=== PATIENT | female | born 1945 | race Caucasian/White ===

== ENCOUNTER 2020-04-09 13:00 | Emergency (ER) | payer MEDICARE, SELFPAY ==
[2020-04-09 13:00] VITALS: BP 91/69; PULSE 94; RESP 19; TEMP 36.7; O2SAT 98; BMI 32.3
--- NOTE | 2020-04-09 13:10 | PC.NURSE ---
Pt glucose on arrival was 77
--- NOTE | 2020-04-09 13:31 | HMH.EDGENADL ---
ED Disposition Clinical Impression: Hypoglycemia Disposition: Home, Self-Care Condition on Discharge: Good Instructions: DI for Hypoglycemia Additional Instructions: Decrease your dose of Lantus to 40 units instead of 44 (10% decrease) Be sure to eat regular meals and snacks as previously instructed by your auto overhauler Return to the emergency department if persistent low blood sugars less than 70. Call your auto overhauler tomorrow to make a follow-up appointment. Referrals: PCP,No [Non-Staff] - - Critical Care Critical Care Time: No Attestation: On 04/09/20, the high probability of a clinically significant, sudden or life threatening deterioration of the following system(s) required my full and direct attention, intervention and personal management. The time I documented below is in addition to time spent performing reported procedures but includes the following listed in this critical care notation. Medical Decision Making - Gunner Inquiry Pt receiving controlled substance: No Vital Signs: 04/09/20 13:00 04/09/20 13:43 04/09/20 14:42 Temperature 98.1 F Temperature Source Oral Pulse Rate Pulse Rate [Left Radial] 94 H 95 H 91 H Respiratory Rate 19 Blood Pressure Blood Pressure [Right Arm] 91/69 L 153/89 H 132/83 Blood Pressure Mean [Right Arm] 76 110 99 Blood Pressure Source Blood Pressure Source [Right Arm] Automatic Cuff Automatic Cuff Automatic Cuff Blood Pressure Position Blood Pressure Position [Right Arm] Sitting Sitting Sitting 02 Sat by Pulse Oximetry 98 96 99 Oxygen Delivery Method Room Air Room Air Room Air 04/09/20 15:11 04/09/20 15:28 04/09/20 16:05 Temperature 98.1 F Temperature Source Pulse Rate 94 H Pulse Rate [Left Radial] 94 H 97 H Respiratory Rate 18 18 16 Blood Pressure 135/78 Blood Pressure [Right Arm] 135/78 148/70 H Blood Pressure Mean [Right Arm] 97 96 Blood Pressure Source Automatic Cuff Blood Pressure Source [Right Arm] Automatic Cuff Automatic Cuff Blood Pressure Position Sitting Blood Pressure Position [Right Arm] Sitting Sitting 02 Sat by Pulse Oximetry 98 97 Oxygen Delivery Method Room Air Room Air Room Air - Lab Data Lab results reviewed: Yes: I reviewed the patient's lab results. Lab Results 04/09/20 14:20: WBC 20.8 H*, RBC 5.10, Hgb 14.6, Hct 45.7, MCV 89.6, MCH 28.7, MCHC 32.0, RDW 14.8, Plt Count 334, MPV 8.6, Neut % (Auto) 92.9 H, Lymph % (Auto) 3.5 L, [place] % (Auto) 3.2, Eos % (Auto) 0.2, Baso % (Auto) 0.2, Neut # (Auto) 19.3 H, Lymph # (Auto) 0.8, [place] # (Auto) 0.7, Eos # (Auto) 0.0, Baso # (Auto) 0.1, Total Counted 100, Neutrophils % (Manual) 96 H, Lymphocytes % (Manual) 4 L, Platelet Estimate Normal, RBC Morphology Normal 04/09/20 14:20: Sodium 138, Potassium 3.7, Chloride 102, Carbon Dioxide 23, Anion Gap 16.7 H, BUN 14, Creatinine 0.60, Estimated Creat Clear 58, Estimated GFR 98, Est GFR ( Amer) 119, Glucose 78, Calcium 9.7 04/09/20 14:40: Urine Color Yellow, Urine Appearance Cloudy, Urine pH 6.0, Ur Specific [place] >= 1.030, Urine Protein 1+, Urine Glucose (UA) 3+, Urine Ketones Trace, Urine Blood 1+, Urine Nitrate Negative, Urine Bilirubin Negative, Urine Urobilinogen 1.0, Ur Leukocyte Esterase Negative, Urine WBC 5-10, Ur Squamous Epith Cells Occasional, Urine Bacteria 3+ 04/09/20 14:58: POC Glucose 117 H 04/09/20 16:01: POC Glucose 142 H Result diagrams: 04/09/20 14:20 04/09/20 14:20 Orders (Tests/Meds): ORDERS Category Date Time Status Urine Culture Stat Micro 04/09/20 14:40 Received - Reevaluation(s) Time: 15:00 Reevaluation #1: Repeat blood sugar 117. Patient feels fine and would like to be discharged. Medical Decision Narrative: Leukocytosis is likely due to the stress of hypoglycemia, which sounds as if it was prolonged. 3:44 PM: The patient had ambulated to the bathroom while in the emergency department during treatment, but at the time of discharge when walking out with
--- NOTE | 2020-04-09 13:41 | PC.NURSE ---
meal tray called for pt
[2020-04-09 13:43] VITALS: BP 153/89; PULSE 95; O2SAT 96
[2020-04-09 14:35] LABS: Basophils # 0.1 K/mm3 (0-0.2); Basophils % 0.2 % (0.1-2.0); Eosinophils % 0.2 % (0.1-12.0); Hematocrit 45.7 % (37.0-47.0); Hemoglobin 14.6 g/dL (12.2-16.2); Lymphocytes # 0.8 K/mm3 (0.7-4.5); Lymphocytes % 3.5 % (10-50); Mean Corpuscular Hemoglobin 28.7 pg (27.0-31.2); Mean Corpuscular Volume 89.6 fl (81-99); Mean Platelet Volume 8.6 fl (7.4-10.4); Monocytes # 0.7 K/mm3 (0.1-1.0); Monocytes % 3.2 % (1.7-9.3); Neutrophils # 19.3 K/mm3 (1.8-7.8); Neutrophils % 92.9 % (37.0-80.0); Platelet Count 334 K/mm3 (142-424); Red Cell Distribution Width 14.8 % (11.5-17.5); White Blood Count 20.8 K/mm3 (4.8-10.8)
[2020-04-09 14:36] LABS: Chloride 102 mmol/L (98-107); Sodium 138 mmol/L (136-145)
[2020-04-09 14:37] LABS: Potassium 3.7 mmoL/L (3.5-5.1)
[2020-04-09 14:38] LABS: MANUAL DIFFERENTIAL MANUAL DIFFERENTIAL (MANUAL DIFF)
[2020-04-09 14:40] LABS: Anion Gap 16.7 mEq/L (5-15); Blood Urea Nitrogen 14 mg/dl (7-17); Calcium 9.7 mg/dl (8.4-10.2); Carbon Dioxide 23 mmol/L (22.0-30.0); Creatinine Clearance Estimated 58 mL/min (50-200); Estimated Glomerular Filt Rate 98 ml/min (>60); GFR (African American) 119 ML/MIN (>60); Glucose 78 mg/dl (74-100)
[2020-04-09 14:42] VITALS: BP 132/83; PULSE 91; O2SAT 99
[2020-04-09 14:44] LABS: Microscopic, Urine URINE MICROSCOPIC (MICROSCOPIC)
[2020-04-09 14:47] LABS: Appearance,Urine CLOUDY (Clear); Bilirubin,Urine Negative (Negative); Blood, Urine 1+ (Negative); Color,Urine YELLOW (Yellow); Glucose,Urine (UA) 3+ (Negative); Ketones,Urine TRACE (Negative); Leukocyte Esterase,Urine Negative (Negative); Nitrate,Urine Negative (Negative); Protein,Urine 1+ (Negative); Specific Gravity, Urine >= 1.030 (1.005-1.030)
[2020-04-09 14:55] LABS: Bacteria,Urine 3+ /lpf; Squamous Epithelial Cell,Urine Occasional #/hpf (0-5)
[2020-04-09 14:57] LABS: Lymphocytes % 4 % (10-50); Neutrophils % 96 % (42-76); Platelet Estimate Normal; RBC Morphology Normal; Total Cells Counted 100
--- NOTE | 2020-04-09 14:59 | PC.NURSE ---
fsbs 117
[2020-04-09 15:06] LABS: POC Glucose,Bedside 117 (70-110)
[2020-04-09 15:11] VITALS: BP 135/78; PULSE 94; RESP 18; O2SAT 98
[2020-04-09 15:28] VITALS: BP 135/78; PULSE 94; RESP 18; TEMP 36.7; O2SAT 98
--- NOTE | 2020-04-09 15:48 | PC.NURSE ---
pt daughter reports while pt was getting dressed pt was off balance. pt reports I just feel weak . Pt is alert, oriented x3. discussed with Dr. Salcedo, states to monitor pt for a little while longer, recheck pt glucose. Pt requested a salty snack and another drink, called dietary for this. Pt sitting in wheelchair in room at this time. Will continue to monitor.
--- NOTE | 2020-04-09 16:04 | PC.NURSE ---
fsbs 142 when i entered pt room pt was ambulating to the door independently, pt reports she feels fine, just no strength . No difficulty with ambulation or unsteadiness noted at this time. will continue to monitor notified ER MD
[2020-04-09 16:05] VITALS: BP 148/70; PULSE 97; RESP 16; O2SAT 97
[2020-04-09 16:09] LABS: POC Glucose,Bedside 142 (70-110)
--- NOTE | 2020-04-09 16:20 | PC.NURSE ---
pt d/c at this time, pt states she is feeling fine , pt reports she wants to go home. BECK WALTERS states okay for pt to be d/c .
[2020-04-16 13:43] LABS: POC Glucose,Bedside 77 (70-110)
== END 2020-04-09 16:20 | disposition home or self-care (01) ==
PROVIDERS: Emergency Provider Emergency Medicine; PCP Family Medicine
DX: E11.649 Type 2 diabetes mellitus with hypoglycemia without coma (principal); Z79.84 Long term (current) use of oral hypoglycemic drugs; Z79.4 Long term (current) use of insulin
CPT/HCPCS: 80048; 81001; 82962; 85007; 85025; 87086; 87088; 87186; 99283

== ENCOUNTER 2020-04-28 13:28 | Emergency (ER) | payer MEDICARE, SELFPAY ==
--- NOTE | 2020-04-28 13:45 | XR_ITS ---
PROCEDURE: XR RIBS LT MIN 3V W CXR1V CLINICAL INDICATION: FALL Pain following injury COMPARISON: No exams were available for comparison FINDINGS: Mildly displaced fractures involve the left 4th 5th 6 7th and 8th ribs. There is no evidence of pneumothorax. Frontal view of the chest shows a prior median sternotomy. A vague nodular opacity is present in the right upper lobe at 8 mm. IMPRESSION: 1. Mildly displaced left 4th through 8th rib fractures without obvious pneumothorax. 2. Indeterminate right upper lobe nodule. Dictated by: Jose M Peña MD 04/28/2020 14:35 Jose M Peña MD in [place] 04/28/2020 14:35
[2020-04-28 13:46] VITALS: BP 173/90; PULSE 91; RESP 18; TEMP 36.8; O2SAT 98; BMI 31.7
[2020-04-28 13:56] VITALS: BP 173/90; PULSE 91; RESP 18; TEMP 36.8; O2SAT 98; BMI 31.6
--- NOTE | 2020-04-28 14:06 | HMH.EDUTC ---
[facility] Disposition Clinical Impression: Fractured rib Qualifiers: Encounter type: initial encounter Rib fracture type: single rib Fracture type: closed Laterality: left Qualified Code(s): S22.32XA - Fracture of one rib, left side, initial encounter for closed fracture Disposition: Home, Self-Care Condition on Discharge: Good Instructions: How to Use an Incentive Spirometer, DI for Rib Fracture Additional Instructions: Use the incentive spirometer as directed (use it hourly x10 while awake). Take tylenol or ibuprofen for pain. Follow up with your primary care doctor. GO TO THE ER FOR ANY WORSENING SYMPTOMS, ESPECIALLY SHORTNESS OF BREATH, WORSENING PAIN, ETC Referrals: Marshal Calvillo MD [Primary Care Provider] - Time of Disposition: 14:26 Medical Decision Making - Medical Records Medical records reviewed: No: I reviewed the patient's medical records. - Gunner Inquiry Pt receiving controlled substance: No Vital Signs: 04/28/20 13:46 04/28/20 13:56 04/28/20 15:02 Temperature 98.2 F 98.2 F 98.2 F Temperature Source Oral Oral Oral Pulse Rate 91 H Pulse Rate [Right Radial] 91 H 91 H Respiratory Rate 18 18 18 Blood Pressure 173/90 H Blood Pressure [Right Arm] 173/90 H 173/90 H Blood Pressure Mean [Right Arm] 117 117 Blood Pressure Source Automatic Cuff Blood Pressure Source [Right Arm] Automatic Cuff Automatic Cuff Blood Pressure Position Sitting Blood Pressure Position [Right Arm] Sitting Sitting 02 Sat by Pulse Oximetry 98 98 Oxygen Delivery Method Room Air Room Air Room Air - Radiology Data #1 Image(s): Chest Image Reviewed: Yes I reviewed the patient's radiology image, Yes I have reviewed radiologist's interpretation Preliminary Findings: Abnormal PROCEDURE: XR RIBS LT MIN 3V W CXR1V CLINICAL INDICATION: FALL Pain following injury COMPARISON: No exams were available for comparison FINDINGS: Mildly displaced fractures involve the left 4th 5th 6 7th and 8th ribs. There is no evidence of pneumothorax. Frontal view of the chest shows a prior median sternotomy. A vague nodular opacity is present in the right upper lobe at 8 mm. IMPRESSION: 1. Mildly displaced left 4th through 8th rib fractures without obvious pneumothorax. 2. Indeterminate right upper lobe nodule. Dictated by: Jose M Peña MD 04/28/2020 14:35 Jose M Peña MD in [place] 04/28/2020 14:35 Medical Decision Narrative: I discussed this case with the er physician. It was felt that if she is not in any distress and seems to be doing ok then she should go home and then f/u closely with her pcp. [facility] HPI - General Stated complaint: Ao 04/28/20 Fall, left side pain Time Seen by Provider: 04/28/20 14:06 Mode of Arrival: Wheelchair Source of Information: Patient Limitations: No Limitations Description of Symptoms (Recalled from Triage Doc. by RN): pt c/o L rib pain r/t fall this AM. Pt reports she fell while getting out of bed this morning, states she missed her step from her stepping stool. Pt denies SOA, bruise noted to L breast area. HEENT Symptoms (Recalled from RN notes): No Resp Symptoms (Recalled from RN notes): No Skin Symptoms (Recalled from RN notes): No MS Symptoms (Recalled from RN notes): Yes Functional Status (Recalled from RN notes): wnl - History of Present Illness Provider Complaint: She states that she fell while getting out of bed this morning. She came down on her left side. She complains of left sided rib pain. She denies any shortness of breath. - Related Data Allergies Allergy/AdvReac Type Severity Reaction Status Date / Time No Known Allergies Allergy Verified 04/09/20 13:41 - Worker's Comp Is this a Worker's Comp case?: No [facility] History - Hepatitis A Screen Drug use history?: No High risk sexual behaviors?: No History of sexually transmitted infection?: No Currently employed?: No Childcare worker?: No Do you have indoor plumbing?:
[2020-04-28 15:02] VITALS: BP 173/90; PULSE 91; RESP 18; TEMP 36.8; O2SAT 98
--- NOTE | 2020-04-28 15:03 | PC.NURSE ---
Patient educated on the use of Incentive Spirometer. Daughter also educated on the use.
== END 2020-04-28 15:04 | disposition home or self-care (01) ==
PROVIDERS: Emergency Provider Nurse Practitioner Family; PCP Family Medicine
DX: S22.42XA Multiple fractures of ribs, left side, initial encounter for closed fracture (principal); W06.XXXA Fall from bed, initial encounter; Y92.013 Bedroom of single-family (private) house as the place of occurrence of the external cause
CPT/HCPCS: G0463; 71101; 99201

== ENCOUNTER → 2020-05-05 16:54 | Outpatient (CLI) | payer MEDICARE, SELFPAY ==
[2020-05-05 17:00] LABS: Microscopic, Urine URINE MICROSCOPIC (MICROSCOPIC)
[2020-05-05 19:18] LABS: Appearance,Urine CLEAR (Clear); Blood, Urine 3+ (Negative); Color,Urine YELLOW (Yellow); Glucose,Urine (UA) 3+ (Negative); Ketones,Urine Negative (Negative); Leukocyte Esterase,Urine Negative (Negative); Nitrate,Urine Negative (Negative); Protein,Urine TRACE (Negative); Specific Gravity, Urine >= 1.030 (1.005-1.030)
[2020-05-05 19:54] LABS: Bacteria,Urine 3+ /lpf; Bilirubin,Urine Negative (Negative); RBC,Urine Occasional #/hpf (0-3)
== END ==
PROVIDERS: Visit Provider Family Medicine
DX: N39.0 Urinary tract infection, site not specified (principal)
CPT/HCPCS: 81001; 87086; 87088; 87186

== ENCOUNTER 2022-05-09 09:24 | Observation (INO) | payer MEDICARE, SELFPAY ==
[2022-05-09 09:25] VITALS: BP 182/119; PULSE 114; RESP 18; TEMP 36.6; O2SAT 96; BMI 32.7
--- NOTE | 2022-05-09 09:28 | XR_ITS ---
PROCEDURE INFORMATION: Exam: XR Chest Exam date and time: 05/09/2022 9:58 AM Age: 76 years old Clinical indication: Pain; Angina pectoris; Additional info: Chest pain TECHNIQUE: Imaging protocol: Radiologic exam of the chest. Views: 1 view. COMPARISON: CR XR RIBS LT MIN 3V W CXR1V 04/28/2020 1:53 PM FINDINGS: Lungs: Unremarkable. No consolidation. Pleural spaces: Unremarkable. No pleural effusion. No pneumothorax. Heart/Mediastinum: Changes of prior CABG. Bones/joints: Remote left-sided rib fractures. IMPRESSION: No acute cardiopulmonary abnormality.
--- NOTE | 2022-05-09 09:32 | ECG_ITS ---
APPROVED REPORT Exam: Resting ECG HR:111 bpm ECG Measurements Heart Rate 111 AXES NH 158 P 68 QRSd 100 QRS 51 QT 297 T 37 QTc 363 Conclusion SINUS TACHYCARDIA Isolated Q in iii Nonspecific STTW changes ABNORMAL ECG UNCONFIRMED REPORT Electronically signed by : Nahid Bullock MD 05/09/2022 11:09:58
--- NOTE | 2022-05-09 09:32 | HMH.EDGENADL ---
Discharge Plan Disposition Patient Disposition: Admitted As Inpatient Chief Complaint: Chest Pain Prescriptions Prescriptions: No Action Jardiance 25 mg tablet PO isosorbide mononitrate 30 mg tablet extended release 24 hr PO fenofibric acid (choline) 135 mg capsule,delayed release(DR/EC) PO losartan 100 mg tablet PO Brilinta 90 mg tablet PO metformin 500 mg tablet extended release 24 hr PO glimepiride 4 mg tablet PO atorvastatin 40 mg tablet PO metoprolol tartrate 50 mg tablet PO Clinical Impressions Clinical Impression: Chest pain Discharge ED Provider: Rodrick Szymanski General Adult HPI General Chief complaint: Chest Pain Stated complaint: CP Time Seen by Provider: 05/09/22 09:32 History of Present Illness HPI narrative: Patient is a 76-year-old female past medical history of triple-vessel bypass on daily aspirin, hypertension who presents to the emergency department for evaluation of chest pain. Patient has had waxing and waning substernal chest pain for the last 2 months, worse nocturnally. Patient had onset of chest pain yesterday evening which has yet to resolve causing her to present here for continued evaluation. Chest pain over the last 2 months has been responsive to nitroglycerin. Patient denies cough, other acute complaints at this time. Symptoms are moderate to severe in intensity. Related Data Home Medications Medication Instructions Recorded Confirmed atorvastatin 40 mg tablet mg PO 08/19/21 09/02/21 empagliflozin 25 mg tablet mg PO 08/19/21 09/02/21 (Jardiance) fenofibric acid (choline) 135 mg mg PO 08/19/21 09/02/21 capsule,delayed release glimepiride 4 mg tablet mg PO 08/19/21 09/02/21 isosorbide mononitrate 30 mg mg PO 08/19/21 09/02/21 tablet,extended release 24 hr losartan 100 mg tablet mg PO 08/19/21 09/02/21 metformin 500 mg tablet,extended mg PO 08/19/21 09/02/21 release 24 hr metoprolol tartrate 50 mg tablet mg PO 08/19/21 09/02/21 ticagrelor 90 mg tablet (Brilinta) mg PO 08/19/21 09/02/21 Allergies Allergy/AdvReac Type Severity Reaction Status Date / Time No Known Allergies Allergy Verified 09/02/21 13:11 [facility] Disclaimer: The information contained in this section may have been updated after the patient was seen, as this information can be updated by other users. Medical History (Updated 05/09/22 @ 10:50 by Rodrick Szymanski MD) Diabetes Hypertension Surgical History (Updated 05/09/22 @ 09:41 by Vidhi Crum RN) Hx of CABG Family History (Updated 05/09/22 @ 09:41 by Vidhi Crum RN) Other No significant family history Social History (Updated 05/09/22 @ 09:41 by Vidhi Crum RN) Smoking Status: Never smoker alcohol intake: never current occupational status: other Travel in the last 8 weeks: None housing: house ROS Obtained: Yes Systems reviewed as appropriate & no additional complaints except as documented Physical Exam General General appearance: alert and in no apparent distress Head Head exam: atraumatic and normocephalic Eye Eye exam: Present PERRL and EOMI ENT ENT exam: Present mucous membranes moist Neck Neck exam: Present normal inspection Chest Chest inspection: Present normal inspection and symmetric chest wall rise Respiratory Respiratory exam: Present normal lung sounds bilaterally; Absent respiratory distress Cardiovascular Cardiovascular exam: Present normal rhythm and tachycardia Abdominal Exam Abdominal exam: Present soft; Absent tenderness Extremities Exam Extremities exam: Present normal inspection Neurological Exam Neurological exam: Present alert and oriented X3 Psychiatric Psychiatric exam: Present normal affect Skin Skin exam: Present warm and dry Medical Decision Making Gunner Inquiry Pt receiving controlled substance: No Vital Signs: 05/09/22 09:25 05/09/22 09:56
--- NOTE | 2022-05-09 09:35 | PC.NURSE ---
Dr. Soriano paged
[2022-05-09 09:37] VITALS: BMI 32.7
--- NOTE | 2022-05-09 09:37 | PC.NURSE ---
Dr. Szymanski speaking with Dr. Soriano at this time
--- NOTE | 2022-05-09 09:38 | PC.NURSE ---
notified pharmacy of need BECK harrison MD requesting parameter of sbp of 180
--- NOTE | 2022-05-09 09:38 | PC.NURSE ---
DR. CARBAJAL SPEAKING WITH CARDIOLOGY
[2022-05-09 09:42] LABS: Basophils # 0.1 K/mm3 (0-0.2); Basophils % 0.8 % (0.1-2.0); Eosinophils # 0.2 K/mm3 (0.0-0.4); Eosinophils % 2.1 % (0.1-12.0); Hematocrit 44.3 % (37.0-47.0); Hemoglobin 14.2 g/dL (12.2-16.2); Lymphocytes # 1.4 K/mm3 (0.7-4.5); Lymphocytes % 18.9 % (10-50); Mean Corpuscular HGB Conc 32.2 g/dL (31.8-35.4); Mean Corpuscular Hemoglobin 27.9 pg (27.0-31.2); Mean Corpuscular Volume 86.9 fl (81-99); Monocytes # 0.3 K/mm3 (0.1-1.0); Monocytes % 3.5 % (1.7-9.3); Neutrophils # 5.6 K/mm3 (1.8-7.8); Neutrophils % 74.7 % (37.0-80.0); Platelet Count 341 K/mm3 (142-424); Red Cell Distribution Width 14.6 % (11.5-17.5); White Blood Count 7.5 K/mm3 (4.8-10.8)
[2022-05-09 09:44] LABS: Chloride 103 mmol/L (98-107); Sodium 142 mmol/L (136-145)
[2022-05-09 09:45] LABS: Potassium 4.4 mmoL/L (3.5-5.1)
[2022-05-09 09:46] LABS: Coronavirus 19, PCR Not Detected (NotDetected); Influenza A, PCR Not Detected (NotDetected); Influenza B, PCR Not Detected (NotDetected)
[2022-05-09 09:47] LABS: Alanine Aminotransferase 26 U/L (12-78); Alkaline Phosphatase 89 U/L (38-126); Aspartate Amino Transferase 26 U/L (14-36); Bilirubin,Total 0.4 mg/dl (0.2-1.3); Blood Urea Nitrogen 24 mg/dl (7-17); Creatinine Clearance Estimated 57 mL/min (50-200); Estimated Glomerular Filt Rate 70 ml/min (>60); GFR (African American) 85 ML/MIN (>60)
[2022-05-09 09:48] LABS: Albumin Level 4.6 g/dl (3.5-5.0); Albumin/Globulin Ratio 1.3 (1.1-1.8); Anion Gap 15.4 mEq/L (5-15); Calcium 10.3 mg/dl (8.4-10.2); Carbon Dioxide 28 mmol/L (22.0-30.0); Globulin 3.6 g/dL (1.3-3.2); Glucose 328 mg/dl (74-100); Total Protein,Serum 8.2 g/dl (6.3-8.2)
[2022-05-09 09:56] VITALS: BP 159/77; PULSE 107; O2SAT 95
[2022-05-09 09:58] LABS: D-Dimer 0.57 ug/mL (0.0-0.5)
--- NOTE | 2022-05-09 10:02 | PC.NURSE ---
1000 B/P 149/73 1001 SARAHY BARRIGA, DR. CARBAJAL NOTIFIED
[2022-05-09 10:03] LABS: Troponin I < 0.01 ng/ml (0.00-0.034)
--- NOTE | 2022-05-09 10:44 | PC.NURSE ---
Dr. Soriano paged
--- NOTE | 2022-05-09 10:45 | PC.NURSE ---
Dr. Szymanski speaking with Dr. Soriano
--- NOTE | 2022-05-09 10:47 | PC.NURSE ---
PT ASSISTED TO BR, NO NEEDS AT THIS TIME
--- NOTE | 2022-05-09 11:02 | PC.NURSE ---
Dr. Szymanski speaking with Hospitalist at this time
--- NOTE | 2022-05-09 11:04 | PC.NURSE ---
Spoke with Laila in care management regarding admission
--- NOTE | 2022-05-09 11:30 | HMH.PHAINT1 ---
Pharmacy Intervention Comments: MEDICATION RECONCILIATION COMPLETED ON PATIENT USING EXTERNAL FILL HISTORY FROM PHARMACY. -GIBSON RODRIGUEZ, TERAD
--- NOTE | 2022-05-09 12:17 | PC.NURSE ---
BECK WALTERS at for update on POC
--- NOTE | 2022-05-09 12:54 | PC.NURSE ---
attempted to call report to second floor, waiting allied health professional back
--- NOTE | 2022-05-09 13:08 | PC.NURSE ---
report called to tami anna on second floor at this time, states will send staff down to get pt
[2022-05-09 13:15] VITALS: BP 161/74; PULSE 76; RESP 18; TEMP 36.7; O2SAT 99
--- NOTE | 2022-05-09 13:19 | PC.NURSE ---
patient arrived to floor by wheelchair from ED
[2022-05-09 13:20] VITALS: BP 151/83; PULSE 89; RESP 16; TEMP 36.7; O2SAT 95; BMI 30.3
[2022-05-09 13:22] LABS: Troponin I < 0.01 ng/ml (0.00-0.034)
[2022-05-09 16:00] VITALS: BP 156/81; PULSE 69; PULSE 77; RESP 16; TEMP 36.7; O2SAT 97
[2022-05-09 16:10] LABS: Troponin I < 0.01 ng/ml (0.00-0.034)
--- NOTE | 2022-05-09 17:31 | PC.NURSE ---
PT IS RESTING IN BED. ALERT AND ORIENTED X4. AMBULATES TO THE BATHROOM INDEPENDENTLY. LUNG SOUNDS CLEAR. ABDOMEN SOFT/NON TENDER WITH ACTIVE BOWEL SOUNDS. EDEMA NOTED TO BLE. WILL CONTINUE TO MONITOR.
[2022-05-09 17:34] LABS: POC Glucose,Bedside 174 (70-110)
--- NOTE | 2022-05-09 17:40 | EXP.HP ---
History of Present Illness *Admission Date: 05/09/22 *Reason for visit:: Chest pain *History of present illness: Patient is a 76-year-old woman with past medical history of CAD status post CABG x3 10 years ago, hypertension, diabetes mellitus type 2 who comes to the ER for intermittent chest pain for the past 2 months. Chest pain is dull, she tends to notice it as she is laying down to go to bed at night. Chest pain is not associated with exertion, and she tends to eat dinner later than she prefers, i.e. not leaving much time between dinner and bedtime. Patient reports her chest pain has resolved at this time, her blood pressure was very high in the ER, however this is improved since arriving to the floor. She denies having big spikes in her blood pressure intermittently, although she admits she does not check her blood pressure very often. [facility] Disclaimer: The information contained in this section may have been updated after the patient was seen, as this information can be updated by other users. Medical History (Updated 05/09/22 @ 17:50 by Goldy Avilez MD) Diabetes Hypertension Menopause Skin cancer Surgical History (Updated 05/09/22 @ 17:50 by Goldy Avilez MD) History of hysterectomy Hx of CABG Family History (Updated 05/09/22 @ 13:43 by Patricia Bal RN) Other Family history of diabetes mellitus type II No significant family history Social History Smoking Status: Never smoker alcohol intake: never current occupational status: other Travel in the last 8 weeks: None housing: house Review of Systems Constitutional Constitutional: Denies body ache(s), Denies chills, Denies difficulty sleeping, Denies fatigue, Denies fever(s), Denies headache(s), Denies increased appetite, Denies poor appetite, Denies lethargy and Denies weakness Eyes Eyes: Denies blurry vision and Denies change in vision ENT Ears, Nose, Mouth, and Throat: Denies abnormal hearing, Denies disequilibrium, Denies dizziness, Denies dysphagia and Denies headache(s) *Cardiovascular Cardiovascular: Reports chest pain (Associated with laying down, resolved at this time), Denies chest pain with activity, Denies dyspnea, Denies dyspnea on exertion, Denies edema and Reports leg edema (Mild) *Respiratory Respiratory: Denies chest congestion, Denies cough, Denies dyspnea, Denies dyspnea on exertion, Denies hemoptysis, Denies pain on inspiration and Denies pain with cough *Gastrointestinal Gastrointestinal: Denies abdominal pain, Denies constipation, Denies diarrhea, Reports dyspepsia, Denies dysphagia, Reports heartburn and Denies vomiting *Musculoskeletal Musculoskeletal: Denies abnormal gait, Denies back pain, Denies limited range of motion and Denies muscle weakness *Neurologic Neurologic: Denies abnormal gait, Denies abnormal hearing, Denies abnormal speech, Denies confusion, Denies convulsions, Denies disequilibrium, Denies dizziness, Denies localized weakness, Denies headache(s) and Denies weakness Psychiatric Psychiatric: Denies confusion Endocrine Endocrine: Denies fatigue Meds Home Medications and Allergies Home Medications Medication Instructions Recorded Confirmed Type atorvastatin 40 mg tablet 40 mg PO DAILY Cholesterol 08/19/21 05/09/22 History empagliflozin 25 mg tablet 25 mg PO DAILY Diabetes 08/19/21 05/09/22 History (Jardiance) fenofibric acid (choline) 135 mg 135 mg PO DAILY Cholesterol 08/19/21 05/09/22 History capsule,delayed release glimepiride 4 mg tablet 8 mg PO DAILY Diabetes 08/19/21 05/09/22 History isosorbide mononitrate 30 mg 30 mg PO DAILY Hypertension 08/19/21 05/09/22 History tablet,extended release 24 hr losartan 100 mg tablet 100 mg PO DAILY Hypertension 08/19/21 05/09/22 History metformin 500 mg tablet,extended 1,000 mg PO BID Diabetes 08/19/21 05/09/22 History release 24 hr New Prescriptions to Start Prescriptions: Allergies All
--- NOTE | 2022-05-09 18:08 | ECG_ITS ---
APPROVED REPORT Exam: Resting ECG HR:78 bpm ECG Measurements Heart Rate 78 AXES [place] 168 P 56 QRSd 98 QRS 16 QT 365 T 79 QTc 399 Conclusion SINUS RHYTHM Old late r wave progression Old isolated Q in iii ABNORMAL ECG UNCONFIRMED REPORT Electronically signed by : Nahid Bullock MD 05/10/2022 20:12:06
[2022-05-09 20:00] VITALS: BP 150/71; PULSE 70; PULSE 85; RESP 18; TEMP 36.6; O2SAT 95; O2SAT 97
[2022-05-09 22:09] LABS: POC Glucose,Bedside 212 (70-110)
[2022-05-10] VITALS: BP 134/63; PULSE 70; PULSE 79; RESP 20; TEMP 36.6; O2SAT 95
[2022-05-10 04:00] VITALS: BP 150/70; PULSE 70; PULSE 85; RESP 20; TEMP 36.6; O2SAT 97; BMI 30.2
[2022-05-10 05:57] LABS: POC Glucose,Bedside 154 (70-110)
[2022-05-10 06:05] LABS: Basophils # 0.1 K/mm3 (0-0.2); Basophils % 0.7 % (0.1-2.0); Eosinophils # 0.2 K/mm3 (0.0-0.4); Hematocrit 38.5 % (37.0-47.0); Lymphocytes # 1.8 K/mm3 (0.7-4.5); Mean Corpuscular HGB Conc 32.3 g/dL (31.8-35.4); Mean Corpuscular Hemoglobin 27.7 pg (27.0-31.2); Mean Corpuscular Volume 85.7 fl (81-99); Mean Platelet Volume 8.8 fl (7.4-10.4); Monocytes # 0.5 K/mm3 (0.1-1.0); Monocytes % 5.9 % (1.7-9.3); Neutrophils # 5.3 K/mm3 (1.8-7.8); Neutrophils % 67.3 % (37.0-80.0); Platelet Count 292 K/mm3 (142-424); Red Cell Distribution Width 14.5 % (11.5-17.5); White Blood Count 7.8 K/mm3 (4.8-10.8)
[2022-05-10 06:06] LABS: Chloride 107 mmol/L (98-107); Potassium 3.8 mmoL/L (3.5-5.1); Sodium 139 mmol/L (136-145)
[2022-05-10 06:08] LABS: Alanine Aminotransferase 15 U/L (12-78); Alkaline Phosphatase 65 U/L (38-126); Anion Gap 11.8 mEq/L (5-15); Aspartate Amino Transferase 23 U/L (14-36); Bilirubin,Total 0.4 mg/dl (0.2-1.3); Blood Urea Nitrogen 22 mg/dl (7-17); Carbon Dioxide 24 mmol/L (22.0-30.0); Creatinine Clearance Estimated 53 mL/min (50-200); Estimated Glomerular Filt Rate 121 ml/min (>60); GFR (African American) 146 ML/MIN (>60); Lactic Acid 0.6 mmol/L (0.7-2.1)
[2022-05-10 06:09] LABS: Albumin Level 3.7 g/dl (3.5-5.0); Albumin/Globulin Ratio 1.2 (1.1-1.8); Calcium 9.2 mg/dl (8.4-10.2); Globulin 3.1 g/dL (1.3-3.2); Glucose 116 mg/dl (74-100); Total Protein,Serum 6.8 g/dl (6.3-8.2)
[2022-05-10 06:10] LABS: Magnesium 1.9 mg/dl (1.6-2.3)
[2022-05-10 06:18] LABS: NT Pro Brain Natriuretic Pep. 386 pg/mL (0-125)
[2022-05-10 06:32] LABS: Hemoglobin 12.5 g/dL (12.2-16.2); Troponin I < 0.01 ng/ml (0.00-0.034)
--- NOTE | 2022-05-10 07:00 | XR_ITS ---
FINAL REPORT CLINICAL HISTORY: chest pain COMPARISON: April 28, 2020 and May 09, 2022 FINDINGS: Two views of the chest were obtained. There are postoperative changes from median sternotomy. The heart size and pulmonary vascularity are within normal limits. The mediastinum is normal. No acute pulmonary abnormality is identified. There is no pneumothorax. There are postoperative changes in the left thorax. There are left 6 through 8th lateral rib fractures. IMPRESSION: No active cardiopulmonary disease. Left 6 - 8th lateral rib fractures. No pneumothorax. Reviewed, Interpreted and Dictated by Frandy Mercer III, MD Transcribed by Vianca Michaels Authenticated and [facility]
--- NOTE | 2022-05-10 07:03 | PC.NURSE ---
Pt AOx4. No c/o voiced to staff. Ambulating to BR standby assist. Call light within reach.
--- NOTE | 2022-05-10 07:53 | CA_ITS ---
APPROVED REPORT EXAM: Comprehensive 2D, Doppler, and color-flow Echocardiogram Paper Supervisor: Aniya Aponte CRT Ht: 4 ft 11 in Wt: 150lbs BSA: 1.63 BP: 151/83 mmHg Indications: Chest Pain, Shortness of Breath, Peripheral Edema, Hyperlipidemia, Hypertension/HDD 2D Dimensions LVOT 1.86 cm (M/F) 1.5-2.5 LA Volume 32.90 mL LA Volume Index 19.70 mL/m2 (M/F) 16-34 M-Mode Dimensions RVDd 3.78 cm (0.9-2.6) LA Diam 3.03 cm (1.9-4.0) LVDd 3.93 cm (3.5-5.7) Ao Diam 3.34 cm (2.0-3.7) LVDs 2.96 cm (3.5-5.7) IVSd 1.25 cm (0.6-1.1) PWd 0.93 cm (0.6-1.1) EF (Teich) 49.50% FS 24.70% EDV (Teich) 67.10 mL TAPSE 1.74 (<1.7) ESV (Teich) 33.90 mL LV Diastology E Decel Time 203.00 (160-240 msec) E/A Ratio 0.96 MED E' 3.30 (< 7 cm/sec) MED A' 6.50 cm/s E'/MED E' Ratio 40.61 (>14) LAT E' 5.30 (<10 cm/sec) LAT A' 10.20 cm/s E/LAT E' Ratio 25.28 (>14) Aortic Valve AO Peak GR. 7.70 mmHg Mitral Valve MV E Max Kirby. 134.00 (40-130 cm/s) MV A Velocity 140.00 (40-130 cm/s) E/A Ratio 0.96 MV Decel. Time 203.00 (160-240 ms) MV PHT 60.00 ms Pulmonary Valve PV Peak Velocity 138.00 (50-150 cm/s) Tricuspid Valve TR P. Velocity 224.00 cm/s RAP Estimate 10.00 mmHg RVSP 30.10 mmHg Left Ventricle Left atrium is mildly enlarged, left ventricle is normal size, mild concentric left ventricular hypertrophy, estimated ejection fraction 55% with no regional wall motion abnormality, grade 1 diastolic dysfunction seen with tissue Doppler evidence of raise left atrial pressure. Right Ventricle Right atrium and right ventricle are mildly enlarged with normal contractility. Aortic Valve Aortic valve is minimally thickened and calcified without aortic stenosis or aortic insufficiency. Mitral valve is grossly normal, there is trace mitral regurgitation. Tricuspid Valve Tricuspid grossly normal, there is trace tricuspid regurgitation. Pulmonic Valve Pulmonic valve is poorly visualized. Great Vessels Aortic root is normal size. Inferior vena cava is poorly visualized. Pericardium No significant pericardial effusion noted. Conclusion 1. Mild biatrial enlargement, normal left ventricular size, mild concentric left ventricular hypertrophy, estimated ejection fraction 55% with no regional wall motion abnormality, grade 1 diastolic dysfunction seen without tissue Doppler evidence of raise left atrial pressure. 2. The right ventricle is mildly enlarged with normal contractility. 3. Trace mitral and tricuspid regurgitation. 4. No significant pericardial effusion noted. 5. Inferior vena cava is poorly visualized. Electronically signed by : Eloy Dowling MD 05/10/2022 16:37:51
[2022-05-10 08:00] VITALS: BP 149/73; PULSE 87; RESP 18; TEMP 36.6; O2SAT 96
--- NOTE | 2022-05-10 11:03 | EXP.DC.SUM ---
General Admission date:: 05/09/22 Discharge date: 05/10/22 HPI HPI HPI: Patient is a 76-year-old woman with past medical history of CAD status post CABG x3 10 years ago, hypertension, diabetes mellitus type 2 who comes to the ER for intermittent chest pain for the past 2 months. Chest pain is dull, she tends to notice it as she is laying down to go to bed at night. Chest pain is not associated with exertion, and she tends to eat dinner later than she prefers, i.e. not leaving much time between dinner and bedtime. Patient reports her chest pain has resolved at this time, her blood pressure was very high in the ER, however this is improved since arriving to the floor. She denies having big spikes in her blood pressure intermittently, although she admits she does not check her blood pressure very often. Hospital Course Hospital Course Hospital Course: Patient is a 76-year-old woman with past medical history of CAD status post CABG x3 10 years ago, hypertension, diabetes mellitus type 2 who is admitted for chest pain rule out. Serial troponin negative overnight. EKG in the morning at baseline, old changes present, no acute ischemic changes //Chest pain //Hypertension - Symptoms most compatible with GERD vs ACS as they tend to happen at night while laying down, not with exertion. Blood pressure noted to be severely elevated on presentation as well however. Pain resolved with improvement in blood pressure. Briefly on nicardipine drip that was stopped as her blood pressure improved and home regimen resumed. Serial troponins monitored, undetectable x3. EKG with old Q waves but no acute ischemic changes noted. Would benefit from outpatient eval and further work-up from cardiology. We will plan to have her see cardiology in the coming week. Addressed patient's hypertension with addition of carvedilol to her regimen. Additionally echo obtained, prelim read showing EF approximately 50%. No significant elevation in RVSP. Formal read still pending. //DM 2 - Pt reports A1c was approximately 7 in late March. Glucose high during admission. Has come down well with intervention however. Continue home regimen of jardiance, metformin, and glimepiride. Recommend reevaluating as an outpatient with her PCP. Stable for discharge home, plan to follow-up with cardiology for further outpatient eval. Exam Data for Last 24 hours Vital signs and Labs for Last 24 Hours: Temp Pulse Resp BP Pulse Ox 97.8 F 87 18 149/73 H 96 05/10/22 08:00 05/10/22 08:00 05/10/22 08:00 05/10/22 08:00 05/10/22 08:00 Laboratory Results - last 24 hr 05/09/22 12:33: Troponin I < 0.01 05/09/22 15:35: Troponin I < 0.01 05/09/22 17:23: POC Glucose 174 H 05/09/22 20:53: POC Glucose 212 H 05/10/22 05:39: NT-Pro-B Natriuret Pep 386 H 05/10/22 05:39: Troponin I < 0.01 05/10/22 05:39: WBC 7.8, RBC 4.50, Hgb 12.5 D, Hct 38.5, MCV 85.7, MCH 27.7, MCHC 32.3, RDW 14.5, Plt Count 292, MPV 8.8, Neut % (Auto) 67.3, Lymph % (Auto) 23.0, [place] % (Auto) 5.9, Eos % (Auto) 3.0, Baso % (Auto) 0.7, Neut # (Auto) 5.3, Lymph # (Auto) 1.8, [place] # (Auto) 0.5, Eos # (Auto) 0.2, Baso # (Auto) 0.1 05/10/22 05:39: Sodium 139, Potassium 3.8, Chloride 107, Carbon Dioxide 24, Anion Gap 11.8, BUN 22 H, Creatinine 0.50 L D, Estimated Creat Clear 53, Estimated GFR 121, Est GFR ( Amer) 146 D, Glucose 116 H D, Calcium 9.2, Total Bilirubin 0.4, AST 23, ALT 15 D, Alkaline Phosphatase 65, Total Protein 6.8, Albumin 3.7 D, Globulin 3.1, Albumin/Globulin Ratio 1.2 05/10/22 05:39: Lactate 0.6 L 05/10/22 05:39: Magnesium 1.9 05/10/22 05:50: POC Glucose 154 H I & O for Last 24 hours: Intake & Output 05/07/22 05/08/22 05/09/22 05/10/22 23:59 23:59 23:59 23:59 Intake Total 360 / 360 896 / 896 Output Total 0 / 0 450 / 450 Balance 360 / 360 446 / 446 Weight 68.067 kg 68.084 kg Constitutional Constitutional: no acute distress and obese *Routine HEENT Exam Head: Present no
[2022-05-10 11:13] LABS: POC Glucose,Bedside 201 (70-110)
--- NOTE | 2022-05-12 14:46 | CARE MANAGER ---
Unable to reach Ms. Noble per phone number listed in chart to discuss post discharge status. Attempted x 2.
== END 2022-05-10 12:54 | disposition home or self-care (01) ==
LOC: ER 10:50 → 2ND 13:25
PROVIDERS: Admitting Provider Emergency Medicine; Emergency Provider Emergency Medicine; PCP Family Medicine; Visit Provider Emergency Medicine
DX: R07.9 Chest pain, unspecified (principal); Z95.1 Presence of aortocoronary bypass graft; E11.9 Type 2 diabetes mellitus without complications; I10 Essential (primary) hypertension; I25.10 Atherosclerotic heart disease of native coronary artery without angina pectoris; Z79.84 Long term (current) use of oral hypoglycemic drugs; Z79.899 Other long term (current) drug therapy; R06.9 Unspecified abnormalities of breathing
CPT/HCPCS: G0378; 36415; 71045; 71046; 80053; 82962; 83605; 83735; 83880; 84484; 85025; 85378; 93005; 93306; 99285; C9803; U0003; U0005

== ENCOUNTER → 2022-06-08 06:07 | Outpatient (CLI) | payer MEDICARE, SELFPAY ==
--- NOTE | 2022-06-08 06:25 | NM_ITS ---
APPROVED REPORT Exam: Nuclear Stress Test Indication: CAD, CABG, HTN, DM, HYPERLIPIDEMIA, C.P., FATIGUE Patient Location: Outpatient Stress Tech: Beverly Roth NM Tech:Sultana Bales KAVONHeather RT (R)(N)(M) Ht: 4 ft 11 in Wt: 162 lbs Bra Size: C HR: 77 bpm BP: 170/69 mmHg BSA: 1.69 m2 TID: 1.55 BMI: 32.7 History: CAD, CABG, HTN, DM, HYPERLIPIDEMIA, C.P., FATIGUE Procedure: Patient received a 0.4 mg of intravenous Lexiscan, resting heart rate 77 bpm, resting blood pressure 170/69 mmHg, with Lexiscan maximum heart rate achived was 89 bpm which is Less than 85 % of the maximum predicted heart rate and blood pressure was 159/77 mmHg. PATIENT DID C/O C.P. WITH LEXISCAN Electrocardiogram Resting electrocardiogram shows sinus rhythm, with Lexiscan there is [address] segment depression noted from the baseline EKG. The EKG portion of the Lexiscan is positive for ischemia. Cardiac Stress and Resting SPECT Images: Cardiac Stress and Resting SPECT images were obtained using technetium 99m Myoview 30.2 mCi stress and 10.19 mCi at rest. Gated SPECT analysis of segmental wall motion and calculation of the ejection fraction also done. Prone images were also obtained. Cardiac stress and rest SPECT may show uniform myocardial activity without segmental perfusion abnormality, there is transient ischemic dilatation of the left ventricle seen, right ventricle is mildly enlarged with normal contractility. Transient ischemic dilatation of the ventricle is likely secondary to balanced ischemia. Conclusion: 1. The EKG portion of the Lexiscan is positive for ischemia. 2. No scintigraphic evidence of reversible ischemia seen, there is transient ischemic dilatation of the left ventricle seen, computer derived ejection fraction of 50% with no regional wall motion abnormality, right ventricle is mildly enlarged with normal contractility. 3. Abnormal Lexiscan Myoview study. Electronically signed by : Eloy Dowling MD 06/09/2022 06:41:58
--- NOTE | 2022-06-08 08:05 | HMH.ITSHM ---
Current Home Medications as stated by this patient Rachana Noble or sales representative cash registers. []TICAGRELOR PANTOPRAZOLE NITRO METFORMIN LOSARTAN ISOSORBIDE GLIMEPIRIDE FENOFIBRIC ACID EMPAGLIFLOZIN CETIRIZINE CARVEDILOL ATORVASTATIN ASA
--- NOTE | 2022-06-08 09:56 | CA_ITS ---
APPROVED REPORT Exam: Pharmacologic Technologist: Beverly Roth Ht: 4 ft 11 in Wt: 149 lbs BSA: 1.63 m2 HR: 77 bpm BP: 170/69 mmHg Indications: Chest pain Medical History Medications: Isosorbide,,,,, Aspirin,,,,, Metformin,,,,, Losartan,,,,, Pantoprazole,,,,, Atorvastatin,,,,, Carvedilol,,,,, BRILINTA,,,,, Nitroglycerin,,,,, JaRDiance,,,,, CetIRIZINE,,,,, Glimpiride,,,,, Stress Test Details Test: LEXISCAN HR Resting HR: 84 bpm Max Heart Rate (APMHR): 146.667776 bpm Max HR Achieved: 107 bpm Target HR (85% APMHR): 124.671013 bpm % of APMHR: 73.29 Recovery HR: 89 bpm BP Resting BP: 170.0/69.0 mmHg Max BP: 170.0/69.0 mmHg Recovery BP: 165.0/74.0 mmHg ECG Resting ECG: Normal sinus rhythm, PVCs, NS ST abnormalities. Clinical Exercise duration: 04:00 min Highest Stage Achieved: Exercise capacity: 1.0 METs Stress ECG Conclusion Symptoms: Mild chest pressure, shortness of air, mild stomach and head discomfort. Arrhythmias/Ectopy: Moderately frequent PVCs. ST-T Changes: Inferior and lateral T wave inversion with 1.5 - [address] depression. Approximately 1 mm J point elevation in lead aVR. Conclusion: EKG changes positive for ischemia with Lexiscan stress. Myoview images reported separately. Test Summary REST . . . . . . . Resting REST 11:55 . . 84 . 170/ 69 . . Stage 1 . . . . . . . Myoview Injected Stage 1 01:00 . . 104 . . . . Stage 2 01:00 . . 103 . 159/ 77 . . Stage 3 01:00 . . 98 . 162/ 73 . . Stage 4 01:00 . . 96 . 167/ 76 . Stop exercise at 04:00 RECOVERY 01:00 . . 96 . . . . RECOVERY 02:00 . . 101 . . . . RECOVERY 03:00 . . 96 . 168/ 78 . . RECOVERY 04:00 . . 93 . 168/ 78 . . RECOVERY . . . . . . . Chest pain RECOVERY 05:00 . . 94 . 168/ 78 . . RECOVERY 06:00 . . 71 . 167/ 72 . . RECOVERY 07:00 . . 91 . 165/ 74 . . RECOVERY 08:00 . . 88 . 165/ 74 . . RECOVERY 09:00 . . 93 . 165/ 74 . . RECOVERY 09:25 . . 92 . 165/ 74 . . Electronically signed by : lEoy Dowling MD 06/09/2022 06:35:06
== END ==
LOC: RAD 06:10
PROVIDERS: PCP Family Medicine; Visit Provider Physician Assistant
DX: E11.9 Type 2 diabetes mellitus without complications (principal); I10 Essential (primary) hypertension; R94.31 Abnormal electrocardiogram [ECG] [EKG]; Z95.1 Presence of aortocoronary bypass graft; I20.8 Other forms of angina pectoris; Z79.84 Long term (current) use of oral hypoglycemic drugs
CPT/HCPCS: 78452; 93017; A9502; J2785

== ENCOUNTER 2022-06-21 08:21 | Day surgery (SDC) | payer MEDICARE, SELFPAY ==
[2022-06-21] VITALS (19 sets, daily range): BP systolic 142–201; BP diastolic 66–105; PULSE 80–107; RESP 17–18; O2SAT 95–99; BMI 30.4
--- NOTE | 2022-06-21 07:02 | IR_ITS ---
APPROVED REPORT Patient Location: Outpatient Fabrication Welder: OSBALDO Banerjee RT (R) PROCEDURES Selective coronary angiogram Selective engage the left internal mammary artery Selective engage the saphenous vein graft right coronary Selective engagement of saphenous vein graft to the diagonal artery Section occasional saphenous vein graft to first obtuse marginal artery Selective occasional saphenous vein graft to the second obtuse marginal artery INDICATION Coronary artery disease, Accelerated angina pectoris, History of coronary bypass surgery, Informed consent was obtained prior to the procedure. COMPLICATIONS None Estimated Blood Loss: Less than 10 mls TECHNIQUE One percent lidocaine used to anesthetize the right groin. The right femoral artery was accessed via the Seldinger technique and a 5 [place] sheath was placed in the right femoral artery. A JL 4, JR4 catheter were used to perform left heart catheterization, left ventriculogram selective coronary angiography as well as selective engagement of the 4 vein grafts and the left internal mammary artery. At the end of the procedure the patient was transferred to the postop holding area in stable condition for sheath removal. ANGIOGRAPHIC RESULTS The left main artery He has distal hazy 10 to 20% stenosis The left anterior descending artery Proximally occluded The circumflex artery Gives rise to a small unbypassed ramus intermedius 1 mm in diameter which has a proximal 90% and mid vessel long 90% stenosis. The circumflex artery itself has a proximal hazy 70% stenosis with an additional tandem 50% stenoses which extend into the first obtuse marginal artery. The first obtuse marginal artery and has a long tubular 50% stenosis followed by an additional 50% stenosis The right coronary artery Is dominant and proximally subtotally occluded The AGUILA ventriculogram reveals Not performed The left ventricular end-diastolic pressure Not measured HESS to LAD widely patent. Distal to the anastomosis the mid LAD has a concentric 80 to 90% stenosis where the vessel was approximately 2 to 2.25 mm in diameter followed by an additional 80% distal stenosis Saphenous graft to right coronary artery is widely patent. The graft has a mid vessel 50% stenosis which is actually adequately sized for the [place] posterior descending artery where the vein graft makes its anastomosis. Distal to the anastomosis there is a long 90% stenosis which extends throughout the midportion of the posterior descending artery. The posterior descending artery is less than 2 mm in diameter. It then backfills the posterior lateral ventricular branch which has 3 different branches and is widely patent 3 saphenous vein grafts are all ostially occluded IMPRESSION Coronary disease as described above PLAN 1. Strongly recommend medical management. Despite the 80-90% stenoses which are described above these lesions are not ideal for stenting. The vessels are small in caliber and are extensively calcified. It is unlikely stents would provide substantive long-term revascularization as in-stent restenosis is most likely to occur relatively quickly. Because of this I believe medical management can be aggressively pursued 2. Patient is currently hypertensive with a fast heart rate. Carvedilol will be increased from 6.25 twice daily up to 25 mg twice daily. Additional antianginal medications can be adjusted as an outpatient 3. Aggressive risk factor modification with LDL less than 55 to be achieved with high intensity statin 4. If blood pressure and heart rate are better controlled and patient continues to experience recalcitrant quality of life limiting angina only then when
[2022-06-21 09:08] LABS: Basophils % 0.8 % (0.1-2.0); Eosinophils # 0.2 K/mm3 (0.0-0.4); Eosinophils % 2.8 % (0.1-12.0); Hematocrit 41.5 % (37.0-47.0); Hemoglobin 13.8 g/dL (12.2-16.2); Lymphocytes # 1.3 K/mm3 (0.7-4.5); Lymphocytes % 22.8 % (10-50); Mean Corpuscular HGB Conc 33.2 g/dL (31.8-35.4); Mean Corpuscular Hemoglobin 27.9 pg (27.0-31.2); Mean Corpuscular Volume 83.9 fl (81-99); Mean Platelet Volume 9.6 fl (7.4-10.4); Monocytes # 0.4 K/mm3 (0.1-1.0); Monocytes % 7.1 % (1.7-9.3); Neutrophils # 3.7 K/mm3 (1.8-7.8); Neutrophils % 66.5 % (37.0-80.0); Platelet Count 272 K/mm3 (142-424); Red Blood Count 4.94 M/mm3 (4.20-5.40); Red Cell Distribution Width 14.7 % (11.5-17.5); White Blood Count 5.5 K/mm3 (4.8-10.8)
[2022-06-21 09:09] LABS: Chloride 106 mmol/L (98-107); Potassium 4.2 mmoL/L (3.5-5.1); Sodium 139 mmol/L (136-145)
[2022-06-21 09:12] LABS: Anion Gap 11.2 mEq/L (5-15); Blood Urea Nitrogen 20 mg/dl (7-17); Calcium 9.3 mg/dl (8.4-10.2); Carbon Dioxide 26 mmol/L (22.0-30.0); Creatinine Clearance Estimated 53 mL/min (50-200); Estimated Glomerular Filt Rate 121 ml/min (>60); GFR (African American) 146 ML/MIN (>60); Glucose 200 mg/dl (74-100)
== END 2022-06-21 14:45 | disposition home or self-care (01) ==
PROVIDERS: PCP Family Medicine; Visit Provider Internal Medicine
DX: I25.118 Atherosclerotic heart disease of native coronary artery with other forms of angina pectoris (principal); Z95.1 Presence of aortocoronary bypass graft; Z79.899 Other long term (current) drug therapy; I10 Essential (primary) hypertension; E78.5 Hyperlipidemia, unspecified; E11.9 Type 2 diabetes mellitus without complications; Z79.84 Long term (current) use of oral hypoglycemic drugs; I25.728 Atherosclerosis of autologous artery coronary artery bypass graft(s) with other forms of angina pectoris
CPT/HCPCS: 80048; 85025; 93455; 99152; C1725; C1769; C1894; J1644; Q9967

== ENCOUNTER 2024-03-06 13:09 | Outpatient (CLI) | payer MEDICARE, SELFPAY ==
[2024-03-06 18:32] LABS: Basophils % 0.5 % (0.1-2.0); Eosinophils # 0.2 K/mm3 (0.0-0.4); Eosinophils % 2.4 % (0.1-12.0); Hematocrit 41.2 % (37.0-47.0); Hemoglobin 13.2 g/dL (12.2-16.2); Lymphocytes % 15.2 % (10-50); Mean Corpuscular HGB Conc 31.9 g/dL (31.8-35.4); Mean Corpuscular Hemoglobin 28.4 pg (27.0-31.2); Mean Corpuscular Volume 89.1 fl (81-99); Mean Platelet Volume 11.4 fl (7.4-10.4); Monocytes # 0.4 K/mm3 (0.1-1.0); Monocytes % 5.6 % (1.7-9.3); Neutrophils # 5.3 K/mm3 (1.8-7.8); Neutrophils % 76.4 % (37.0-80.0); Platelet Count 262 K/mm3 (142-424); Red Blood Count 4.63 M/mm3 (4.20-5.40); Red Cell Distribution Width 14.8 % (11.5-17.5); White Blood Count 6.9 K/mm3 (4.8-10.8)
[2024-03-06 18:47] LABS: Alanine Aminotransferase 15 U/L (12-78); Albumin/Globulin Ratio 1.3 (1.1-1.8); Alkaline Phosphatase 112 U/L (38-126); Anion Gap 15.4 mEq/L (5-15); Aspartate Amino Transferase 20 U/L (14-36); Bilirubin,Total 0.8 mg/dl (0.2-1.3); Blood Urea Nitrogen 22 mg/dl (7-17); Calcium 9.4 mg/dl (8.4-10.2); Carbon Dioxide 25 mmol/L (22.0-30.0); Chloride 102 mmol/L (98-107); Chol/HDL Ratio 3.7 (1-3.5); Cholesterol 139 mg/dl (140-200); Estimated Glomerular Filt Rate 97 ml/min (>60); GFR (African American) 118 ML/MIN (>60); Globulin 3.1 g/dL (1.3-3.2); Glucose 349 mg/dl (74-100); HDL Cholesterol 38 mg/dl (40-60); Potassium 4.4 mmoL/L (3.5-5.1); Sodium 138 mmol/L (136-145); Total Protein,Serum 7.1 g/dl (6.3-8.2); Triglycerides 290 mg/dl (30-150); VLDL Cholesterol 58 mg/dL (0-40)
[2024-03-06 18:58] LABS: Direct LDL Cholesterol 68.88 mg/dL (100-129)
[2024-03-06 19:17] LABS: Thyroid Stimulating Hormone 2.46 uIU/mL (0.465-4.68)
== END 2024-03-06 23:59 | disposition home or self-care (01) ==
LOC: LAB.DROPOF 03-07 13:10
PROVIDERS: PCP Family Medicine; Visit Provider Family Medicine
DX: I10 Essential (primary) hypertension (principal); L98.9 Disorder of the skin and subcutaneous tissue, unspecified; E78.5 Hyperlipidemia, unspecified
CPT/HCPCS: 80053; 80061; 84443; 85025

== ENCOUNTER 2024-03-22 11:01 | Outpatient (CLI) | payer MEDICARE, SELFPAY ==
--- NOTE | 2024-03-22 11:04 | CA_ITS ---
APPROVED REPORT EXAM: Comprehensive 2D, Doppler, and color-flow Echocardiogram Director Rehabilitation Program: Saumya Webb RT(R) Ht: 4 ft 11 in Wt: 142lbs BSA: 1.59 BP: 115/53 mmHg Indications: angina, HTN, DM, hyperlipidemia, CAD, abn EKG, DD, hx CABG. 2D Dimensions LA Volume 32.90 mL LA Volume Index 20.56 mL/m2 (M/F) 16-34 EF AP4 64.10 % GL Strain -17.5 % M-Mode Dimensions RVDd 2.68 cm (0.9-2.6) LA Diam 3.12 cm (1.9-4.0) LVDd 4.19 cm (3.5-5.7) LVDs 2.97 cm (3.5-5.7) IVSd 1.07 cm (0.6-1.1) PWd 1.04 cm (0.6-1.1) EF (Teich) 56.20% FS 29.10% EDV (Teich) 78.10 mL ESV (Teich) 34.20 mL LV Diastology E Decel Time 187 (160-240 msec) E/A Ratio 0.8 Mitral Valve MV E Max Kirby. 86.0 (40-130 cm/s) MV A Velocity 107.0 (40-130 cm/s) E/A Ratio 0.80 MV PHT 55.0 ms Tricuspid Valve TR P. Velocity 503.00 cm/s RAP Estimate 15.00 mmHg RVSP 116.20 mmHg Left Ventricle The left ventricle is normal size. The left ventricular systolic function is normal. The left ventricular ejection fraction is within the normal range. There is increased LV wall thickness. There is normal LV segmental wall motion. Transmitral Doppler flow pattern suggests impaired LV relaxation. LVEF is 55%. Right Ventricle Right ventricle is mildly dilated. Right ventricle is mildly hypokinetic. Atria The left atrium size is normal. The right atrium size is normal. There is no Doppler evidence of interatrial shunt. Aortic Valve The aortic valve is mildly thickened. There is no aortic valvular stenosis. No aortic regurgitation is present. Mitral Valve The mitral valve is mildly thickened. No evidence of mitral valve stenosis. Trace mitral regurgitation. Tricuspid Valve Tricuspid valve is grossly normal in structure and function. Mild tricuspid regurgitation. RVSP is 30-35 mmHg. Pulmonic Valve The pulmonary valve is normal in structure. Trace pulmonic regurgitation. Great Vessels The aortic root is normal in size. The ascending aorta is not well-visualized. IVC is normal in size and collapses >50% with inspiration. Pericardium There is no pericardial effusion. Other Information Study Quality: Fair Conclusion Normal LV systolic function. Mild RV dilation with mild reduction in RV function. Mild TR. RVSP is 30-35 mmHg. Electronically signed by : Julienne Moralez MD 03/25/2024 23:14:45
== END 2024-03-22 23:59 | disposition home or self-care (01) ==
PROVIDERS: PCP Family Medicine; Visit Provider Nurse Practitioner
DX: I36.1 Nonrheumatic tricuspid (valve) insufficiency (principal); I11.9 Hypertensive heart disease without heart failure; I25.708 Atherosclerosis of coronary artery bypass graft(s), unspecified, with other forms of angina pectoris
CPT/HCPCS: 93306

== ENCOUNTER 2024-04-29 13:52 | Observation (INO) | payer MEDICARE, SELFPAY ==
[2024-04-29] VITALS (14 sets, daily range): BP systolic 177–218; BP diastolic 74–134; PULSE 86–108; RESP 18–20; TEMP 36.7–36.9; O2SAT 92–96; BMI 29.2; BMI 30.6
--- NOTE | 2024-04-29 14:23 | CT_ITS ---
FINAL REPORT CLINICAL HISTORY: R sided weakness, L sided numbness FINDINGS: CTA NECK Thin section axial CT with contrast with multiplanar reconstruction NASCET criteria and technique was utilized during interpretation. Aortic arch: Arch shows no significant narrowing. Great vessel origins are widely patent . Right carotid: Moderate calcified plaque disease of the proximal right ICA with 40% stenosis proximally. Left carotid: Moderate calcified plaque disease with 50% proximal left ICA stenosis. Vertebrals: Left vertebral artery is dominant. No significant stenosis is present . IMPRESSION: Moderate bilateral ICA stenoses. Reviewed, Interpreted and Dictated by Jalen King MD Transcribed by Zahra Ontiveros Authenticated and [facility]
--- NOTE | 2024-04-29 14:23 | CT_ITS ---
FINAL REPORT CLINICAL HISTORY: R sided weakness, L sided numbness FINDINGS: CTA HEAD TECHNIQUE: Thin section axial CT with contrast with 3D MIP reconstruction This study was performed with techniques to keep radiation doses as low as reasonably achievable, (ALARA). Individualized dose reduction techniques using automated exposure control or adjustment of mA and/or kV according to the patient''s size were employed. FINDINGS: There is moderate calcified plaque disease of the cavernous ICAs. There is high-grade stenosis of the distal right MCA. There is mild stenosis of the distal left MCA. ACAs are widely patent. Basilar artery is widely patent. IMPRESSION: High-grade right MCA stenosis, likely chronic given old right MCA infarct. Remaining central intracranial vessels widely patent. This study was performed using automated techniques to achieve radiation exposure as low as reasonably achievable Reviewed, Interpreted and Dictated by Jalen King MD Transcribed by Zahra Ontiveros Authenticated and [facility]
--- NOTE | 2024-04-29 14:23 | CT_ITS ---
FINAL REPORT TECHNIQUE: Noncontrast exam This study was performed with techniques to keep radiation doses as low as reasonably achievable, (ALARA). Individualized dose reduction techniques using automated exposure control or adjustment of mA and/or kV according to the patient''s size were employed. CLINICAL HISTORY: R sided weakness, L sided numbness FINDINGS: There is an old right MCA infarct. Moderate cortical atrophy is seen. There is also an old left basal ganglier lacunar infarct. No abnormal density is seen. Ventricles are normal. There is no hemorrhage. No mass effect is seen. Bone windows show no evidence of fracture. IMPRESSION: Extensive chronic changes without acute findings. Reviewed, Interpreted and Dictated by Jalen King MD Transcribed by Zahra Ontiveros Authenticated and [facility]
--- NOTE | 2024-04-29 14:24 | XR_ITS ---
FINAL REPORT TECHNIQUE: Single view chest CLINICAL HISTORY: ams, weakness, FINDINGS: A single view of the chest was obtained. Patient is status post CABG. The heart and mediastinum are within normal limits. The lungs are clear. There is no pneumothorax. Osseous structures demonstrate old left rib fractures. IMPRESSION: No acute cardiopulmonary process. Reviewed, Interpreted and Dictated by Jalen King MD Transcribed by Zahra Ontiveros Authenticated and [facility]
[2024-04-29 14:37] LABS: Basophils # 0.1 K/mm3 (0-0.2); Basophils % 0.9 % (0.1-2.0); Eosinophils # 0.1 K/mm3 (0.0-0.4); Eosinophils % 2.1 % (0.1-12.0); Hematocrit 42.9 % (37.0-47.0); Hemoglobin 13.6 g/dL (12.2-16.2); Lymphocytes # 0.7 K/mm3 (0.7-4.5); Lymphocytes % 12.2 % (10-50); Mean Corpuscular HGB Conc 31.7 g/dL (31.8-35.4); Mean Corpuscular Hemoglobin 28.3 pg (27.0-31.2); Mean Corpuscular Volume 89.3 fl (81-99); Mean Platelet Volume 9.4 fl (7.4-10.4); Monocytes # 0.3 K/mm3 (0.1-1.0); Monocytes % 4.9 % (1.7-9.3); Neutrophils # 4.8 K/mm3 (1.8-7.8); Neutrophils % 79.9 % (37.0-80.0); Platelet Count 230 K/mm3 (142-424); Red Blood Count 4.81 M/mm3 (4.20-5.40); Red Cell Distribution Width 14.5 % (11.5-17.5); White Blood Count 6.1 K/mm3 (4.8-10.8)
[2024-04-29 14:39] LABS: VBG Base Excess 0.2 mmol/L (-2.4-2.3); VBG HCO3 25.6 mmol/L (23-30); VBG Oxygen Saturation 89.8 % (50-70); VBG PCO2 45.9 mmol/L (35-51); VBG PH 7.36 mmol/L (7.31-7.41); VBG PO2 61.8 mmol/L (28-40)
--- NOTE | 2024-04-29 14:39 | ECG_ITS ---
APPROVED REPORT Exam: Resting ECG HR:90 bpm ECG Measurements Heart Rate 90 AXES TN 154 P 65 QRSd 95 QRS 65 QT 351 T 155 QTc 398 Conclusion Sinus rhythm Lateral ischemia with T wave inversions and ST depressions in 1 and aVL, V5 V6 Electronically signed by : TATYANA CAIN, 04/29/2024 16:12:45
[2024-04-29 14:41] LABS: Lactate Venous 2.3 mmol/L (0.4-2.0)
[2024-04-29 14:42] LABS: Activated Partial Thrombo Time 24.8 seconds (22.8-30.6); Prothrombin Time 10.2 seconds (10.1-12.5)
[2024-04-29 14:55] LABS: Chloride 100 mmol/L (98-107)
[2024-04-29 14:56] LABS: Acetone, Serum (Rapid) None Detected (None Detect); Albumin Level 4.2 g/dl (3.5-5.0); Potassium 4.2 mmoL/L (3.5-5.1); Sodium 131 mmol/L (136-145)
[2024-04-29 14:58] LABS: Anion Gap 9.2 mEq/L (5-15); Blood Urea Nitrogen 14 mg/dl (7-17); Carbon Dioxide 26 mmol/L (22.0-30.0); Creatinine Clearance Estimated 50 mL/min (50-200); Estimated Glomerular Filt Rate 97 ml/min (>60); GFR (African American) 118 ML/MIN (>60)
[2024-04-29 14:59] LABS: Alanine Aminotransferase 18 U/L (12-78); Albumin/Globulin Ratio 1.3 (1.1-1.8); Alkaline Phosphatase 133 U/L (38-126); Aspartate Amino Transferase 26 U/L (14-36); Bilirubin,Total 0.7 mg/dl (0.2-1.3); Calcium 9.1 mg/dl (8.4-10.2); Globulin 3.2 g/dL (1.3-3.2); Magnesium 1.7 mg/dl (1.6-2.3); Total Protein,Serum 7.4 g/dl (6.3-8.2)
--- NOTE | 2024-04-29 15:03 | PC.NURSE ---
pt is resting in bed with family at bs no needs at this time and call light in reach
[2024-04-29 15:09] LABS: NT Pro Brain Natriuretic Pep. 660 pg/mL (0-450)
[2024-04-29 15:30] LABS: Microscopic, Urine URINE MICROSCOPIC (MICROSCOPIC)
[2024-04-29 15:30] LABS: Thyroid Stimulating Hormone 2.61 uIU/mL (0.465-4.68)
[2024-04-29 15:37] LABS: Troponin I < 0.01 ng/ml (0.00-0.034)
[2024-04-29 15:38] LABS: Glucose 485 mg/dl (74-100)
--- NOTE | 2024-04-29 15:39 | PC.NURSE ---
glucose 485, MD aware
[2024-04-29 15:45] LABS: Appearance,Urine CLEAR (Clear); Bilirubin,Urine Negative (Negative); Blood, Urine TRACE-I (Negative); Color,Urine YELLOW (Yellow); Glucose,Urine (UA) 3+ (Negative); Ketones,Urine Negative (Negative); Leukocyte Esterase,Urine Negative (Negative); Nitrate,Urine Negative (Negative); PH,Urine 6.5 (5.0-8.5); Protein,Urine Negative (Negative); Specific Gravity, Urine 1.015 (1.005-1.030); Urobilinogen,Urine 0.2 EU/dl (0.2)
[2024-04-29] MEDS: IOPAMIDOL-370 (76%);100ML BOTTLE 80 ML IV (16:02)
[2024-04-29] MEDS: SODIUM CHLORIDE 0.9% 10ML SYR (RAD ONLY) 10 ML IV (16:02)
[2024-04-29] MEDS: 0.9 % SODIUM CHLORIDE 50 ML VIAL IV (16:02)
--- NOTE | 2024-04-29 16:02 | ED_ITS ---
Discharge Plan Disposition Chief Complaint: Neuro Symptoms/Deficit Prescriptions Prescriptions: No Action Ozempic 0.25 mg or 0.5 mg (2 mg/3 mL) pen injector 0.25 mg SQ WEEKLY Qty: 1.84 2RF Rx Instructions: for 4 weeks fenofibric acid (choline) 135 mg capsule,delayed release(DR/EC) 135 mg PO DAILY Qty: 90 3RF isosorbide mononitrate 60 mg tablet extended release 24 hr 60 mg PO DAILY Qty: 90 3RF cetirizine 10 mg tablet 10 mg PO DAILY PRN (Reason: allergies) aspirin 81 mg tablet 81 mg PO DAILY Jardiance 25 mg tablet 25 mg PO DAILY Qty: 90 0RF atorvastatin 40 mg tablet 40 mg PO DAILY Qty: 90 3RF carvedilol 12.5 mg tablet See Rx Instructions .ROUTE .COMPLEX Qty: 180 4RF Dose Instruction: TAKE 1 TABLET BY MOUTH TWICE DAILY - MUST ADMINISTER WITH A MEAL/FOOD Rx Instructions: TAKE 1 TABLET BY MOUTH TWICE DAILY - MUST ADMINISTER WITH A MEAL/FOOD pantoprazole 40 mg tablet,delayed release (DR/EC) See Rx Instructions .ROUTE .COMPLEX Qty: 90 3RF Dose Instruction: TAKE 1 TABLET BY MOUTH ONCE DAILY Rx Instructions: TAKE 1 TABLET BY MOUTH ONCE DAILY glimepiride 4 mg tablet See Rx Instructions .ROUTE .COMPLEX Qty: 180 0RF Dose Instruction: TAKE 2 TABLETS BY MOUTH ONCE DAILY FOR DIABETES Rx Instructions: TAKE 2 TABLETS BY MOUTH ONCE DAILY FOR DIABETES nitroglycerin 0.4 mg tablet, sublingual See Rx Instructions .ROUTE .COMPLEX Qty: 25 2RF Dose Instruction: PLACE 1 TABLET UNDER TONGUE EVERY 5 MINUTES NEEDED FOR CHEST PAIN; DO NOT EXCEED 3 DOSES PER EPISODE Rx Instructions: PLACE 1 TABLET UNDER TONGUE EVERY 5 MINUTES NEEDED FOR CHEST PAIN; DO NOT EXCEED 3 DOSES PER EPISODE metformin 500 mg tablet extended release 24 hr See Rx Instructions .ROUTE .COMPLEX Qty: 120 1RF Dose Instruction: TAKE 2 TABLETS BY MOUTH TWICE A DAY FOR DIABETES Rx Instructions: TAKE 2 TABLETS BY MOUTH TWICE A DAY FOR DIABETES valsartan-hydrochlorothiazide 320-25 mg tablet See Rx Instructions .ROUTE .COMPLEX Qty: 90 3RF Dose Instruction: TAKE 1 TABLET BY MOUTH ONCE DAILY Rx Instructions: TAKE 1 TABLET BY MOUTH ONCE DAILY Referrals Follow up/Referrals: Patricia Le APRN [Primary Care Provider] - See instructions Clinical Impressions Clinical Impression: Acute confusion, Transient neurologic deficit Print Language Print Language: Welsh Discharge ED Provider: Aaron Bolanos General Adult HPI <Aaron Bolanos MD - Last Filed: 04/29/24 16:07> General Chief complaint: Neuro Symptoms/Deficit Stated complaint: slurring speech, unsteady, scooting 1 foot Time Seen by Provider: 04/29/24 14:13 Mode of Arrival: Wheelchair Source of Information: Patient Limitations: No Limitations Description of Symptoms (Recalled from ER Triage Doc. by RN): c/o dizziness that started around 0830, pt states that when she got out of the shower around 0915 she was dizzy and stumbled to the right side. Pt states that she feels some difference in feeling in her face and bilateral legs. History of Present Illness HPI narrative: Please note that above description of symptoms, in this electronic medical record under categorization of recalled from ER triage doctor by RN are reflective of an initial nursing assessment, however, is not reflective of my full history and physical exam that was personally taken and clarified. Consequentially, this preceding description of symptoms, which may include the patient's categorized chief complaint in the EMR, do not reflect my personal clinical impression, and the ultimate description of history of present illness and patient stated complaints should be deferred to this section of the note. Unless stated otherwise or congruent with this section of the note, additional signs, symptoms, or incongruence should be interpreted as inaccurate with my clinical impression. Related Data Home Medications ?Medication ?Instructions ?Recorded ?Confirmed aspirin 81 mg tablet 81 mg PO DAILY Heart disease 05/17/22 03/12/24 cetirizine 10 mg tablet 10 mg PO DAILY PRN allergies 05/17/22 03/12/24 Previous Rx's ?Medication ?Instructions ?Recorded carvedilol 12.5 mg tablet See Rx Instructions .Route 04/25/23 .COMPLEX #180 tabs pantoprazole 40 mg tablet,delayed See Rx Instructions .Route 09/04/23 release .COMPLEX #90 tabs atorvastatin 40 mg tablet 40 mg PO DAILY Cholesterol #90 tabs 12/06/23 empagliflozin 25 mg tablet 25 mg PO DAILY Diabetes #90 tabs 12/06/23 (Jardiance) fenofibric acid (choline) 135 mg 135 mg PO DAILY Cholesterol #90 03/06/24 capsule,delayed release caps semaglutide 0.25 mg or 0.5 mg (2 0.25 mg (0.368 mL) SQ WEEKLY dm 03/06/24 mg/3 mL) subcutaneous pen injector #1.84 mL (Ozempic) glimepiride 4 mg tablet See Rx Instructions .Route 03/12/24 .COMPLEX #180 tabs isosorbide mononitrate 60 mg 60 mg PO DAILY #90 tabs 03/12/24 tablet,extended release 24 hr nitroglycerin 0.4 mg sublingual See Rx Instructions .Route 03/18/24 tablet .COMPLEX #25 ea metformin 500 mg tablet,extended See Rx Instructions .Route 04/22/24 release 24 hr .COMPLEX #120 tabs valsartan 320 See Rx Instructions .Route 04/22/24 mg-hydrochlorothiazide 25 mg tablet .COMPLEX #90 tabs Allergies Allergy/AdvReac Type Severity Reaction Status Date / Time No Known Allergies Allergy Verified 03/12/24 09:42 [facility] <Aaron Bolanos MD - Last Filed: 04/29/24 16:07> [facility] Disclaimer: The information contained in this section may have been updated after the patient was seen, as this information can be updated by other users. Medical History Diastolic dysfunction Dyspnea Hyperlipidemia Abnormal result of cardiovascular function study Abnormal electrocardiogram [ECG] [EKG] Typical angina Menopause Skin cancer small area on forehead Diabetes Hypertension Surgical History History of hysterectomy had tubes tied Hx of CABG Family History Other Family history of diabetes mellitus type II No significant family history Social History Smoking Status: Never smoker alcohol intake: never current occupational status: other Travel in the last 8 weeks: None housing: house Have you lived/traveled outside [place] in past 30 days?: No Contact w/someone who lives/traveled outside US past 30 days?: No Exposure to someone with infectious disease in past 14 days?: No Do you have a fever (greater than 100.4 F or 38 C)?: No Have you tested positive for COVID-19: No Exposed to someone with COVID-19 in past 14 days?: No Do you have a sore throat?: No Do you have a cough?: No Do you have any weakness?: No Do you have any diarrhea?: No Are you experiencing any unusual bleeding?: No Do you have any muscle aches/pain?: No Do you have any abdominal pain?: No Are you experiencing loss of taste or smell?: No Other Medical History Have you received the Flu Vaccine for this season: No Have you received the Pneumonia Vaccine: Yes <Aaron Bolanos MD - Last Filed: 04/29/24 16:07> ROS Obtained: Yes All systems reviewed & no additional complaints except as documented Physical Exam <Aaron Bolanos MD - Last Filed: 04/29/24 16:07> General General appearance: alert Comment: Smells of urine Head Head exam: atraumatic and normocephalic Eye Eye exam: Present normal appearance, PERRL and EOMI Neck Neck exam: Present normal inspection, full ROM and trachea midline Respiratory Respiratory exam: Present normal lung sounds bilaterally; Absent respiratory distress, wheezes, stridor, accessory muscle use or prolonged expiratory phase Cardiovascular Cardiovascular exam: Present regular rate, normal rhythm and other (Pulses equal symmetric in upper and lower extremities) Abdominal Exam Abdominal exam: Present soft; Absent distention, tenderness or pulsatile mass Extremities Exam Extremities exam: Absent edema Neurological Exam Neurological exam: Present alert, oriented X3, CN II-XII intact, motor sensory deficit and other (NIHSS 2 for V2 distribution sensory deficit on the left and L4/L5 numbness on the right lower extremity as compared to the left. Cranial nerve, cerebellar, motor and sensory exams otherwise intact.) Skin Skin exam: Present warm and dry; Absent diaphoresis or erythema Medical Decision Making <Aaron Bolanos MD - Last Filed: 04/29/24 16:07> Medical Records Medical records reviewed: Yes I reviewed the patient's medical records. Screening: Per USPSTF and CDC recommendations, given the prevalence of disease in our region, it is our hospital?s policy to screen for HIV and viral Hepatitis for all patients aged 18 and over and those with ongoing risk factors. Gunner Inquiry Pt receiving controlled substance: No Gunner was queried for this patient: No Vital Signs: 04/29/24 13:53 04/29/24 14:30 04/29/24 15:00 Temperature 98.5 F Temperature Source Oral Pulse Rate 95 H 86 Pulse Rate [Left Radial] 93 H Respiratory Rate 18 Blood Pressure 177/114 H 195/74 H Blood Pressure [Right Arm] 185/109 H Blood Pressure Mean [Right Arm] 134 02 Sat by Pulse Oximetry 95 93 L 94 L Oxygen Delivery Method Room Air Room Air Room Air Lab Data Lab Results 04/29/24 14:11: WBC 6.1, RBC 4.81, Hgb 13.6, Hct 42.9, MCV 89.3, MCH 28.3, MCHC 31.7 L, RDW 14.5, Plt Count 230, MPV 9.4, Neut % (Auto) 79.9, Lymph % (Auto) 12.2, [place] % (Auto) 4.9, Eos % (Auto) 2.1, Baso % (Auto) 0.9, Neut # (Auto) 4.8, Lymph # (Auto) 0.7, [place] # (Auto) 0.3, Eos # (Auto) 0.1, Baso # (Auto) 0.1, PT 10.2, INR 0.90, APTT 24.8, Sodium 131 L, Potassium 4.2, Chloride 100, Carbon Dioxide 26, Anion Gap 9.2, BUN 14, Creatinine 0.60, Estimated Creat Clear 50, Estimated GFR 97, Est GFR ( Amer) 118, Glucose 485 H*, Calcium 9.1, Magnesium 1.7, Total Bilirubin 0.7, AST 26, ALT 18, Alkaline Phosphatase 133 H, Troponin I < 0.01, NT-Pro-B Natriuret Pep 660 H, Total Protein 7.4, Albumin 4.2, Globulin 3.2, Albumin/Globulin Ratio 1.3, TSH 2.61, Thyroxine (T4) 12.0 H, Acetone Level None detected 04/29/24 14:32: VBG pH 7.36, VBG pCO2 45.9, VBG pO2 61.8 H, VBG HCO3 25.6, VBG Total CO2 27.0, VBG O2 Saturation 89.8 H, VBG Base Excess 0.2, VBG Lactic Acid 2.3 H 04/29/24 15:27: Urine Color Yellow, Urine Appearance Clear, Urine pH 6.5, Ur Specific [place] 1.015, Urine Protein Negative, Urine Glucose (UA) 3+, Urine Ketones Negative, Urine Blood Trace-i, Urine Nitrate Negative, Urine Bilirubin Negative, Urine Urobilinogen 0.2, Ur Leukocyte Esterase Negative, Urine RBC Occasional, Urine WBC 3-5, Ur Squamous Epith Cells Occasional, Urine Bacteria 1+ 04/29/24 14:11 04/29/24 14:11 Orders (Tests/Meds): ED MEDICATIONS Discontinued Medications Generic Name Dose Route Start Last Admin Trade Name Freq PRN Reason Stop Dose Admin Lactated Ringer's 1,000 mls @ 999 mls/hr 04/29/24 15:39 04/29/24 16:23 Lactated Ringer's 1000 Ml Bag IV 04/29/24 16:39 999 mls/hr .Q1H1M ONE Administration Iopamidol 80 ml 04/29/24 16:00 04/29/24 16:02 Iopamidol-370 (76%);100ml Bottle IV 04/29/24 16:01 80 ml ONCE ONE Administration Sodium Chloride 50 ml 04/29/24 16:00 04/29/24 16:02 0.9 % Sodium Chloride 50 Ml Vial IV 04/29/24 16:01 50 ml ONCE ONE Administration Sodium Chloride 10 ml 04/29/24 16:00 04/29/24 16:02 Sodium Chloride 0.9% 10ml Syr (Rad Only) IV 04/29/24 16:01 10 ml ONCE ONE Administration ORDERS Category Date Time Status CT angio head Stat Cat Scan 04/29/24 14:[address] angio neck Stat Cat Scan 04/29/24 14:[address] head/brain wo con Stat Cat Scan 04/29/24 14:23 Completed XR chest portable Stat Exams 04/29/24 14:24 Completed Acetone, Serum (Rapid) Stat Lab 04/29/24 14:11 Completed Complete Blood Count Auto Diff Stat Lab 04/29/24 14:11 Completed Comprehensive Metabolic Panel Stat Lab 04/29/24 14:11 Completed HIV (1&2) Antibody Rapid Stat Lab 04/29/24 14:11 Received Hep C Ab with Reflex to RNA Stat Lab 04/29/24 14:11 Received Magnesium Stat Lab 04/29/24 14:11 Completed NT Pro Brain Natriuretic Pep. Stat Lab 04/29/24 14:11 Completed PT INR [Prothrombin Time INR] Stat Lab 04/29/24 14:11 Completed PTT [Activated Partial Thrombo Time] Stat Lab 04/29/24 14:11 Completed T4 (Thyroxine) Stat Lab 04/29/24 14:11 Completed TSH [Thyroid Stimulating Hormone] Stat Lab 04/29/24 14:11 Completed Troponin I Q3H Lab 04/29/24 17:25 Received Troponin I Q3H Lab 04/29/24 20:30 Ordered Troponin I Stat Lab 04/29/24 14:11 Completed Urinalysis and Microscopic Stat Lab 04/29/24 15:27 Completed Blood Culture Stat Micro 04/29/24 14:56 Received Venous Blood Gas Stat RT 04/29/24 14:32 Completed Medical Decision Narrative: This is a 78-year-old female history of hypertension, hyperlipidemia, diabetes, CAD presenting with concern for confusion. Patient was last normal and at her baseline yesterday, 04/28 in the p.m. before bed. She does state that she woke up today and felt okay, but yesterday, she felt intermittently confused and off. Today, patient states she felt a little better, but around 9 AM, she states that she was having confusion, difficulty finding words, then states that she felt she was weak and falling toward her right side. Did not actually fall, did not sustain any injury, just felt weak on that side. Brought in for further evaluation. Daughter corroborates story. Patient states that she has not taken all of her medications today and actually ate a bunch of sweets before she came in. NIHSS 2 for V2 distribution sensory deficit on the left and L4/L5 numbness on the right lower extremity as compared to the left. Cranial nerve, cerebellar, motor and sensory exams otherwise intact. Patient placed on continuous surveillance monitor and pulse oximetry with BP 185/109, pulse rate 93, oxygen saturation 95%. Patient's glucose over 450, 1 L of LR was ordered for dilution. Labs ordered, imaging also ordered. Patient's EKG with T wave inversions with mild ST depressions in high lateral leads, but no reciprocal elevations. Nonactionable CBC. VBG with mildly elevated lactic acid at 2.3. Chemistry with pseudohyponatremia 131 as well as glucose elevated 485. Troponin undetectable, BNP 660. Patient's urinalysis with glucose, no evidence of infection. No acetone. Anion gap normal at 9.2. CT head was independently interpreted and patient has old strokes on the right side, no acute intracranial hemorrhage. CTA is pending at time of handoff to oncoming physician as well as disposition. Pocket Grinder Operator disclaimer Much of this encounter note is an electronic water resources program director spoken language to printed text. Electronic water resources program director of the spoken language may permit errors. Although I have reviewed the note, some errors may still exist. <Rodrick Szymanski MD - Last Filed: 04/29/24 17:59> Vital Signs: 04/29/24 13:53 04/29/24 14:30 04/29/24 15:00 Temperature 98.5 F Temperature Source Oral Pulse Rate 95 H 86 Pulse Rate [Left Radial] 93 H Respiratory Rate 18 Blood Pressure 177/114 H 195/74 H Blood Pressure [Right Arm] 185/109 H Blood Pressure Mean [Right Arm] 134 02 Sat by Pulse Oximetry 95 93 L 94 L Oxygen Delivery Method Room Air Room Air Room Air Lab Data Lab Results 04/29/24 14:11: WBC 6.1, RBC 4.81, Hgb 13.6, Hct 42.9, MCV 89.3, MCH 28.3, MCHC 31.7 L, RDW 14.5, Plt Count 230, MPV 9.4, Neut % (Auto) 79.9, Lymph % (Auto) 12.2, [place] % (Auto) 4.9, Eos % (Auto) 2.1, Baso % (Auto) 0.9, Neut # (Auto) 4.8, Lymph # (Auto) 0.7, [place] # (Auto) 0.3, Eos # (Auto) 0.1, Baso # (Auto) 0.1, PT 10.2, INR 0.90, APTT 24.8, Sodium 131 L, Potassium 4.2, Chloride 100, Carbon Dioxide 26, Anion Gap 9.2, BUN 14, Creatinine 0.60, Estimated Creat Clear 50, Estimated GFR 97, Est GFR ( Amer) 118, Glucose 485 H*, Calcium 9.1, Magnesium 1.7, Total Bilirubin 0.7, AST 26, ALT 18, Alkaline Phosphatase 133 H, Troponin I < 0.01, NT-Pro-B Natriuret Pep 660 H, Total Protein 7.4, Albumin 4.2, Globulin 3.2, Albumin/Globulin Ratio 1.3, TSH 2.61, Thyroxine (T4) 12.0 H, Acetone Level None detected 04/29/24 14:32: VBG pH 7.36, VBG pCO2 45.9, VBG pO2 61.8 H, VBG HCO3 25.6, VBG Total CO2 27.0, VBG O2 Saturation 89.8 H, VBG Base Excess 0.2, VBG Lactic Acid 2.3 H 04/29/24 15:27: Urine Color Yellow, Urine Appearance Clear, Urine pH 6.5, Ur Specific [place] 1.015, Urine Protein Negative, Urine Glucose (UA) 3+, Urine Ketones Negative, Urine Blood Trace-i, Urine Nitrate Negative, Urine Bilirubin Negative, Urine Urobilinogen 0.2, Ur Leukocyte Esterase Negative, Urine RBC Occasional, Urine WBC 3-5, Ur Squamous Epith Cells Occasional, Urine Bacteria 1+ Orders (Tests/Meds): ED MEDICATIONS Discontinued Medications Generic Name Dose Route Start Last Admin Trade Name Freq PRN Reason Stop Dose Admin Lactated Ringer's 1,000 mls @ 999 mls/hr 04/29/24 15:39 04/29/24 16:23 Lactated Ringer's 1000 Ml Bag IV 04/29/24 16:39 999 mls/hr .Q1H1M ONE Administration Iopamidol 80 ml 04/29/24 16:00 04/29/24 16:02 Iopamidol-370 (76%);100ml Bottle IV 04/29/24 16:01 80 ml ONCE ONE Administration Sodium Chloride 50 ml 04/29/24 16:00 04/29/24 16:02 0.9 % Sodium Chloride 50 Ml Vial IV 04/29/24 16:01 50 ml ONCE ONE Administration Sodium Chloride 10 ml 04/29/24 16:00 04/29/24 16:02 Sodium Chloride 0.9% 10ml Syr (Rad Only) IV 04/29/24 16:01 10 ml ONCE ONE Administration ORDERS Category Date Time Status CT angio head Stat Cat Scan 04/29/24 14:[address] angio neck Stat Cat Scan 04/29/24 14:[address] head/brain wo con Stat Cat Scan 04/29/24 14:23 Completed XR chest portable Stat Exams 04/29/24 14:24 Completed Acetone, Serum (Rapid) Stat Lab 04/29/24 14:11 Completed Complete Blood Count Auto Diff Stat Lab 04/29/24 14:11 Completed Comprehensive Metabolic Panel Stat Lab 04/29/24 14:11 Completed HIV (1&2) Antibody Rapid Stat Lab 04/29/24 14:11 Received Hep C Ab with Reflex to RNA Stat Lab 04/29/24 14:11 Received Magnesium Stat Lab 04/29/24 14:11 Completed NT Pro Brain Natriuretic Pep. Stat Lab 04/29/24 14:11 Completed PT INR [Prothrombin Time INR] Stat Lab 04/29/24 14:11 Completed PTT [Activated Partial Thrombo Time] Stat Lab 04/29/24 14:11 Completed T4 (Thyroxine) Stat Lab 04/29/24 14:11 Completed TSH [Thyroid Stimulating Hormone] Stat Lab 04/29/24 14:11 Completed Troponin I Q3H Lab 04/29/24 17:25 Received Troponin I Q3H Lab 04/29/24 20:30 Ordered Troponin I Stat Lab 04/29/24 14:11 Completed Urinalysis and Microscopic Stat Lab 04/29/24 15:27 Completed Blood Culture Stat Micro 04/29/24 14:56 Received Venous Blood Gas Stat RT 04/29/24 14:32 Completed ECG Data Tracing #1: Independently interpreted by me rate is 90, rhythm is regular, axis is normal, no ST elevation in anatomical contiguous leads, isolated PVC. Medical Decision Narrative: This is a 78-year-old female history of hypertension, hyperlipidemia, diabetes, CAD presenting with concern for confusion. Patient was last normal and at her baseline yesterday, 12/15 in the p.m. before bed. She does state that she woke up today and felt okay, but yesterday, she felt intermittently confused and off. Today, patient states she felt a little better, but around 9 AM, she states that she was having confusion, difficulty finding words, then states that she felt she was weak and falling toward her right side. Did not actually fall, did not sustain any injury, just felt weak on that side. Brought in for further evaluation. Daughter corroborates story. Patient states that she has not taken all of her medications today and actually ate a bunch of sweets before she came in. NIHSS 2 for V2 distribution sensory deficit on the left and L4/L5 numbness on the right lower extremity as compared to the left. Cranial nerve, cerebellar, motor and sensory exams otherwise intact. Patient placed on continuous surveillance monitor and pulse oximetry with BP 185/109, pulse rate 93, oxygen saturation 95%. Patient's glucose over 450, 1 L of LR was ordered for dilution. Labs ordered, imaging also ordered. Patient's EKG with T wave inversions with mild ST depressions in high lateral leads, but no reciprocal elevations. Nonactionable CBC. VBG with mildly elevated lactic acid at 2.3. Chemistry with pseudohyponatremia 131 as well as glucose elevated 485. Troponin undetectable, BNP 660. Patient's urinalysis with glucose, no evidence of infection. No acetone. Anion gap normal at 9.2. CT head was independently interpreted and patient has old strokes on the right side, no acute intracranial hemorrhage. CTA is pending at time of handoff to oncoming physician as well as disposition. Pocket Grinder Operator disclaimer Much of this encounter note is an electronic water resources program director spoken language to printed text. Electronic water resources program director of the spoken language may permit errors. Although I have reviewed the note, some errors may still exist. Rodrick Szymanski: Upon assumption of care patient was hemodynamically stable. Workup reviewed by me, hematologic labs are nonactionable, no leukocytosis or significant anemia, there is compensated acid-base status without significant acute derangement. Glucose is 485 and is being resuscitated with crystalloid prior to my assumption of care there is no evidence of DKA, mild pseudohyponatremia, urinalysis interpreted by me and is equivocal for infection there is trace leukocyturia and bacteria however nitrate negative. Intracranial imaging shows high-grade right MCA stenosis likely chronic given an old R MCA infarct with remaining intracranial vessels widely patent, neck CTA moderate bilateral ICA stenosis. Patient is on aspirin and a statin as well as cardiac drugs already, does not take insulin however is on metformin and empagliflozin. Upon repeat evaluation patient has uptrending systolic blood pressures as high as 217 on multiple checks. Patient states that she takes her blood pressure medication in the morning and was compliant today. Given that patient likely has TIA given that I reevaluated her and she had resolving symptoms in the setting of hyperglycemia and unmanaged blood pressure patient will need her antihyperglycemic regimen tightened over the next few days with likely resumption of insulin, she also will need her blood pressure taken down in a controlled fashion with a next 24 to 48 hours. Given that CVA is still on the differential permissive hypertension in the setting ischemic stroke will be allowed up to systolic 220 so emergent lowering will be deferred at this time. The case was discussed with hospital medicine regarding management they will admit the patient their service for continued evaluation at this time Critical Care <Aaron Bolanos MD - Last Filed: 04/29/24 16:07> Critical Care Time Critical Care Time: No
[2024-04-29] MEDS: LACTATED RINGERS 1000ML 1,000 ML 999 ML IV (16:23)
[2024-04-29 16:25] LABS: Bacteria,Urine 1+ /lpf; RBC,Urine Occasional #/hpf (0-3); Squamous Epithelial Cell,Urine Occasional #/hpf (0-5)
--- NOTE | 2024-04-29 17:09 | PC.NURSE ---
ROUNDED ON THIS PATIENT AT THIS TIME. PT GIVEN WARM BLANKETS AND SCOOTED UP IN THE BED. NO OTHER NEEDS REPORTED AT THIS TIME.
[2024-04-29 18:16] LABS: Troponin I < 0.01 ng/ml (0.00-0.034)
[2024-04-29 18:42] LABS: Reflex Lactic Add Lactic Reflex
[2024-04-29 19:05] LABS: Lactic Acid Follow Up (RFLX 1) 1.6 mmol/L (0.7-2.1)
--- NOTE | 2024-04-29 20:39 | PC.NURSE ---
Patient arrived to floor via wheelchair from ED at 20:37.
[2024-04-29 21:43] LABS: POC Glucose,Bedside 350 (70-110)
[2024-04-29] MEDS: humaLOG 100 UNITS/ML 10ML VIAL (SSI) SUBCUT (21:45)
[2024-04-29] MEDS: CARVEDILOL 12.5MG TABLET 25 MG PO (21:45)
[2024-04-29] MEDS: INSULIN GLARGINE 100 UNITS/ML 3ML FLEXPEN 10 UNIT SUBCUT (21:45)
[2024-04-29 22:13] LABS: Troponin I < 0.01 ng/ml (0.00-0.034)
--- NOTE | 2024-04-29 22:41 | XR_ITS ---
PROCEDURE INFORMATION: Exam: XR Right Hand Exam date and time: 04/29/2024 10:57 PM Age: 78 years old Clinical indication: Pain; Finger(s); Right; Additional info: Right 5th digit of hand slammed in car door04/28 TECHNIQUE: Imaging protocol: Radiologic exam of the right hand. Views: 1 or 2 views. COMPARISON: No relevant prior studies available. FINDINGS: Bones/joints: There is a comminuted fracture of the 5th distal phalangeal tuft. There is no significant displacement of the fracture fragments. There is mild narrowing of the interphalangeal joints. Soft tissues: Normal. Vasculature: There is arterial calcification. IMPRESSION: Nondisplaced comminuted fracture of the 5th distal phalanx tuft.
--- NOTE | 2024-04-29 22:47 | P.HP_ITS ---
History of Present Illness *Admission Date: 04/29/24 *Reason for visit:: Right sided leaning with ataxia, lightheadedness, vertigo 9 AM today *History of present illness: 78-year-old with past medical history of diabetes on metformin, hypertension, CAD, hyperlipidemia, GERD, diastolic heart failure, status post CABG. patient lives in the [facility] living facilities across from hospital. Patient in extremely good health normally, and states she drives to [employer] most mornings to get breakfast. Patient presents to hospital after experiencing right sided leaning issues with ataxia, vertigo, lightheadedness around 9 AM this morning. Patient had just left the shower and experienced performance in symptoms. Patient reports being able to drive to [employer] earlier that morning without incident. Patient able to attend [employer] later that day, but did experience some vomiting at [employer]. Denies previous issues with ataxia/right sided leaning issues. Also denies nausea, fevers, sick contacts, recent travel, diarrhea, constipation, abdominal pain, chest discomfort. States she suffers from chronic chills. Troponin 0.01 x 2 in emergency room, MAG 1.7, NA 131, CL 100. CTA head/neck shows signs of high- grade right MCA stenosis and bilateral ICA stenosis. CT brain done in emergency room shows old right MCA infarct. Patient's daughter present with patient emergency room and collaborates the story. Patient also admits to slamming right fifth digit and cardio 04/28 during [employer]'s trip. Right fifth digit appears discolored, but has normal range of motion during my examination. [facility] Disclaimer: The information contained in this section may have been updated after the patient was seen, as this information can be updated by other users. Medical History Diastolic dysfunction Dyspnea Hyperlipidemia Abnormal result of cardiovascular function study Abnormal electrocardiogram [ECG] [EKG] Typical angina Menopause Skin cancer small area on forehead Diabetes Hypertension Surgical History History of hysterectomy had tubes tied Hx of CABG Family History (Updated 04/29/24 @ 22:10 by Deirdre Lund RN) Other Cancer Family history of diabetes mellitus type II No significant family history Social History (Updated 12/16/24 @ 22:10 by Deirdre Lund RN) Smoking Status: Never smoker alcohol intake: never current occupational status: other Travel in the last 8 weeks: None housing: house Have you lived/traveled outside [place] in past 30 days?: No Contact w/someone who lives/traveled outside US past 30 days?: No Exposure to someone with infectious disease in past 14 days?: No Do you have a fever (greater than 100.4 F or 38 C)?: No Have you tested positive for COVID-19: No Exposed to someone with COVID-19 in past 14 days?: No Do you have a sore throat?: No Do you have a cough?: No Do you have any weakness?: No Do you have any diarrhea?: No Are you experiencing any unusual bleeding?: No Do you have any muscle aches/pain?: No Do you have any abdominal pain?: No Are you experiencing loss of taste or smell?: No Other Medical History Have you received the Flu Vaccine for this season: Yes Have you received the Pneumonia Vaccine: No Meds Home Medications and Allergies Home Medications ?Medication ?Instructions ?Recorded ?Confirmed ?Type aspirin 81 mg tablet 81 mg PO DAILY Heart disease 05/17/22 04/29/24 History cetirizine 10 mg tablet 10 mg PO DAILY PRN allergies 05/17/22 03/12/24 History carvedilol 12.5 mg tablet See Rx Instructions .Route 04/25/23 04/29/24 Rx .COMPLEX #180 tabs pantoprazole 40 mg tablet,delayed See Rx Instructions .Route 09/04/23 03/12/24 Rx release .COMPLEX #90 tabs atorvastatin 40 mg tablet 40 mg PO DAILY Cholesterol #90 tabs 12/06/23 04/29/24 Rx empagliflozin 25 mg tablet 25 mg PO DAILY Diabetes #90 tabs 12/06/23 04/29/24 Rx (Jardiance) fenofibric acid (choline) 135 mg 135 mg PO DAILY Cholesterol #90 03/06/24 04/29/24 Rx capsule,delayed release caps semaglutide 0.25 mg or 0.5 mg (2 0.25 mg (0.368 mL) SQ WEEKLY dm 03/06/24 04/29/24 Rx mg/3 mL) subcutaneous pen injector #1.84 mL (Ozempic) glimepiride 4 mg tablet See Rx Instructions .Route 03/12/24 04/29/24 Rx .COMPLEX #180 tabs isosorbide mononitrate 60 mg 60 mg PO DAILY #90 tabs 03/12/24 04/29/24 Rx tablet,extended release 24 hr nitroglycerin 0.4 mg sublingual See Rx Instructions .Route 03/18/24 04/29/24 Rx tablet .COMPLEX #25 ea metformin 500 mg tablet,extended See Rx Instructions .Route 04/22/24 04/29/24 Rx release 24 hr .COMPLEX #120 tabs valsartan 320 See Rx Instructions .Route 04/22/24 Rx mg-hydrochlorothiazide 25 mg tablet .COMPLEX #90 tabs New Prescriptions to Start Prescriptions: Allergies Allergy/AdvReac Type Severity Reaction Status Date / Time No Known Allergies Allergy Verified 03/12/24 09:42 Exam Data for Last 24 hours Vital signs and Labs for Last 24 Hours: Temp Pulse Resp BP Pulse Ox O2 Del Method 98.1 F 94 H 18 192/89 H 95 Room Air 04/29/24 21:35 04/29/24 21:35 04/29/24 21:35 04/29/24 21:35 04/29/24 21:35 04/29/24 21:35 Laboratory Results - last 24 hr 04/29/24 14:11: WBC 6.1, RBC 4.81, Hgb 13.6, Hct 42.9, MCV 89.3, MCH 28.3, MCHC 31.7 L, RDW 14.5, Plt Count 230, MPV 9.4, Neut % (Auto) 79.9, Lymph % (Auto) 12.2, [place] % (Auto) 4.9, Eos % (Auto) 2.1, Baso % (Auto) 0.9, Neut # (Auto) 4.8, Lymph # (Auto) 0.7, [place] # (Auto) 0.3, Eos # (Auto) 0.1, Baso # (Auto) 0.1, PT 10.2, INR 0.90, APTT 24.8, Sodium 131 L, Potassium 4.2, Chloride 100, Carbon Dioxide 26, Anion Gap 9.2, BUN 14, Creatinine 0.60, Estimated Creat Clear 50, Estimated GFR 97, Est GFR ( Amer) 118, Glucose 485 H*, Calcium 9.1, Magnesium 1.7, Total Bilirubin 0.7, AST 26, ALT 18, Alkaline Phosphatase 133 H, Troponin I < 0.01, NT-Pro-B Natriuret Pep 660 H, Total Protein 7.4, Albumin 4.2, Globulin 3.2, Albumin/Globulin Ratio 1.3, TSH 2.61, Thyroxine (T4) 12.0 H, A cetone Level None detected 04/29/24 14:32: VBG pH 7.36, VBG pCO2 45.9, VBG pO2 61.8 H, VBG HCO3 25.6, VBG Total CO2 27.0, VBG O2 Saturation 89.8 H, VBG Base Excess 0.2, VBG Lactic Acid 2.3 H 04/29/24 15:27: Urine Color Yellow, Urine Appearance Clear, Urine pH 6.5, Ur Specific [place] 1.015, Urine Protein Negative, Urine Glucose (UA) 3+, Urine Ketones Negative, Urine Blood Trace-i, Urine Nitrate Negative, Urine Bilirubin Negative, Urine Urobilinogen 0.2, Ur Leukocyte Esterase Negative, Urine RBC Occasional, Urine WBC 3-5, Ur Squamous Epith Cells Occasional, Urine Bacteria 1+ 04/29/24 17:25: Troponin I < 0.01 04/29/24 18:48: Lactate 1.6 04/29/24 21:20: Troponin I < 0.01 04/29/24 21:22: POC Glucose 350 H* I & O for Last 24 hours: Intake & Output 04/26/24 04/27/24 04/28/24 04/29/24 23:59 23:59 23:59 23:59 Intake Total 120 / 120 Balance 120 / 120 Weight 68.855 kg Constitutional Constitutional: no acute distress *Routine HEENT Exam Head: Present normocephalic Eye: Present EOMI ENT: Present mucous membranes moist *Routine Neck Exam Neck: Present supple and full ROM *Routine Respiratory Exam Respiratory: Present CTA bilaterally and normal respiratory effort *Routine Cardiovascular Exam Cardiovascular: Present RRR, Normal S1 and Normal S2 *Routine Abdominal Exam Abdominal: Present soft and normoactive bowel sounds *Routine Rectal Exam Rectal:: deferred *Routine Genitalia Exam Genitalia:: deferred *Routine Extremities Exam Extremities: Present full ROM Comments: Right fifth digit discolored, purplish reddish, but with normal range of motion. Slightly tender to palpation at distal phalanx. *Routine Skin Exam Skin: Present intact and dry *Routine Neurological Exam Neurological: Present alert and oriented X3 Assessment and Plan *Assessment and plan (1) Transient neurologic deficit: Status: Acute Category: Medical Code(s): R29.818 - Other symptoms and signs involving the nervous system (2) Acute confusion: Status: Acute Category: Medical Code(s): R41.0 - Disorientation, unspecified (3) Hyperglycemia due to type 2 diabetes mellitus: Status: Acute Qualifiers: Diabetes mellitus long term care social worker insulin use: without long term care social worker use Qualified Code(s): E11.65 - Type 2 diabetes mellitus with hyperglycemia Category: Medical Code(s): E11.65 - Type 2 diabetes mellitus with hyperglycemia (4) Hypertension: Status: Acute Category: Medical Code(s): I10 - Essential (primary) hypertension (5) Diastolic dysfunction: Status: Acute Category: Medical Code(s): I51.89 - Other ill-defined heart diseases (6) Hyperlipidemia: Status: Acute Qualifiers: Hyperlipidemia type: mixed hyperlipidemia Qualified Code(s): E78.2 - Mixed hyperlipidemia Category: Medical Code(s): E78.5 - Hyperlipidemia, unspecified (7) CAD (coronary artery disease): Problem Comment: Medical mgt JUN 2022 JOSEF (2019) [facility] Status: Acute Qualifiers: Associated angina: with other forms of angina Coronary Disease- Associated Artery/Lesion type: bypass graft [place] vs. transplanted heart: jena heart Qualified Code(s): I25.708 - Atherosclerosis of coronary artery bypass graft(s), unspecified, with other forms of angina pectoris Category: Medical Code(s): I25.10 - Atherosclerotic heart disease of j[place] coronary artery without angina pectoris (8) Hypertension: Status: Acute Qualifiers: Hypertension type: primary hypertension Qualified Code(s): I10 - Essential (primary) hypertension Category: Medical Code(s): I10 - Essential (primary) hypertension (9) DM type 2 (diabetes mellitus, type 2): Status: Acute Qualifiers: Diabetes mellitus complication status: without complication Diabetes mellitus long term care social worker insulin use: without long-term use Qualified Code(s): E11.9 - Type 2 diabetes mellitus without complications Category: Medical Code(s): E11.9 - Type 2 diabetes mellitus without complications Plan 78-year-old with past medical history of diabetes on metformin, hypertension, CAD, hyperlipidemia, GERD, diastolic heart failure, status post CABG. Patient presents to hospital after experiencing right sided leaning issues with ataxia, vertigo, lightheadedness around 9 AM this morning. Patient had just left the shower and experienced performance in symptoms. Patient reports being able to drive to [employer] earlier that morning without incident. Patient able to attend [employer] later that day, but did experience some vomiting at [employer]. Denies previous issues with ataxia/right sided leaning issues. Also denies nausea, fevers, sick contacts, recent travel, diarrhea, constipation, abdominal pain, chest discomfort. States she suffers from chronic chills. Troponin 0.01 x 2 in emergency room, MAG 1.7, NA 131, CL 100. CTA head/neck shows signs of high-grade right MCA stenosis and bilateral ICA stenosis. CT brain done in emergency room shows old right MCA infarct. Patient admitted for CVA versus TIA workup. Problems as listed below: Lab/imaging reviewed at time of admission ?03/22/2024 echocardiogram EF 55% with diastolic dysfunction but without LV abnormalities. ? CT brain without contrast chronic changes without acute findings including old right MCA infarct ? CTA head: High-grade right MCA stenosis likely chronic ?CTA neck: Moderate bilateral ICA stenosis -right hand xray: Nondisplaced comminuted fracture of the 5th distal phalanx tuft. ? WBC 6.9, Hg 13.6, platelet 230, NA 131, K4.2, CL 100, serum CO2 26, BUN 14, CR 0.6, GLU 485, mag 1.7, AST 26, ALT 18, alk phos 133, BNP 660, T4 12, TSH 2.61 ? VBG pH 7.36, pCO2 45.9, LA 2.3 ?Troponin trend 0.01->0.01 CVA versus TIA: ?CTA head/neck shows signs of high-grade right MCA stenosis and bilateral ICA stenosis. CT brain done in emergency room shows old right MCA infarct. Will order MRI brain in AM. Will have patient evaluated by PT/OT during hospitalization for possible short-term rehab placement. ?Allow permissive hypertension overnight given CVA workup to assure adequate cerebral brain perfusion. Will only aggressively treat blood pressure if greater than SBP 200 and/or DBP greater 100. right 5th digit fracture secondary to car door trauma incident 04/28: ?Patient admits to slamming her fifth right digit in car door during [employer]'s trip 04/28. Right hand x-ray shows Nondisplaced comminuted fracture of the 5th distal phalanx tuft. ?PT/OT consulted, No ortho coverage tomorrow or for the rest of the month per tapering machine operator. Suspect PT/OT will place patient in splint, and patient can follow-up with Ortho as outpatient. Will also consult wound care given slight disco loration of right fifth digit after car door trauma incident 04/28 CAD/diastolic heart failure: Coreg 12.5 p.o. twice daily, Imdur 60 mg p.o. daily, nitroglycerin 0.4 sublingual nightly chest discomfort. Plus medications mentioned in hypertension section. Hyperlipidemia: Atorvastatin 40 mg p.o. daily GERD: Protonix 40 mg p.o. daily Diabetes poorly controlled with hyperglycemia: ?Sign scale insulin, ACHS Accu-Cheks, hold Ozempic and metformin. glimepiride 4 mg p.o. daily ? Patient's blood sugar 350 at 2122 tonight at time of admission. Sliding scale insulin initiated plus will administer 3 units IV regular insulin x 1. Hypertension: Hold valsartan 325/hydrochlorothiazide 25 given CVA workup allowing permissive hypertension. The rest of BP meds as mentioned in CAD section. Hydralazine 10 mg IV every 6 as needed SBP over 200 or DBP over 100. Labetalol 100 mg IV every 6 as needed SBP over 220, or DBP over 105 MDM [place]: High, patient presents with poorly controlled hyperglycemia, TIA possible CVA, with new right sided ataxia today. The symptoms pose threat to life and bodily function. Data: High, see above. Patient's daughter acted as independent historian during my interview with patient today. I spoke with the emergency room doctor at length about patient and we agree patient requires admission for hyperglycemia, TIA, and ataxia evaluation. Risk: High, prescription drug management as noted above. I made decision to admit patient to hospital for treatment of poorly controlled hyperglycemia and stroke workup. Patient receiving IV insulin, 35 minutes of total care time spent on patient by Dr. Dumont 04/29/2024.
[2024-04-29] MEDS: INSULIN HUMAN REGULAR 100 UNITS/ML 10ML VIAL 3 UNIT IVP (23:53)
--- NOTE | 2024-04-30 | PC.NURSE ---
Addendum entered by Deirdre Lund RN 04/30/24 00:30: At this time, patient's fingerstick blood glucose is 232. Original Note: Clarified humulin-R insulin IVP order with Tim WALTERS [id number]. I administered the dose (3 units) as appropriately per MAR; indication was due to the patient's hyperglycemic blood glucose reading (350). Patient's blood glucose will be rechecked in approximately 30 minutes after the administration.
[2024-04-30 00:01] LABS: Troponin I < 0.01 ng/ml (0.00-0.034)
[2024-04-30 00:35] LABS: POC Glucose,Bedside 232 (70-110)
[2024-04-30 04:00] VITALS: BP 132/75; PULSE 84; RESP 17; TEMP 36.7; O2SAT 95; BMI 30.4
[2024-04-30 04:27] LABS: Basophils % 0.6 % (0.1-2.0); Eosinophils # 0.1 K/mm3 (0.0-0.4); Hematocrit 42.5 % (37.0-47.0); Hemoglobin 13.9 g/dL (12.2-16.2); Lymphocytes # 1.5 K/mm3 (0.7-4.5); Lymphocytes % 23.6 % (10-50); Mean Corpuscular HGB Conc 32.8 g/dL (31.8-35.4); Mean Corpuscular Hemoglobin 28.3 pg (27.0-31.2); Mean Corpuscular Volume 86.2 fl (81-99); Mean Platelet Volume 9.4 fl (7.4-10.4); Monocytes # 0.6 K/mm3 (0.1-1.0); Monocytes % 8.4 % (1.7-9.3); Neutrophils # 4.3 K/mm3 (1.8-7.8); Neutrophils % 65.4 % (37.0-80.0); Platelet Count 240 K/mm3 (142-424); Red Blood Count 4.93 M/mm3 (4.20-5.40); Red Cell Distribution Width 14.7 % (11.5-17.5); White Blood Count 6.5 K/mm3 (4.8-10.8)
--- NOTE | 2024-04-30 04:37 | PC.NURSE ---
Ms Rachana Noble was newly admitted last night on behalf of the following documented diagnoses: hypertension, stroke-like symptoms, and hyperglycemia. The patient explained to me that she was having symptoms of feeling off and was leaning to the right side during ambulation. She also stated that she had recently shut her pinkie finger (on the right hand) in a car door; per hand x-ray report, she has a comminuted fracture to her fifth distal phalange. Patient is alert and oriented, but she did express periods of forgetfulness. Admission assessment and home medication reconciliation were completed this shift. During supervised ambulation to the bathroom, her gait was satisfactory but would continue to lean towards the right side with some unsteadiness. Patient has active bowel sounds and has been passing gas this shift. Patient has also been complaining of some occasional shortness of breath during exertion. Upon auscultation of her lungs, the patient had bilateral expiratory wheezing; rhonchi was heard in the right lung base; and there was diminished air movement in the left lobes. Thus far, patient has not had any complaints of nausea, dizziness, or pain. She has remained on a purewick per her request, and a bedside commode is also in her room for alternative use. Patient's blood pressure has decreased to the 190s/90s, heart rate has been slightly elevated, and her elevated blood glucose is being treated accordingly per JUL. At this time, the patient is lying supine in bed. No further acute changes noted thus far. Bed alarm on. Call light within reach.
[2024-04-30 04:38] LABS: Albumin Level 4.1 g/dl (3.5-5.0); Chloride 103 mmol/L (98-107); Potassium 3.5 mmoL/L (3.5-5.1); Sodium 134 mmol/L (136-145)
[2024-04-30 04:41] LABS: Alanine Aminotransferase 15 U/L (12-78); Alkaline Phosphatase 104 U/L (38-126); Aspartate Amino Transferase 26 U/L (14-36); Bilirubin,Total 0.7 mg/dl (0.2-1.3); Blood Urea Nitrogen 16 mg/dl (7-17); Calcium 9.6 mg/dl (8.4-10.2); Carbon Dioxide 30 mmol/L (22.0-30.0); Creatinine Clearance Estimated 52 mL/min (50-200); Estimated Glomerular Filt Rate 120 ml/min (>60); GFR (African American) 145 ML/MIN (>60); Glucose 215 mg/dl (74-100); Magnesium 1.7 mg/dl (1.6-2.3); Total Protein,Serum 7.3 g/dl (6.3-8.2)
[2024-04-30 04:42] LABS: Anion Gap 4.5 mEq/L (5-15)
[2024-04-30 04:43] LABS: Albumin/Globulin Ratio 1.3 (1.1-1.8); Globulin 3.2 g/dL (1.3-3.2)
[2024-04-30 04:53] LABS: Troponin I < 0.01 ng/ml (0.00-0.034)
[2024-04-30] MEDS: humaLOG 100 UNITS/ML 10ML VIAL (SSI) SUBCUT ×2 (05:55→10:45)
[2024-04-30 05:59] LABS: POC Glucose,Bedside 201 (70-110)
[2024-04-30 08:00] VITALS: BP 179/84; PULSE 94; RESP 18; TEMP 36.6; O2SAT 93
--- NOTE | 2024-04-30 08:13 | MR_ITS ---
FINAL REPORT TECHNIQUE: Multiplanar MR without contrast CLINICAL HISTORY: R/O CVA COMPARISON: Head CT performed 1 day prior. FINDINGS: Diffusion sequences show no signal abnormality to indicate acute infarct. Scattered periventricular white matter signal changes are seen compatible with moderate chronic ischemic gliotic disease. Severe generalized atrophy is present. Normal there is an old right posterior MCA infarct. Small chronic lacunar infarct is seen in the left basal ganglia. No mass, hemorrhage or edema is seen. Ventricles are normal. Major vascular flow voids are intact. IMPRESSION: Chronic changes without acute process. Reviewed, Interpreted and Dictated by Jalen King MD Transcribed by Zahra Ontiveros Authenticated and [facility]
[2024-04-30] MEDS: ISOSORBIDE MONO 60MG TAB.ER.24H 60 MG PO (09:12)
[2024-04-30] MEDS: ASPIRIN EC 81MG TABLET 81 MG PO (09:12)
[2024-04-30] MEDS: CARVEDILOL 25MG TABLET 25 MG PO (09:12)
[2024-04-30] MEDS: FENOFIBRATE 134MG CAPSULE 134 MG PO (09:12)
[2024-04-30] MEDS: IRBESARTAN 300MG TABLET 300 MG PO (09:12)
[2024-04-30] MEDS: EMPAGLIFLOZIN 10MG TABLET 20 MG PO (09:12)
--- NOTE | 2024-04-30 09:34 | HMH.PHAINT1 ---
Pharmacy Intervention Comments: HOME MEDICATION LIST VERIFIED USING LIST FROM OUTPATIENT PHARMACY
--- NOTE | 2024-04-30 09:56 | EXP.DC.SUM ---
General Admission date:: 04/29/24 Discharge date: 04/30/24 HPI HPI HPI: 78-year-old with past medical history of diabetes on metformin, hypertension, CAD, hyperlipidemia, GERD, diastolic heart failure, status post CABG. patient lives in the [facility] longterm facilities across from hospital. Patient in extremely good health normally, and states she drives to [place] most mornings to get breakfast. Patient presents to hospital after experiencing right sided leaning issues with ataxia, vertigo, lightheadedness around 9 AM this morning. Patient had just left the shower and experienced performance in symptoms. Patient reports being able to drive to [place] earlier that morning without incident. Patient able to attend [facility] later that day, but did experience some vomiting at [facility]. Denies previous issues with ataxia/right sided leaning issues. Also denies nausea, fevers, sick contacts, recent travel, diarrhea, constipation, abdominal pain, chest discomfort. States she suffers from chronic chills. Troponin 0.01 x 2 in emergency room, MAG 1.7, NA 131, CL 100. CTA head/neck shows signs of high-grade right MCA stenosis and bilateral ICA stenosis. CT brain done in emergency room shows old right MCA infarct. Patient's daughter present with patient emergency room and collaborates the story. Patient also admits to slamming right fifth digit and cardio 04/28 during [employer] trip. Right fifth digit appears discolored, but has normal range of motion during my examination. Hospital Course Hospital Course Hospital Course: 78-year-old with past medical history of diabetes on metformin, hypertension, CAD, hyperlipidemia, GERD, diastolic heart failure, status post CABG. Patient presents to hospital after experiencing right sided leaning issues with ataxia, vertigo, lightheadedness around 9 AM this morning. Patient had just left the shower and experienced performance in symptoms. Patient reports being able to drive to [place] earlier that morning without incident. Patient able to attend [facility] later that day, but did experience some vomiting at [facility]. Denies previous issues with ataxia/right sided leaning issues. Also denies nausea, fevers, sick contacts, recent travel, diarrhea, constipation, abdominal pain, chest discomfort. States she suffers from chronic chills. Troponin 0.01 x 2 in emergency room, MAG 1.7, NA 131, CL 100. CTA head/neck shows signs of high-grade right MCA stenosis and bilateral ICA stenosis. CT brain done in emergency room shows old right MCA infarct. Patient admitted for CVA versus TIA workup. MRI obtained showing no acute event. Patient back to baseline neurologically. Stable to discharge home with home health. Blood pressure and glucose control showing improvement. Problems addressed as follows: CVA versus TIA -CTA of the head and neck shows signs of some high-grade stenosis in right MCA and bilateral TCAs. CT brain with old right MCA infarct. MRI was obtained, showed chronic change but no acute finding of stroke. Would benefit from further eval as an outpatient in regard to any interventions for her stenoses. Will defer to PCP for further management. -Continue aspirin 81 mg daily, Plavix 75 mg daily for 21 days. Continue statin high intensity. Blood pressure severely elevated on presentation. This was made pressure regimen for improved control. Permissive hypertension over the first night of admission. Will continue carvedilol 25 mg twice daily for blood pressure, isosorbide mononitrate 60 mg daily, and valsartan HCTZ daily. Follow-up with PCP within a week for further adjustments to blood pressure regimen. right 5th digit fracture secondary to car door trauma incident 04/28: ?Patient admits to slamming her fifth right digit in car door during [employer] trip 04/28. Right hand x-ray shows Nondisplaced comminuted fracture of the 5th distal phalanx tuft. Not limiting her use. Conservative management. CAD/diastolic heart failure: Coreg 25 mg twice daily, Imdur 60 mg p.o. daily, nitroglycerin 0.4 sublingual nightly chest discomfort. Plus medications mentioned above Hyperlipidemia: Atorvastatin 40 mg p.o. daily GERD: Protonix 40 mg p.o. daily Diabetes poorly controlled with hyperglycemia: ? Glucose elevated on presentation. A1c obtained, elevated 11.6. Initiate insulin glargine 15 units in the morning. If morning glucose consistently above 200 over the next 3 to 4 days, increase to 20 units. Will need further adjustment. Defer adjustment to PCP. In the meantime we will also continue to Ozempic, warm and twice daily, empagliflozin 25 mg daily. Discontinued sulfonylurea medication due to risk for hypoglycemia. Total time spent on discharge 32 minutes in counseling, documentation, chart review, and direct care with patient. Exam Data for Last 24 hours Vital signs and Labs for Last 24 Hours: Temp Pulse Resp BP Pulse Ox O2 Del Method 98 F 94 H 18 179/84 H 93 L Room Air 04/30/24 08:00 04/30/24 08:00 04/30/24 08:00 04/30/24 08:00 04/30/24 08:00 04/30/24 09:00 Laboratory Results - last 24 hr 04/29/24 14:11: WBC 6.1, RBC 4.81, Hgb 13.6, Hct 42.9, MCV 89.3, MCH 28.3, MCHC 31.7 L, RDW 14.5, Plt Count 230, MPV 9.4, Neut % (Auto) 79.9, Lymph % (Auto) 12.2, [place]ard % (Auto) 4.9, Eos % (Auto) 2.1, Baso % (Auto) 0.9, Neut # (Auto) 4.8, Lymph # (Auto) 0.7, [place] # (Auto) 0.3, Eos # (Auto) 0.1, Baso # (Auto) 0.1, PT 10.2, INR 0.90, APTT 24.8, Sodium 131 L, Potassium 4.2, Chloride 100, Carbon Dioxide 26, Anion Gap 9.2, BUN 14, Creatinine 0.60, Estimated Creat Clear 50, Estimated GFR 97, Est GFR ( Amer) 118, Glucose 485 H*, Calcium 9.1, Magnesium 1.7, Total Bilirubin 0.7, AST 26, ALT 18, Alkaline Phosphatase 133 H, Troponin I < 0.01, NT-Pro-B Natriuret Pep 660 H, Total Protein 7.4, Albumin 4.2, Globulin 3.2, Albumin/Globulin Ratio 1.3, TSH 2.61, Thyroxine (T4) 12.0 H, Acetone Level None detected 04/29/24 14:32: VBG pH 7.36, VBG pCO2 45.9, VBG pO2 61.8 H, VBG HCO3 25.6, VBG Total CO2 27.0, VBG O2 Saturation 89.8 H, VBG Base Excess 0.2, VBG Lactic Acid 2.3 H 04/29/24 15:27: Urine Color Yellow, Urine Appearance Clear, Urine pH 6.5, Ur Specific Chase 1.015, Urine Protein Negative, Urine Glucose (UA) 3+, Urine Ketones Negative, Urine Blood Trace-i, Urine Nitrate Negative, Urine Bilirubin Negative, Urine Urobilinogen 0.2, Ur Leukocyte Esterase Negative, Urine RBC Occasional, Urine WBC 3-5, Ur Squamous Epith Cells Occasional, Urine Bacteria 1+ 04/29/24 17:25: Troponin I < 0.01 04/29/24 18:48: Lactate 1.6 04/29/24 21:20: Troponin I < 0.01 04/29/24 21:22: POC Glucose 350 H* 04/29/24 23:30: Troponin I < 0.01 04/30/24 00:27: POC Glucose 232 H 04/30/24 04:15: WBC 6.5, RBC 4.93, Hgb 13.9, Hct 42.5, MCV 86.2, MCH 28.3, MCHC 32.8, RDW 14.7, Plt Count 240, MPV 9.4, Neut % (Auto) 65.4, Lymph % (Auto) 23.6, [place]odd[place] % (Auto) 8.4, Eos % (Auto) 2.0, Baso % (Auto) 0.6, Neut # (Auto) 4.3, Lymph # (Auto) 1.5, [place]odd[place] # (Auto) 0.6, Eos # (Auto) 0.1, Baso # (Auto) 0.0, Sodium 134 L, Potassium 3.5, Chloride 103, Carbon Dioxide 30, Anion Gap 4.5 L, BUN 16, Creatinine 0.50 L, Estimated Creat Clear 52, Estimated GFR 120, Est GFR ( Amer) 145 D, Glucose 215 H D, Calcium 9.6, Magnesium 1.7, Total Bilirubin 0.7, AST 26, ALT 15, Alkaline Phosphatase 104, Troponin I < 0.01, Total Protein 7.3, Albumin 4.1, Globulin 3.2, Albumin/Globulin Ratio 1.3 04/30/24 05:51: POC Glucose 201 H I & O for Last 24 hours: Intake & Output 04/27/24 04/28/24 04/29/24 04/30/24 23:59 23:59 23:59 23:59 Intake Total 120 / 120 120 / 120 Output Total 200 / 200 Balance 120 / 120 -80 / -80 Weight 68.855 kg 68.583 kg Constitutional Constitutional: no acute distress, obese, chronically ill appearing and cooperative *Routine HEENT Exam Head: Present normocephalic Eye: Present EOMI and PERRL ENT: Present mucous membranes moist *Routine Neck Exam Neck: Present supple; Absent lymphadenopathy Routine Chest/Breast/Axilla Exam Comments: Well-healed sternotomy scar, no tenderness to palpation *Routine Respiratory Exam Respiratory: Present CTA bilaterally and normal respiratory effort; Absent prolonged expiratory phase, rhonchi, wheezes, crackles or diminished air movement *Routine Cardiovascular Exam Cardiovascular: Present RRR *Routine Abdominal Exam Abdominal: Present soft and normoactive bowel sounds; Absent tenderness *Routine Rectal Exam Patient deferred: visual exam *Routine Exam Patient deferred: external exam *Routine Extremities Exam Extremities: Present edema (Trace lower extremity); Absent cyanosis or clubbing *Routine Skin Exam Skin: Present warm; Absent rash *Routine Neurological Exam Neurological: Present alert, oriented X3, CN II-XII intact and moving all extremities; Absent altered mental status Routine Psychiatric Exam Psychiatric: Present normal affect, good insight and good judgment Results Data Completed and Pending Labs on day of discharge: Labs from last 24 hours 04/30/24 04/30/24 04/30/24 05:51 04:15 00:27 WBC 6.5 RBC 4.93 Hgb 13.9 Hct 42.5 MCV 86.2 MCH 28.3 MCHC 32.8 RDW 14.7 Plt Count 240 MPV 9.4 Neut % (Auto) 65.4 Lymph % (Auto) 23.6 Stoddard % (Auto) 8.4 Eos % (Auto) 2.0 Baso % (Auto) 0.6 Neut # (Auto) 4.3 Lymph # (Auto) 1.5 Stoddard # (Auto) 0.6 Eos # (Auto) 0.1 Baso # (Auto) 0.0 PT INR APTT VBG pH VBG pCO2 VBG pO2 VBG HCO3 VBG Total CO2 VBG O2 Saturation VBG Base Excess VBG Lactic Acid Sodium 134 L Potassium 3.5 Chloride 103 Carbon Dioxide 30 Anion Gap 4.5 L BUN 16 Creatinine 0.50 L Estimated Creat Clear 52 Estimated GFR 120 Est GFR ( Amer) 145 D Glucose 215 H D POC Glucose 201 H 232 H Lactate Calcium 9.6 Magnesium 1.7 Total Bilirubin 0.7 AST 26 ALT 15 Alkaline Phosphatase 104 Troponin I < 0.01 NT-Pro-B Natriuret Pep Total Protein 7.3 Albumin 4.1 Globulin 3.2 Albumin/Globulin Ratio 1.3 TSH Thyroxine (T4) Urine Color Urine Appearance Urine pH Ur Specific Chase Urine Protein Urine Glucose (UA) Urine Ketones Urine Blood Urine Nitrate Urine Bilirubin Urine Urobilinogen Ur Leukocyte Esterase Urine RBC Urine WBC Ur Squamous Epith Cells Urine Bacteria Acetone Level 04/29/24 04/29/24 04/29/24 23:30 21:22 21:20 WBC RBC Hgb Hct MCV MCH MCHC RDW Plt Count MPV Neut % (Auto) Lymph % (Auto) Stoddard % (Auto) Eos % (Auto) Baso % (Auto) Neut # (Auto) Lymph # (Auto) Stoddard # (Auto) Eos # (Auto) Baso # (Auto) PT INR APTT VBG pH VBG pCO2 VBG pO2 VBG HCO3 VBG Total CO2 VBG O2 Saturation VBG Base Excess VBG Lactic Acid Sodium Potassium Chloride Carbon Dioxide Anion Gap BUN Creatinine Estimated Creat Clear Estimated GFR Est GFR ( Amer) Glucose POC Glucose 350 H* Lactate Calcium Magnesium Total Bilirubin AST ALT Alkaline Phosphatase Troponin I < 0.01 < 0.01 NT-Pro-B Natriuret Pep Total Protein Albumin Globulin Albumin/Globulin Ratio TSH Thyroxine (T4) Urine Color Urine Appearance Urine pH Ur Specific Chase Urine Protein Urine Glucose (UA) Urine Ketones Urine Blood Urine Nitrate Urine Bilirubin Urine Urobilinogen Ur Leukocyte Esterase Urine RBC Urine WBC Ur Squamous Epith Cells Urine Bacteria Acetone Level 04/29/24 04/29/24 04/29/24 18:48 17:25 15:27 WBC RBC Hgb Hct MCV MCH MCHC RDW Plt Count MPV Neut % (Auto) Lymph % (Auto) Stoddard % (Auto) Eos % (Auto) Baso % (Auto) Neut # (Auto) Lymph # (Auto) Stoddard # (Auto) Eos # (Auto) Baso # (Auto) PT INR APTT VBG pH VBG pCO2 VBG pO2 VBG HCO3 VBG Total CO2 VBG O2 Saturation VBG Base Excess VBG Lactic Acid Sodium Potassium Chloride Carbon Dioxide Anion Gap BUN Creatinine Estimated Creat Clear Estimated GFR Est GFR ( Amer) Glucose POC Glucose Lactate 1.6 Calcium Magnesium Total Bilirubin AST ALT Alkaline Phosphatase Troponin I < 0.01 NT-Pro-B Natriuret Pep Total Protein Albumin Globulin Albumin/Globulin Ratio TSH Thyroxine (T4) Urine Color Yellow Urine Appearance Clear Urine pH 6.5 Ur Specific Chase 1.015 Urine Protein Negative Urine Glucose (UA) 3+ Urine Ketones Negative Urine Blood Trace-i Urine Nitrate Negative Urine Bilirubin Negative Urine Urobilinogen 0.2 Ur Leukocyte Esterase Negative Urine RBC Occasional Urine WBC 3-5 Ur Squamous Epith Cells Occasional Urine Bacteria 1+ Acetone Level 04/29/24 04/29/24 14:32 14:11 WBC 6.1 RBC 4.81 Hgb 13.6 Hct 42.9 MCV 89.3 MCH 28.3 MCHC 31.7 L RDW 14.5 Plt Count 230 MPV 9.4 Neut % (Auto) 79.9 Lymph % (Auto) 12.2 Stoddard % (Auto) 4.9 Eos % (Auto) 2.1 Baso % (Auto) 0.9 Neut # (Auto) 4.8 Lymph # (Auto) 0.7 Stoddard # (Auto) 0.3 Eos # (Auto) 0.1 Baso # (Auto) 0.1 PT 10.2 INR 0.90 APTT 24.8 VBG pH 7.36 VBG pCO2 45.9 VBG pO2 61.8 H VBG HCO3 25.6 VBG Total CO2 27.0 VBG O2 Saturation 89.8 H VBG Base Excess 0.2 VBG Lactic Acid 2.3 H Sodium 131 L Potassium 4.2 Chloride 100 Carbon Dioxide 26 Anion Gap 9.2 BUN 14 Creatinine 0.60 Estimated Creat Clear 50 Estimated GFR 97 Est GFR ( Amer) 118 Glucose 485 H* POC Glucose Lactate Calcium 9.1 Magnesium 1.7 Total Bilirubin 0.7 AST 26 ALT 18 Alkaline Phosphatase 133 H Troponin I < 0.01 NT-Pro-B Natriuret Pep 660 H Total Protein 7.4 Albumin 4.2 Globulin 3.2 Albumin/Globulin Ratio 1.3 TSH 2.61 Thyroxine (T4) 12.0 H Urine Color Urine Appearance Urine pH Ur Specific Chase Urine Protein Urine Glucose (UA) Urine Ketones Urine Blood Urine Nitrate Urine Bilirubin Urine Urobilinogen Ur Leukocyte Esterase Urine RBC Urine WBC Ur Squamous Epith Cells Urine Bacteria Acetone Level None detected DS: Diagnosis Discharge Diagnosis (1) Transient neurologic deficit: Status: Acute Code(s): R29.818 - Other symptoms and signs involving the nervous system (2) Acute confusion: Status: Acute Code(s): R41.0 - Disorientation, unspecified (3) Hyperglycemia due to type 2 diabetes mellitus: Status: Acute Code(s): E11.65 - Type 2 diabetes mellitus with hyperglycemia Qualifiers: Diabetes mellitus intermediate insulin use: without intermediate use Qualified Code(s): E11.65 - Type 2 diabetes mellitus with hyperglycemia (4) Hypertension: Status: Acute Code(s): I10 - Essential (primary) hypertension (5) Diastolic dysfunction: Status: Acute Code(s): I51.89 - Other ill-defined heart diseases (6) Hyperlipidemia: Status: Acute Code(s): E78.5 - Hyperlipidemia, unspecified Qualifiers: Hyperlipidemia type: mixed hyperlipidemia Qualified Code(s): E78.2 - Mixed hyperlipidemia (7) CAD (coronary artery disease): Status: Acute Code(s): I25.10 - Atherosclerotic heart disease of [place] coronary artery without angina pectoris Qualifiers: Associated angina: with other forms of angina Coronary Disease-Associated Artery/Lesion type: bypass graft [place] vs. transplanted heart: [place] heart Qualified Code(s): I25.708 - Atherosclerosis of coronary artery bypass graft(s), unspecified, with other forms of angina pectoris Problem details: Medical mgt JUN 2022 JOSEF (2020) [facility] (8) DM type 2 (diabetes mellitus, type 2): Status: Acute Code(s): E11.9 - Type 2 diabetes mellitus without complications Qualifiers: Diabetes mellitus complication status: without complication Diabetes mellitus intermediate insulin use: without dedicated intermodal truck driver use Qualified Code(s): E11.9 - Type 2 diabetes mellitus without complications Meds Home Medications and Allergies Home Medications ?Medication ?Instructions ?Recorded ?Confirmed ?Type aspirin 81 mg tablet 81 mg PO DAILY Heart disease 05/17/22 04/30/24 History cetirizine 10 mg tablet 10 mg PO DAILY PRN allergies 05/17/22 04/30/24 History empagliflozin 25 mg tablet 25 mg PO DAILY Diabetes #90 tabs 12/06/23 04/30/24 Rx (Jardiance) semaglutide 0.25 mg or 0.5 mg (2 0.25 mg (0.368 mL) SQ WEEKLY dm 03/06/24 04/29/24 Rx mg/3 mL) subcutaneous pen injector #1.84 mL (Ozempic) isosorbide mononitrate 60 mg 60 mg PO DAILY #90 tabs 03/12/24 04/29/24 Rx tablet,extended release 24 hr atorvastatin 40 mg tablet 40 mg PO HS 04/30/24 04/30/24 History carvedilol 25 mg tablet 25 mg PO BID 30 days #60 tabs 04/30/24 Rx clopidogrel 75 mg tablet (Plavix) 75 mg PO DAILY #20 tabs 04/30/24 Rx fenofibric acid (choline) 135 mg 135 mg PO DAILY 04/30/24 04/29/24 History capsule,delayed release insulin glargine 100 unit/mL (3 15 unit (0.15 mL) SQ DAILY 30 days 04/30/24 Rx mL) subcutaneous pen (Lantus #4.5 mL Solostar U-100 Insulin) metformin 500 mg tablet,extended 1,000 mg PO BID 04/30/24 04/30/24 History release 24 hr nitroglycerin 0.4 mg sublingual 0.4 mg sublingual Q5MINP PRN Chest 04/30/24 04/30/24 History tablet Pain pantoprazole 40 mg tablet,delayed 40 mg PO DAILY 04/30/24 04/30/24 History release pen needle, diabetic 31 gauge x #100 ea 04/30/24 Rx 1/4 valsartan 320 1 tab PO DAILY 04/30/24 04/30/24 History mg-hydrochlorothiazide 25 mg tablet New Prescriptions to Start Prescriptions: carvedilol Hitesh Roy clopidogrel [Plavix] Hitesh Roy insulin glargine [Lantus Solostar U-100 Insulin] Hitesh Roy pen needle, diabetic Hitesh Roy Allergies Allergy/AdvReac Type Severity Reaction Status Date / Time No Known Allergies Allergy Verified 03/12/24 09:42 Discharge Plan Disposition Patient Disposition: Home Health Service Condition: Fair Discharge Order Discharge Orders: Discharge Order (Routine); Ordered 04/30/24 Ordered By: Hitesh Roy Follow up Plan Follow up with: Patricia Le APRN [Primary Care Provider] - 05/09/24 10:00 am ([facility] [address] [address] ) Prescriptions/Medication Reconciliation: New carvedilol 25 mg Tablet 25 mg PO BID 30 Days Qty: 60 0RF insulin glargine [Lantus Solostar U-100 Insulin] 100 unit/mL (3 mL) Insulin Pen 15 unit SQ DAILY 30 Days Qty: 4.5 0RF (DME) pen needle, diabetic 31 gauge x 1/4 needle See Rx Instructions .ROUTE .MEDSUPPLY Qty: 100 0RF Rx Instructions: As directed clopidogrel [Plavix] 75 mg tablet 75 mg PO DAILY Qty: 20 0RF Continued Ozempic 0.25 mg or 0.5 mg (2 mg/3 mL) pen injector 0.25 mg SQ WEEKLY Qty: 1.84 2RF Rx Instructions: for 4 weeks isosorbide mononitrate 60 mg tablet extended release 24 hr 60 mg PO DAILY Qty: 90 3RF cetirizine 10 mg tablet 10 mg PO DAILY PRN (Reason: allergies) aspirin 81 mg tablet 81 mg PO DAILY Jardiance 25 mg tablet 25 mg PO DAILY Qty: 90 0RF metformin 500 mg tablet extended release 24 hr 1,000 mg PO BID Patient Comments: TAKE 2 TABLETS BY MOUTH TWICE A DAY FOR DIABETES valsartan-hydrochlorothiazide 320-25 mg tablet 1 tab PO DAILY Patient Comments: TAKE 1 TABLET BY MOUTH ONCE DAILY atorvastatin 40 mg tablet 40 mg PO HS pantoprazole 40 mg tablet,delayed release (DR/EC) 40 mg PO DAILY Rx Instructions: TAKE 1 TABLET BY MOUTH ONCE DAILY nitroglycerin 0.4 mg tablet, sublingual 0.4 mg sublingual Q5MINP PRN (Reason: Chest Pain) Rx Instructions: PLACE 1 TABLET UNDER TONGUE EVERY 5 MINUTES NEEDED FOR CHEST PAIN; DO NOT EXCEED 3 DOSES PER EPISODE fenofibric acid (choline) 135 mg capsule,delayed release(DR/EC) 135 mg PO DAILY Discontinued carvedilol 12.5 mg tablet 12.5 mg PO BID Rx Instructions: TAKE 1 TABLET BY MOUTH TWICE DAILY - MUST ADMINISTER WITH A MEAL/FOOD glimepiride 4 mg tablet 8 mg PO DAILY Rx Instructions: TAKE 2 TABLETS BY MOUTH ONCE DAILY FOR DIABETES Problem Reconciliation Problems Reviewed?: Yes Patient Discharge Instructions ACTIVITY: Continue current activity and Ambulate as tolerated DIET: continue same diet Patient Instructions: Hypertension (Alternative Therapy), DI for Transient Ischemic Attack, DI for Hyperglycemia -- Adult Print Language: Latvian Providers Primary Care Provider: Rey,Patricia Admit Provider: Nirav Dumont Attending Provider: Nirav Dumont
--- NOTE | 2024-04-30 10:15 | HMH.PTEV ---
Physical Therapy Evaluation Rehab PT IP Evaluation Start: 04/29/24 23:13 Freq: ONCE Status: Active Protocol: Document 04/30/24 10:13 STEF (Rec: 04/30/24 10:15 STEF [id number]) Subjective/History History History Per H&P: 78-year-old with past medical history of diabetes on metformin, hypertension, CAD, hyperlipidemia, GERD, diastolic heart failure, status post CABG. patient lives in the [facility] nursing home facilities across from hospital. Patient in extremely good health normally , and states she drives to [place] most mornings to get breakfast. Patient presents to hospital after experiencing right sided leaning issues with ataxia, vertigo, lightheadedness around 9 AM this morning. Patient had just left the shower and experienced performance in symptoms. Patient reports being able to drive to [place] earlier that morning without incident. Patient able to attend [facility] later that day , but did experience some vomiting at [facility]. Denies previous issues with ataxia/right sided leaning issues. Also denies nausea, fevers, sick contacts, recent travel, diarrhea, constipation , abdominal pain, chest discomfort. States she suffers from chronic chills. Troponin 0.01 x 2 in emergency room, MAG 1.7, NA 131, CL 100 . CTA head/neck shows signs of high-grade right MCA stenosis and bilateral ICA stenosis. CT brain done in emergency room shows old right MCA infarct. Patient's daughter present with patient emergency room and collaborates the story. Subjective Subjective Lives alone at the [facility]. Pt usually IND with all mobility without AD use. Pt still driving prior to admission. New diagnosis of cancer in past 12 No months? Rehab PT IP Eval Objective Appearance Patient Behavior Appropriate,Cooperative Patient Orientation Person,Situation Difficulty following instructions none Speech Pattern Clear Ambulation Patient Able to Ambulate Yes Ambulation Observation IP General Gait Pattern Observation No Deviations/Normal Ambulation Distance (feet) 80 Ambulation Assistive Device None Ambulation Ability Supervision/Stand by Balance Ability to Arise Able, uses arms to help Sitting Balance Steady, safe Standing Balance Steady, wide stance Dynamic Sitting Balance Ability Good Dynamic Standing Balance Ability Good Transfers Bed Transfer Ability Independent Sit to Stand Bed Transfer Ability Independent Rehab PT IP prob,goals,plan Problems Date of Evaluation: 04/30/24 Rehab Potential Rehab Potential Innapropriate for Skilled Therapy Discharge Plan PT Discharge Plan Pt not appropriate for skilled inpatient physical therapy d/ t mobility being at baseline/ IND. Recommending HH services to address general strengthening. Eval Complexity Eval Charge Codes 99914 - Moderate Complexity PHYSICIAN CERTIFICATION: I certify the specified therapy services for Rachana Noble are required, authorized, and reviewed every 30 days.
--- NOTE | 2024-04-30 10:18 | SW/DCPLANNER ---
Addendum entered by Irma Moreno 04/30/24 12:48: Patient information/order faxed to [facility]/ [facility]. Kit reviewed and stated that services will begin Thursday 05/03 for this patient. Original Note: I spoke w/ this patient regarding plans once medically stable for discharge. PT/OT evaluated patient and recommended home health services at time of discharge. Patient is agreeable to home health services and does not have an agency preference. Patient information/order will be faxed to [facility] once ready for discharge. Discharge date is unknown at this time. CM will continue to follow up.
[2024-04-30] MEDS: INSULIN GLARGINE 100 UNITS/ML 3ML FLEXPEN 10 UNIT SUBCUT (10:35)
[2024-04-30] MEDS: CLOPIDOGREL 75MG TAB 75 MG PO (10:35)
[2024-04-30 10:45] LABS: POC Glucose,Bedside 293 (70-110)
[2024-04-30 10:52] LABS: HIV Combo NEGATIVE (Negative)
--- NOTE | 2024-04-30 10:55 | HMH.OTEV ---
OT Inpatient Evaluation Rehab OT IP Evaluation Start: 04/29/24 23:13 Freq: ONCE Status: Active Protocol: Document 04/30/24 10:49 TODDLURAY (Rec: 04/30/24 10:55 [facility] [id number]) Rehab OT IP Assessment Subjective History Per H&P: 78-year-old with past medical history of diabetes on metformin, hypertension, CAD, hyperlipidemia, GERD, diastolic heart failure, status post CABG. patient lives in the [facility] custodial facilities across from hospital. Patient in extremely good health normally , and states she drives to [place] most mornings to get breakfast. Patient presents to hospital after experiencing right sided leaning issues with ataxia, vertigo, lightheadedness around 9 AM this morning. Patient had just left the shower and experienced performance in symptoms. Patient reports being able to drive to [employer] earlier that morning without incident. Patient able to attend [facility] later that day , but did experience some vomiting at [facility]. Denies previous issues with ataxia/right sided leaning issues. Also denies nausea, fevers, sick contacts, recent travel, diarrhea, constipation , abdominal pain, chest discomfort. States she suffers from chronic chills. Troponin 0.01 x 2 in emergency room, MAG 1.7, NA 131, CL 100 . CTA head/neck shows signs of high-grade right MCA stenosis and bilateral ICA stenosis. CT brain done in emergency room shows old right MCA infarct. Patient's daughter present with patient emergency room and collaborates the story. Subjective Prior to being in the hospital , pt lived at home alone. Pt claims normally she is independent with all ADLs and simple IADLs. She does have a cleaning lady come in to assist with heavier household tasks. Pt does not use a walker or cane at this time during functional transfers. Pt does still drive. Objective Patient Orientation Person,Place,Birthday Right Upper Extremity Gross ROM WFL Left Upper Extremity Gross ROM WFL Bed Mobility bed mobility-scooting,bed mobility - supine/sit Assist Level Supervision/Stand by Transfer Training Sit/Stand Transfer Assist Level Supervision/Stand by Lower Body Dressing Ability Standby Assistance Performing Toilet Hygiene Ability Standby Assistance Overall Commode/Toilet Transfer Ability Standby Assistance Commode/Toilet Transfer Technique Sit to/from Ambulatory Rehab OT IP prob,goals,plan Problems Date of Evaluation: 04/30/24 Rehab Potential Rehab Potential Innapropriate for Skilled Therapy Discharge Plan OT Discharge Plan Pt appears to be at her baseline with functional transfers and ADL independence . Pt can return home once she is medically stable per physician. Therapist does recommend HH OT evaluation to evaluate environmental safety upon returning home. Eval Complexity Eval Charge Codes 05895 - Low Complexity PHYSICIAN CERTIFICATION: I certify the specified therapy services for Rachana Noble are required, authorized, and reviewed every 30 days.
[2024-04-30 15:33] LABS: Hemoglobin A1C 11.6 % (4.0-6.0)
--- NOTE | 2024-05-01 10:24 | SW/DCPLANNER ---
Spoke with patient on the phone. Patient stated that she is doing well. Patient stated that she got her medication filled at clinic pharmacy before she left. Patient stated that she is aware of her upcoming appointment. Patient stated that she has no concerns or questions at this time. aZch Craig
[2024-05-01 11:40] LABS: HCV Ab Non Reactive (Non Reactive)
== END 2024-04-30 16:04 | disposition home health service (06) ==
LOC: ER 18:00 → 2ND 20:21
PROVIDERS: Internal Medicine Adolescent Medicine; Admitting Provider Internal Medicine; Emergency Provider Emergency Medicine; PCP Family Medicine; Visit Provider Internal Medicine
DX: G45.9 Transient cerebral ischemic attack, unspecified (principal); R29.818 Other symptoms and signs involving the nervous system; R41.0 Disorientation, unspecified; E11.65 Type 2 diabetes mellitus with hyperglycemia; I11.0 Hypertensive heart disease with heart failure; E78.2 Mixed hyperlipidemia; I25.708 Atherosclerosis of coronary artery bypass graft(s), unspecified, with other forms of angina pectoris; W23.0XXA Caught, crushed, jammed, or pinched between moving objects, initial encounter; S62.636A Displaced fracture of distal phalanx of right little finger, initial encounter for closed fracture; I50.30 Unspecified diastolic (congestive) heart failure; Z79.899 Other long term (current) drug therapy; Z95.1 Presence of aortocoronary bypass graft; Z79.85 Long-term (current) use of injectable non-insulin antidiabetic drugs; I25.118 Atherosclerotic heart disease of native coronary artery with other forms of angina pectoris; Z79.4 Long term (current) use of insulin
CPT/HCPCS: 70450; 70496; 70498; 70551; 71045; 73120; 80053; 81001; 82009; 82803; 82962; 83036; 83605; 83735; 83880; 84436; 84443; 84484; 85025; 85610; 85730; 86803; 87040; 87389; 93005; 97162; 97165; 99285; G0378; J7120; Q9967

== ENCOUNTER 2024-05-09 22:37 | Outpatient (CLI) | payer MEDICARE, SELFPAY | END 2024-05-09 23:59 | disposition home or self-care (01) | LOC: LAB 22:38 | PROVIDERS: PCP Family Medicine; Visit Provider Family Medicine | DX: N39.0 Urinary tract infection, site not specified (principal) | CPT/HCPCS: 87086 ==

== ENCOUNTER 2024-05-14 10:00 | Outpatient (CLI) | payer MEDICARE, SELFPAY | END 2024-05-14 23:59 | disposition home or self-care (01) | LOC: RT 10:02 | PROVIDERS: PCP Family Medicine; Visit Provider Family Medicine | DX: R55 Syncope and collapse (principal) | CPT/HCPCS: 93225; 93227 ==

== ENCOUNTER 2024-05-16 11:22 | Outpatient (CLI) | payer MEDICARE, SELFPAY ==
[2024-05-16 19:18] LABS: Alanine Aminotransferase 17 U/L (12-78); Albumin Level 3.9 g/dl (3.5-5.0); Albumin/Globulin Ratio 1.4 (1.1-1.8); Alkaline Phosphatase 73 U/L (38-126); Anion Gap 14.4 mEq/L (5-15); Aspartate Amino Transferase 22 U/L (14-36); Bilirubin,Total 0.6 mg/dl (0.2-1.3); Blood Urea Nitrogen 42 mg/dl (7-17); Calcium 9.8 mg/dl (8.4-10.2); Carbon Dioxide 24 mmol/L (22.0-30.0); Chloride 99 mmol/L (98-107); Estimated Glomerular Filt Rate 61 ml/min (>60); GFR (African American) 74 ML/MIN (>60); Globulin 2.8 g/dL (1.3-3.2); Glucose 358 mg/dl (74-100); Potassium 4.4 mmoL/L (3.5-5.1); Sodium 133 mmol/L (136-145); Total Protein,Serum 6.7 g/dl (6.3-8.2)
[2024-05-16 19:34] LABS: Free Thyroxine Index 3.4 ug/dL (5.93-13.13); T4 (Thyroxine) 9.1 ug/dl (5.53-11.0); Triiodothryronine (T3) Uptake 37 % (23.5-40.5)
[2024-05-16 19:47] LABS: Thyroid Stimulating Hormone 3.77 uIU/mL (0.465-4.68)
== END 2024-05-16 23:59 | disposition home or self-care (01) ==
LOC: LAB.DROPOF 05-18 08:36
PROVIDERS: PCP Family Medicine; Visit Provider Family Medicine
DX: R41.0 Disorientation, unspecified (principal)
CPT/HCPCS: 80053; 84436; 84443; 84479

== ENCOUNTER 2024-06-17 21:39 | Outpatient (CLI) | payer MEDICARE, SELFPAY | END 2024-06-17 23:59 | disposition home or self-care (01) | LOC: LAB.DROPOF 21:40 | PROVIDERS: PCP Family Medicine; Visit Provider Family Medicine | DX: N39.0 Urinary tract infection, site not specified (principal); B96.1 Klebsiella pneumoniae [K. pneumoniae] as the cause of diseases classified elsewhere | CPT/HCPCS: 87086; 87088; 87186 ==

== ENCOUNTER 2024-08-15 14:02 | Outpatient (CLI) | payer MEDICARE, SELFPAY ==
--- NOTE | 2024-08-15 14:09 | XR_ITS ---
FINAL REPORT CLINICAL HISTORY: Left Humerus Pain, nki FINDINGS: Left humerus TWO VIEW FINDINGS: Two views show no evidence of an acute, displaced fracture or dislocation of the visualized bony architecture. The joint spaces appear normal. IMPRESSION: Unremarkable exam. Authenticated and ERN
== END 2024-08-15 23:59 | disposition home or self-care (01) ==
LOC: RAD 14:03
PROVIDERS: PCP Family Medicine; Visit Provider Physician Assistant Surgical
DX: M79.602 Pain in left arm (principal)
CPT/HCPCS: 73060

== ENCOUNTER 2024-08-30 11:22 | Outpatient (CLI) | payer MEDICARE, SELFPAY ==
[2024-08-30 13:41] LABS: Vitamin B12 212 pg/mL (239-931)
== END 2024-08-30 23:59 | disposition home or self-care (01) ==
LOC: LAB 11:23
PROVIDERS: PCP Family Medicine; Visit Provider Specialist
DX: R41.0 Disorientation, unspecified (principal); I63.59 Cerebral infarction due to unspecified occlusion or stenosis of other cerebral artery; G45.9 Transient cerebral ischemic attack, unspecified
CPT/HCPCS: 36415; 82607

== ENCOUNTER 2024-10-14 16:42 | Emergency (ER) | payer MEDICARE, SELFPAY ==
[2024-10-14 16:49] VITALS: BP 153/78; PULSE 89; RESP 16; TEMP 36.8; O2SAT 99; BMI 29.5
--- NOTE | 2024-10-14 16:54 | PC.NURSE ---
Pt left leg elevated and ice pack applied
--- NOTE | 2024-10-14 17:30 | XR_ITS ---
PROCEDURE INFORMATION: Exam: XR Left Foot Exam date and time: 10/14/2024 6:36 PM Age: 78 years old Clinical indication: Injury or trauma TECHNIQUE: Imaging protocol: Radiologic exam of the left foot. Views: 3 or more views. COMPARISON: CR XR ANKLE LT MIN 3V 10/14/2024 6:36 PM FINDINGS: Bones/joints: There is a minimally displaced oblique fracture of the distal fibula. No other acute fracture. Moderate plantar calcaneal spurring noted. Soft tissues: Significant lateral soft tissue swelling of the ankle. IMPRESSION: Minimally displaced distal fibula fracture
--- NOTE | 2024-10-14 17:30 | XR_ITS ---
PROCEDURE INFORMATION: Exam: XR Left Ankle Exam date and time: 10/14/2024 6:36 PM Age: 78 years old Clinical indication: Injury or trauma TECHNIQUE: Imaging protocol: Radiologic exam of the left ankle. Views: 3 or more views. COMPARISON: CR XR FOOT LT MIN 3V 10/14/2024 6:36 PM FINDINGS: Bones/joints: There is a minimally displaced oblique fracture distal fibula just above the ankle joint. No other acute fracture evident. Osseous alignment is otherwise normal. Moderate plantar spurring of the calcaneus. Soft tissues: Significant lateral soft tissue swelling IMPRESSION: Minimally displaced distal fibula fracture
--- NOTE | 2024-10-14 17:30 | PC.NURSE ---
rad notified of xrays ordered on pt
--- NOTE | 2024-10-14 17:41 | PC.NURSE ---
Kelsey Lopez provided pt with ice pack for left ankle.
--- NOTE | 2024-10-14 18:37 | ED_ITS ---
Discharge Plan Disposition Patient Disposition: Home, Self-Care Condition: Good Prescriptions Prescriptions: No Action Ozempic 0.25 mg or 0.5 mg (2 mg/3 mL) pen injector 0.25 mg SQ WEEKLY Qty: 1.84 2RF Rx Instructions: for 4 weeks isosorbide mononitrate 60 mg tablet extended release 24 hr 60 mg PO DAILY Qty: 90 3RF atorvastatin [Lipitor] 80 mg tablet 80 mg PO HS Qty: 90 3RF (DME) Accu-Chek Guide test strips Strip See Rx Instructions .ROUTE .MEDSUPPLY Qty: 10 Rx Instructions: As directed diclofenac sodium 1 % gel 2 g topical QID Qty: 100 2RF Rx Instructions: apply to single elbow, wrist or hand; for hand includes palm/fingers/back of hand cetirizine 10 mg tablet 10 mg PO DAILY PRN (Reason: allergies) aspirin 81 mg tablet 81 mg PO DAILY (DME) pen needle, diabetic [BD Ultra-Fine Mini Pen Needle] 31 gauge x 3/16 needle See Rx Instructions .ROUTE .MEDSUPPLY Qty: 1200 Rx Instructions: As directed metformin 500 mg tablet extended release 24 hr See Rx Instructions .ROUTE .COMPLEX Qty: 120 2RF Dose Instruction: TAKE 2 TABLETS BY MOUTH TWICE A DAY FOR DIABETES Rx Instructions: TAKE 2 TABLETS BY MOUTH TWICE A DAY FOR DIABETES insulin glargine [Lantus Solostar U-100 Insulin] 100 unit/mL (3 mL) insulin pen 20 unit SQ DAILY 30 Days Qty: 6 3RF Jardiance 25 mg tablet See Rx Instructions .ROUTE .COMPLEX Qty: 90 2RF Dose Instruction: TAKE ONE TABLET BY MOUTH EVERY DAY FOR diabetes Rx Instructions: TAKE ONE TABLET BY MOUTH EVERY DAY FOR diabetes clopidogrel 75 mg tablet See Rx Instructions .ROUTE .COMPLEX Qty: 90 1RF Dose Instruction: TAKE 1 TABLET BY MOUTH ONCE DAILY Rx Instructions: TAKE 1 TABLET BY MOUTH ONCE DAILY hydroxocobalamin 1,000 mcg/mL solution 100 mcg IM QMONTH Qty: 0.1 5RF pantoprazole 40 mg tablet,delayed release (DR/EC) See Rx Instructions .ROUTE .COMPLEX Qty: 90 2RF Dose Instruction: TAKE 1 TABLET BY MOUTH ONCE DAILY Rx Instructions: TAKE 1 TABLET BY MOUTH ONCE DAILY (DME) Omnipod 5 G6-G7 Intro Kt(Gen5) Cartridge See Rx Instructions .Route Qty: 1 0RF Rx Instructions: As directed (DME) Omnipod 5 G6-G7 Pods (Gen 5) Cartridge See Rx Instructions .Route Qty: 5 2RF Rx Instructions: As directed carvedilol 25 mg tablet See Rx Instructions .ROUTE .COMPLEX Qty: 60 2RF Dose Instruction: TAKE 1 TABLET BY MOUTH TWICE A DAY Rx Instructions: TAKE 1 TABLET BY MOUTH TWICE A DAY nitroglycerin 0.4 mg tablet, sublingual 0.4 mg sublingual Q5MINP PRN (Reason: Chest Pain) Qty: 25 4RF Rx Instructions: PLACE 1 TABLET UNDER TONGUE EVERY 5 MINUTES NEEDED FOR CHEST PAIN; DO NOT EXCEED 3 DOSES PER EPISODE (DME) Dexcom G7 Sensor Device See Rx Instructions .Route Qty: 3 4RF Rx Instructions: As directed (DME) Dexcom G7 Metal Crafts Teacher Misc See Rx Instructions .Route Qty: 1 3RF Rx Instructions: As directed valsartan-hydrochlorothiazide 320-25 mg tablet 1 tab PO DAILY Patient Comments: TAKE 1 TABLET BY MOUTH ONCE DAILY fenofibric acid (choline) 135 mg capsule,delayed release(DR/EC) 135 mg PO DAILY (DME) pen needle, diabetic 31 gauge x 1/4 needle See Rx Instructions .ROUTE .MEDSUPPLY Qty: 100 0RF Rx Instructions: As directed Referrals Follow up/Referrals: Patricia Le APRN [Primary Care Provider, Family Practice] - See instructions Bandar Norris DO [Staff Physician, Orthopedics] - See instructions Activity Restrictions/Add. Instructions Additional Instructions/Restrictions: I have referred you to the orthopedic surgeon. Please call tomorrow to make your appointment. Please use weightbearing as tolerated with your Ortho boot and walker and do not try to ambulate without the walker for safety reasons.. I recommend taking Tylenol alternating with Motrin and ice to reduce pain and swelling. If you have any persistent new or worsening signs or symptoms follow- up with your PCP return to the ER as needed. I recommend follow-up with your PCP this week for the hyperglycemia as you may need better blood glycemic control Clinical Impressions Clinical Impression: Closed fracture of distal end of left fibula Qualifiers: Encounter type: initial encounter Fracture morphology: unspecified fracture morphology Qualified Code(s): S82.832A - Other fracture of upper and lower end of left fibula, initial encounter for closed fracture Hyperglycemia due to type 2 diabetes mellitus Qualifiers: Diabetes mellitus snf insulin use: with termination clerk use Qualified Code(s): E11.65 - Type 2 diabetes mellitus with hyperglycemia Print Language Print Language: Vincentian Discharge ED Provider: Miguel Zacarias General Adult HPI <ZAIN Moy - Last Filed: 10/14/24 21:05> General Chief complaint: Extremity Injury, Lower Stated complaint: AO 10/14/24 11:00 Injury left foot Time Seen by Provider: 10/14/24 18:37 Mode of Arrival: Wheelchair Source of Information: Patient Description of Symptoms (Recalled from ER Triage Doc. by RN): Pt states hse was leaving her PCP today around noon, when she stepped off curb and twisted her left ankle. Pt went home and was having trouble walking on left foot. Daughter has brought her here for imaging. History of Present Illness HPI narrative: Patient presents for a left ankle injury. Patient was leaving her PCPs office tripped twisting her left ankle. Patient felt immediate pop and has been unable to bear weight due to the pain. She denies any other injury did not strike her head did not lose consciousness. She denies any loss of motor or sensory other than pain. Related Data Home Medications ?Medication ?Instructions ?Recorded ?Confirmed aspirin 81 mg tablet 81 mg PO DAILY Heart disease 05/17/22 10/14/24 cetirizine 10 mg tablet 10 mg PO DAILY PRN allergies 05/17/22 10/14/24 fenofibric acid (choline) 135 mg 135 mg PO DAILY 04/3010/14/24 capsule,delayed release valsartan 320 1 tab PO DAILY 04/30/2407/09 mg-hydrochlorothiazide 25 mg tablet pen needle, diabetic 31 gauge x #1,200 ea 05/09/2407/28 (BD Ultra-Fine Mini Pen Needle) blood sugar diagnostic (Accu-Chek #10 ea 08/12/2408/14 Guide test strips) Previous Rx's ?Medication ?Instructions ?Recorded semaglutide 0.25 mg or 0.5 mg (2 0.25 mg (0.368 mL) SQ WEEKLY dm 03/06/24 mg/3 mL) subcutaneous pen injector #1.84 mL (Ozempic) isosorbide mononitrate 60 mg 60 mg PO DAILY #90 tabs 1 tablet,extended release 24 hr pen needle, diabetic 31 gauge x #100 ea 04/30/24 1/ metformin 500 mg tablet,extended See Rx Instructions . Route 06/28/24 release 24 hr .COMPLEX #120 tabs insulin glargine 100 unit/mL (3 20 unit (0.2 mL) SQ DA MISBAH 30 days 08/01/24 mL) subcutaneous pen (Lantus #6 mL Solostar U-100 Insulin) empagliflozin 25 mg tablet See Rx Instructions .Route 08/06/24 (Jardiance) .COMPLEX #90 tabs diclofenac sodium 1 % topical gel 2 g topical QID #100 grams 08/15/24 clopidogrel 75 mg tablet See Rx Instructions .Route 0 08/30/24 .COMPLEX #90 tabs hydroxocobalamin 1,000 mcg/mL 100 mcg (0.1 mL) IM QMON TH #0.1 mL 09/06/24 intramuscular solution insulin pump cart,auto,BT,G6/7 #5 ea 09/09/24 (Omnipod 5 G6-G7 Pods (Gen 5) subcutaneous cartridge) insulin pump cartridge,auto #1 ea 09/09/24 dose,BT,G6/G7 with controller subcutaneous (Omnipod 5 G6-G7 Intro Kit(Gen 5) subcutaneous cartridge and controller) pantoprazole 40 mg tablet,delayed See Rx Instructions .Route 09/09/24 release .COMPLEX #90 tabs atorvastatin 80 mg tablet (Lipitor) 80 mg PO HS #90 ta bs 09/13/24 carvedilol 25 mg tablet See Rx Instructions .Route 0 09/30/24 .COMPLEX #60 tabs nitroglycerin 0.4 mg sublingual 0.4 mg sublingual Q5MI TYING IN MACHINE OPERATOR PRN Chest 09/30/24 tablet Pain #25 tabs blood-glucose sensor (Dexcom G7 #3 ea 10/03/24 Sensor device) blood-glucose,shingle catcher,cont #1 ea 10/03/24 (Dexcom G7 Metal Crafts Teacher) Allergies Allergy/AdvReac Type Severity Reaction Status Date / Time No Known Allergies Allergy Verified 10/14/24 11:10 [facility] <ZAIN Moy - Last Filed: 10/14/24 21:05> [facility] Disclaimer: The information contained in this section may have been updated after the patient was seen, as this information can be updated by other users. Medical History GERD (gastroesophageal reflux disease) UTI (urinary tract infection) Diastolic dysfunction Dyspnea Hyperlipidemia Abnormal result of cardiovascular function study Abnormal electrocardiogram [ECG] [EKG] Typical angina Menopause Skin cancer small area on forehead Diabetes Hypertension Surgical History History of hysterectomy had tubes tied Hx of CABG Family History Other Cancer Family history of diabetes mellitus type II No significant family history Social History Smoking Status: Never smoker alcohol intake: never current occupational status: other Travel in the last 8 weeks?: None housing: house Have you lived/traveled outside [place] in past 30 days?: No Contact w/someone who lives/traveled outside [place] past 30 days?: No Exposure to someone with infectious disease in past 14 days?: No Do you have a fever (greater than 100.4 F or 38 C)?: No Have you tested positive for COVID-19?: No Exposed to someone with COVID-19 in past 14 days?: No Do you have a sore throat?: No Do you have a cough?: No Do you have any weakness?: No Do you have any diarrhea?: No Are you experiencing any unusual bleeding?: No Do you have any muscle aches/pain?: No Do you have any abdominal pain?: No Are you experiencing loss of taste or smell?: No Other Medical History Have you received the Flu Vaccine for this season: No Have you received the Pneumonia Vaccine: Yes <ZAIN Moy - Last Filed: 10/14/24 21:05> ROS Obtained: Yes Systems reviewed as appropriate & no additional complaints except as documented Physical Exam <ZAIN Moy - Last Filed: 10/14/24 21:05> General General appearance: alert and in no apparent distress Head Head exam: atraumatic and normal inspection Eye Eye exam: Present normal appearance, PERRL and EOMI ENT ENT exam: Present normal exam, normal oropharynx and mucous membranes moist Neck Neck exam: Present normal inspection, full ROM and trachea midline; Absent lymphadenopathy Chest Chest inspection: Present normal inspection and symmetric chest wall rise Respiratory Respiratory exam: Present normal lung sounds bilaterally; Absent accessory muscle use Cardiovascular Cardiovascular exam: Present regular rate, normal rhythm, normal heart sounds, +S1 and +S2 Abdominal Exam Abdominal exam: Present soft and normal bowel sounds; Absent tenderness, guarding or rebound Extremities Exam Extremities exam: Present normal inspection and full ROM Neurological Exam Neurological exam: Present alert, oriented X3 and CN II-XII intact Psychiatric Psychiatric exam: Present normal affect and normal mood Skin Skin exam: Present warm, dry and normal color Lymphatic Lymphatic Findings: no adenopathy Medical Decision Making <ZAIN Moy - Last Filed: 10/14/24 21:05> Medical Records Medical records reviewed: Yes I reviewed the patient's medical records. Screening: Per USPSTF and CDC recommendations, given the prevalence of disease in our region, it is our hospital?s policy to screen for HIV and viral Hepatitis for all patients aged 18 and over and those with ongoing risk factors. Gunner Inquiry Pt receiving controlled substance: No Vital Signs: 10/14/24 16:49 10/14/24 18:44 10/14/24 20:46 Temperature 98.2 F 98.1 F 98.0 F Temperature Source Oral Oral Oral Pulse Rate 77 88 Pulse Rate [Left] 89 Respiratory Rate 16 18 15 Blood Pressure 126/103 H 116/55 L Blood Pressure [Right Arm] 153/78 H Blood Pressure Mean [Right Arm] 103 Blood Pressure Source Automatic Cuff Blood Pressure Source [Right Arm] Automatic Cuff Blood Pressure Position Supine Blood Pressure Position [Right Arm] Sitting 02 Sat by Pulse Oximetry 99 98 Oxygen Delivery Method Room Air Room Air Room Air Orders (Tests/Meds): ED MEDICATIONS Discontinued Medications Generic Name Dose Route Start Last Admin Trade Name Freq PRN Reason Stop Dose Admin Insulin Human Lispro 20 unit 10/14/24 20:11 10/14/24 20:23 Humalog 100 Units/Ml 10ml Vial (Ssi) SUBCUT 10/14/24 20:12 20 unit ONCE ONE Administration ORDERS Category Date Time Status Ankle XR - Left minimum 3 Views [XR ankle LT min 3V] Exams 10/14/24 17:30 Completed Stat Foot XR left minimum 3 views [XR foot LT min 3V] Stat Exams 10/14/24 17:30 Completed Medical Decision Narrative: In summary patient is a 78-year-old female who presents to the emergency department for evaluation of left ankle injury. Patient is hemodynamically stable upon arrival, afebrile. Physical exam is remarkable for swelling and ecchymosis and pain at the lateral malleolus of the left foot. She is neurovascularly intact distally with good cap refill palpable DP and PT pulses. Differential diagnosis includes sprain versus fracture. Initial workup will be conducted with plain film x-rays. Initial interventions include ice pack. initial workup reviewed by me and my informal interpretation of her plain film x-ray shows a distal fibula fracture minimally displaced. Please see final read for formal interpretation. Given this patient is appropriate for discharge with Ortho boot and crutches and weightbearing as tolerated and follow-up with orthopedics. Patient given recommendations to continue rest ice along with Tylenol and ibuprofen for pain and swelling. Patient verbalized understanding. medical laboratory technician attempted to crutch train patient was too unsteady with crutches. Patient also seemed to be unsteady. We then made a phone call to [facility] and that they are going to bring her a walker. Patient also felt shaky and a fingerstick blood sugar was taken that showed her sugar was over 400. Patient has not eaten today nor has she taken her long-acting insulin that she takes in the evening. I have ordered 20 units of subcu insulin and provided her sandwich. She felt much better afterwards. Thus now patient is appropriate for discharge with a walker, walking boot and referral to orthopedics and referral back to her PCP for her hyperglycemia for better glycemic control. Patient's daughter was present and verbalized understanding agreement. <Miguel Zacarias MD - Last Filed: 10/14/24 23:37> Vital Signs: 10/14/24 16:49 10/14/24 18:44 10/14/24 20:46 Temperature 98.2 F 98.1 F 98.0 F Temperature Source Oral Oral Oral Pulse Rate 77 88 Pulse Rate [Left] 89 Respiratory Rate 16 18 15 Blood Pressure 126/103 H 116/55 L Blood Pressure [Right Arm] 153/78 H Blood Pressure Mean [Right Arm] 103 Blood Pressure Source Automatic Cuff Blood Pressure Source [Right Arm] Automatic Cuff Blood Pressure Position Supine Blood Pressure Position [Right Arm] Sitting 02 Sat by Pulse Oximetry 99 98 Oxygen Delivery Method Room Air Room Air Room Air Orders (Tests/Meds): ED MEDICATIONS Discontinued Medications Generic Name Dose Route Start Last Admin Trade Name Indra PRN Reason Stop Dose Admin Insulin Human Lispro 20 unit 10/14/24 20:11 10/14/24 20:23 Humalog 100 Units/Ml 10ml Vial (Ssi) SUBCUT 10/14/24 20:12 20 unit ONCE ONE Administration ORDERS Category Date Time Status Ankle XR - Left minimum 3 Views [XR ankle LT min 3V] Exams 10/14/24 17:30 Completed Stat Foot XR left minimum 3 views [XR foot LT min 3V] Stat Exams 10/14/24 17:30 Completed Medical Decision Narrative: In summary patient is a 78-year-old female who presents to the emergency department for evaluation of left ankle injury. Patient is hemodynamically stable upon arrival, afebrile. Physical exam is remarkable for swelling and ecchymosis and pain at the lateral malleolus of the left foot. She is neurovascularly intact distally with good cap refill palpable DP and PT pulses. Differential diagnosis includes sprain versus fracture. Initial workup will be conducted with plain film x-rays. Initial interventions include ice pack. initial workup reviewed by me and my informal interpretation of her plain film x-ray shows a distal fibula fracture minimally displaced. Please see final read for formal interpretation. Given this patient is appropriate for discharge with Ortho boot and crutches and weightbearing as tolerated and follow-up with orthopedics. Patient given recommendations to continue rest ice along with Tylenol and ibuprofen for pain and swelling. Patient verbalized understanding. medical laboratory technician attempted to crutch train patient was too unsteady with crutches. Patient also seemed to be unsteady. We then made a phone call to [facility] and that they are going to bring her a walker. Patient also felt shaky and a fingerstick blood sugar was taken that showed her sugar was over 400. Patient has not eaten today nor has she taken her long-acting insulin that she takes in the evening. I have ordered 20 units of subcu insulin and provided her sandwich. She felt much better afterwards. Thus now patient is appropriate for discharge with a walker, walking boot and referral to orthopedics and referral back to her PCP for her hyperglycemia for better glycemic control. Patient's daughter was present and verbalized understanding agreement. I was consulted by the JAQUELINE, and we discussed the complexity of the problems being addressed.I approved the treatment and management plan for this patient?s care in the Emergency Department, thus performing a substantive portion of the medical decision making.Signed, Miguel Zacarias MD [facility] <ZAIN Moy - Last Filed: 10/14/24 21:05> Critical Care Time Critical Care Time: No
[2024-10-14 18:44] VITALS: BP 126/103; PULSE 77; RESP 18; TEMP 36.7; O2SAT 98
--- NOTE | 2024-10-14 20:01 | PC.NURSE ---
patient fitted for crutches and walking boot, attempting to discharge patient when relative at the bedside becomes upset stating she can barely walk on 2 feet let alone 2, she can't use crutches thats an accident waiting to happen ED provider aware and to go discuss POC again with patient and family. Staff attempting to contact [employer] for possibility of delivering a walker.
--- NOTE | 2024-10-14 20:08 | PC.NURSE ---
pts glucose was checked. bgl is 440
[2024-10-14] MEDS: humaLOG 100 UNITS/ML 10ML VIAL (SSI) 20 UNIT SUBCUT (20:23)
[2024-10-14 20:46] VITALS: BP 116/55; PULSE 88; RESP 15; TEMP 36.7; O2SAT 92
== END 2024-10-14 20:53 | disposition home or self-care (01) ==
PROVIDERS: Emergency Provider Emergency Medicine; PCP Family Medicine
DX: S82.432A Displaced oblique fracture of shaft of left fibula, initial encounter for closed fracture (principal); E11.65 Type 2 diabetes mellitus with hyperglycemia; W10.1XXA Fall (on)(from) sidewalk curb, initial encounter
CPT/HCPCS: 73610; 73630; 99283

== ENCOUNTER 2024-10-21 11:17 | Outpatient (CLI) | payer MEDICARE, SELFPAY ==
--- NOTE | 2024-10-21 11:21 | XR_ITS ---
FINAL REPORT CLINICAL HISTORY: left ankle fx FINDINGS: LEFT ANKLE Three views demonstrate an oblique, mildly displaced fracture of the distal fibula. Mortise is intact. There is a metallic density at the medial aspect of the distal tibia likely related to foreign body. Soft tissue swelling is noted. IMPRESSION: Oblique, mildly displaced fracture of the distal fibula. Metallic density in the medial aspect of the tibia likely related to foreign body. Reviewed, Interpreted and Dictated by Miller Duffy MD Transcribed by Zahra Ontiveros Authenticated and [facility]
--- OUTSIDE RECORDS SUMMARY | 2024-10-21 11:22 | XMS_ITS | Encounter Summary ---
Author Organization [facility] Address [address] [place] [address] Care Team Providers Care Drop Wire Builder Name Role Phone Unavailable Primary Care Provider Unavailabl e Reason for Referral * Consultation (Routine) - Closed Specialty Diagnoses / Procedures Referred By Conttremaine t Referred To Contact Behavioral Health Diagnoses Altered mental status, unspecified altered mental status type Comfort Garcia [address] [address] Phone: tel: Gloria Trivedi, MS [address] [place] [address] Phone: tel: fax: Referral ID Status Reason Start Date Expiration Date V isits Requested Visits Authorized [id number] Closed Specialty Services Required 08/27/2024 08/27/2025 1 1 Electronically signed by [facility], Provider Not In The System, at 08/27/2024 9:06 AM EDT Encounter Details Date Type Department Care Team (Late st Contact Info) Description 08/27/2024 Outside Orders [facility] Central Scheduling [address] [place] [address] Comfort Garcia [address] [place] [address] Altered mental status, unspecified altered mental status type (Primary Dx) Social History Tobacco Use Types Packs/Day Years Used Date Smoking Tobacco: Never Assessed Comments Unknown Sex and Gender Information Value Date Recorded Sex Assigned at Not on file Legal Sex Female 7:20 PM CDT Gender Identity Not on file Sexual Orientation Not on file documented as of this encounter Plan of Treatment Scheduled Referrals Name Type Priority Associated Diagnoses Orde r Schedule Ambulatory referral to Behavioral Health Outpatient Referral Routine Altered mental status, unspecified altered mental status type Expected: 08/27/2024, Expires: 08/27/2025 documented as of this encounter Visit Diagnoses Diagnosis Altered mental status, unspecified altered mental status type- Primary documented in this encounter
--- OUTSIDE RECORDS SUMMARY | 2024-10-21 11:22 | XMS_ITS | Referral Summary ---
Author Organization [facility] Address [address] [place] [address] Care Team Providers Care Door And Arrival Attendant Name Role Phone Unavailable Primary Care Provider Unavailabl e Encounters * This document contains information received from the source organization and may not represent a complete record from that organization. Date Type Department Care Team Description 08/27/2024 Outside Orders [facility] Central Scheduling [address] [place] [address] Comfort Garcia Altered mental status, unspecified altered mental status type (Primary Dx) from Last 3 Months Social History Tobacco Use Types Packs/Day Years Used Date Smoking Tobacco: Never Assessed Comments Unknown Sex and Gender Information Value Date Recorded Sex Assigned at Not on file Legal Sex Female 7:20 PM CDT Gender Identity Not on file Sexual Orientation Not on file Plan of Treatment Not on file Insurance [employer] MEDICARE HMO
--- OUTSIDE RECORDS SUMMARY | 2024-10-21 11:22 | XMS_ITS | Clinical Summary ---
Author Organization [facility] Address [address] [place] [address] Care Team Providers Care Wire Temperer Name Role Phone Unavailable Primary Care Provider Unavailabl e Encounters * This document contains information received from the source organization and may not represent a complete record from that organization. Date Type Department Care Team Description 08/27/2024 Outside Orders [facility] Central Scheduling [address] [place] [address] Comfort Garcia Altered mental status, [...] Orientation Not on file Plan of Treatment Health Maintenance Due Date Last Done Comments DXA SCAN 1945 Depression Screening (12+) 1959 Tobacco Cessation Counseling and Screening (12+) 1959 Hepatitis C Screening 11/09/1965 DTAP/TDAP/TD VACCINES (1 - Tdap) 11/09/1966 Shingles Vaccine (Zoster) (1 of 2) 11/09/1997 Medicare Initial AWV [id number] 05/16/2018 Pneumococcal 50+ years (2 of 2 - PCV) 07/25/2020 Respiratory Syncytial Virus (RSV) Adult or (1 - 1-dose 75+ series) 11/09/2022 COVID-19 VACCINE ( - season) 2024 03/23/2021, 06/22/2020, 05/20/2020 Falls Risk Screening 05/15/2024 Influenza Vaccine (Season Ended) 2025 Insurance [employer] MEDICARE HMO
== END 2024-10-21 23:59 | disposition home or self-care (01) ==
LOC: RAD 11:18
PROVIDERS: PCP Family Medicine; Visit Provider Physician Assistant
DX: S82.832A Other fracture of upper and lower end of left fibula, initial encounter for closed fracture (principal); R93.6 Abnormal findings on diagnostic imaging of limbs
CPT/HCPCS: 73610

== ENCOUNTER 2024-10-24 20:20 | Observation (INO) | payer MEDICARE, SELFPAY ==
[2024-10-24 20:23] VITALS: BP 136/57; PULSE 96; RESP 16; TEMP 37.1; O2SAT 96; BMI 30.9
--- NOTE | 2024-10-24 20:23 | CT_ITS ---
PROCEDURE INFORMATION: Exam: CT Cervical Spine Without Contrast Exam date and time: 10/24/2024 8:59 PM Age: 78 years old Clinical indication: Neck pain; Additional info: Altered mental status TECHNIQUE: Imaging protocol: Computed tomography of the cervical spine without contrast. Radiation optimization: All CT scans at this facility use at least one of these dose optimization techniques: automated exposure control; mA and/or kV adjustment per patient size (includes targeted exams where dose is matched to clinical indication); or iterative reconstruction. COMPARISON: CT ANGIO NECK 04/29/2024 3:59 PM FINDINGS: Bones: No acute fracture. Normal alignment. No significant disc bulge or herniation. No severe spinal canal stenosis. No significant neural foraminal narrowing. Mild diffuse facet hypertrophy right greater than left Lungs: Lung apices are normal. Soft tissues: Unremarkable. IMPRESSION: No acute cervical spine fracture.
--- NOTE | 2024-10-24 20:23 | XR_ITS ---
PROCEDURE INFORMATION: Exam: XR Chest Exam date and time: 10/24/2024 8:52 PM Age: 78 years old Clinical indication: Other: AMS; Additional info: Altered mental status TECHNIQUE: Imaging protocol: Radiologic exam of the chest. Views: 1 view. COMPARISON: CR XR CHEST PORTABLE 04/29/2024 4:00 PM FINDINGS: Lungs: Unremarkable. No consolidation. Pleural spaces: Unremarkable. No pleural effusion. No pneumothorax. Heart/Mediastinum: Unremarkable. No cardiomegaly. Bones/joints: Unremarkable. IMPRESSION: No acute findings.
--- NOTE | 2024-10-24 20:25 | CT_ITS ---
PROCEDURE INFORMATION: Exam: CT Head Without Contrast Exam date and time: 10/24/2024 8:57 PM Age: 78 years old Clinical indication: Altered mental status/memory loss TECHNIQUE: Imaging protocol: Computed tomography of the head without contrast. Radiation optimization: All CT scans at this facility use at least one of these dose optimization techniques: automated exposure control; mA and/or kV adjustment per patient size (includes targeted exams where dose is matched to clinical indication); or iterative reconstruction. COMPARISON: MR HEAD/BRAIN WO CON 04/30/2024 12:28 PM FINDINGS: Brain: Right temporal sub cortical and cortical encephalomalacia. Multifocal lacunar pattern infarction seen in basal ganglia Cerebral ventricles: No ventriculomegaly. Paranasal sinuses: Visualized sinuses are unremarkable. No fluid levels. Mastoid air cells: Visualized mastoid air cells are well aerated. Orbital cavities: Bilateral lens replacement. Bones: Unremarkable. No acute fracture. Soft tissues: The posterior small scalp laceration. Vasculature: Heavily calcified distal vertebral arteries incidentally noted Other findings: Mild generalized atrophy IMPRESSION: 1. Left posterior small scalp hematoma 2. No visible acute intracranial abnormality.
--- NOTE | 2024-10-24 20:29 | HMH.EDGENADL ---
Discharge Plan Disposition Patient Disposition: Admitted Condition: Fair Clinical Impressions Clinical Impression: Rhabdomyolysis, General weakness, Fall Discharge ED Provider: Arianna Sánchez General Adult HPI General Chief complaint: Weakness Stated complaint: fall Time Seen by Provider: 10/24/24 20:23 History of Present Illness HPI narrative: This patient is a 78-year-old female with a history of type 2 diabetes, CAD status post CABG, hypertension, hyperlipidemia, GERD, recent left ankle fracture (10/14/2024), daily use of aspirin presented to the emergency department for evaluation with concern for general weakness, fall at home, altered mental status. According to EMS, the patient had a fall today, she denied any injury related to this but family called because they were concerned that she had some altered mental status. Her daughter who last spoke to her on Monday noted that she had been confused for several days according to EMS. Patient is alert and oriented x 4 on my assessment and states that she did not necessarily have a fall, she states that she is just too weak to get up so she slid into the floor and then laid herself back. She notes that she has been having a very hard time getting around in her left ankle walking boot, and she states that she is just too weak to get around on it. She denies any fevers, chills, cough, congestion, chest pain, shortness of breath, abdominal pain, vomiting, changes bowel movements, or urinary symptoms. She does have slowed/slurred speech. Daughter arrives and states that the speech deficit is new, but she has not talked to her since Monday. Related Data Home Medications ?Medication ?Instructions ?Recorded ?Confirmed aspirin 81 mg tablet 81 mg PO DAILY Heart disease 05/17/22 10/21/24 cetirizine 10 mg tablet 10 mg PO DAILY PRN allergies 05/17/22 10/21/24 fenofibric acid (choline) 135 mg 135 mg PO DAILY 04/30/24 10/21/24 capsule,delayed release valsartan 320 1 tab PO DAILY 04/30/24 10/21/24 mg-hydrochlorothiazide 25 mg tablet blood sugar diagnostic (Accu-Chek #10 ea 08/12/24 10/21/24 Guide test strips) Previous Rx's ?Medication ?Instructions ?Recorded semaglutide 0.25 mg or 0.5 mg (2 0.25 mg (0.368 mL) SQ WEEKLY dm 03/06/24 mg/3 mL) subcutaneous pen injector #1.84 mL (Ozempic) isosorbide mononitrate 60 mg 60 mg PO DAILY #90 tabs 03/12/24 tablet,extended release 24 hr pen needle, diabetic 31 gauge x #100 ea 04/30/2405/18 insulin glargine 100 unit/mL (3 20 unit (0.2 mL) SQ DAILY 30 days 08/01/24 mL) subcutaneous pen (Lantus #6 mL Solostar U-100 Insulin) empagliflozin 25 mg tablet See Rx Instructions .Route 08/06/24 (Jardiance) .COMPLEX #90 tabs diclofenac sodium 1 % topical gel 2 g topical QID #100 grams 08/15/24 clopidogrel 75 mg tablet See Rx Instructions .Route 08/30/24 .COMPLEX #90 tabs hydroxocobalamin 1,000 mcg/mL 100 mcg (0.1 mL) IM QMONTH #0.1 mL 09/06/24 intramuscular solution insulin pump cart,auto,BT,G6/7 #5 ea 09/09/24 (Omnipod 5 G6-G7 Pods (Gen 5) subcutaneous cartridge) insulin pump cartridge,auto #1 ea 09/09/24 dose,BT,G6/G7 with controller subcutaneous (Omnipod 5 G6-G7 Intro Kit(Gen 5) subcutaneous cartridge and controller) pantoprazole 40 mg tablet,delayed See Rx Instructions .Route 09/09/24 release .COMPLEX #90 tabs atorvastatin 80 mg tablet (Lipitor) 80 mg PO HS #90 tabs 09/13/24 carvedilol 25 mg tablet See Rx Instructions .Route 09/30/24 .COMPLEX #60 tabs nitroglycerin 0.4 mg sublingual 0.4 mg sublingual Q5MINP PRN Chest 09/30/24 tablet Pain #25 tabs blood-glucose sensor (Dexcom G7 #3 ea 10/03/24 Sensor device) blood-glucose,foot roentgenologist,cont #1 ea 10/03/24 (Dexcom G7 Military Equipment Specialist) insulin lispro-aabc 100 unit/mL 1 unit (0.01 mL) SQ DAILY #10 mL 10/18/24 subcutaneous solution pen needle, diabetic 31 gauge x #100 ea 10/18/2407/28 metformin 500 mg tablet,extended See Rx Instructions .Route 10/23/24 release 24 hr .COMPLEX #120 tabs Allergies Allergy/AdvReac Type Severity Reaction Status Date / Time No Known Allergies Allergy Verified 10/21/24 10:39 [facility] Disclaimer: The information contained in this section may have been updated after the patient was seen, as this information can be updated by other users. Medical History GERD (gastroesophageal reflux disease) UTI (urinary tract infection) Diastolic dysfunction Dyspnea Hyperlipidemia Abnormal result of cardiovascular function study Abnormal electrocardiogram [ECG] [EKG] Typical angina Menopause Skin cancer Diabetes Hypertension Surgical History History of hysterectomy Hx of CABG Family History Other Cancer Family history of diabetes mellitus type II No significant family history Social History Smoking Status: Never smoker alcohol intake: never current occupational status: other Travel in the last 8 weeks?: None housing: house Have you lived/traveled outside US in past 30 days?: No Contact w/someone who lives/traveled outside US past 30 days?: No Exposure to someone with infectious disease in past 14 days?: No Do you have a fever (greater than 100.4 F or 38 C)?: No Have you tested positive for COVID-19?: No Exposed to someone with COVID-19 in past 14 days?: No Do you have a sore throat?: No Do you have a cough?: No Do you have any weakness?: No Do you have any diarrhea?: No Are you experiencing any unusual bleeding?: No Do you have any muscle aches/pain?: No Do you have any abdominal pain?: No Are you experiencing loss of taste or smell?: No Other Medical History Have you received the Flu Vaccine for this season: No Have you received the Pneumonia Vaccine: Yes ROS Obtained: Yes All systems reviewed & no additional complaints except as documented Physical Exam General General appearance: alert, in no apparent distress and obese Comment: Very generally weak Head Head exam: atraumatic and normocephalic Eye Eye exam: Present normal appearance, PERRL and EOMI ENT ENT exam: Present normal exam, normal oropharynx, mucous membranes moist and normal external ear exam Neck Neck exam: Present normal inspection, full ROM and trachea midline; Absent tenderness Chest Chest inspection: Present normal inspection and symmetric chest wall rise; Absent tenderness Respiratory Respiratory exam: Present normal lung sounds bilaterally; Absent respiratory distress, wheezes, stridor or accessory muscle use Cardiovascular Cardiovascular exam: Present regular rate and normal rhythm Abdominal Exam Abdominal exam: Present soft; Absent distention, tenderness or guarding Extremities Exam Extremities exam: Present normal capillary refill, edema and other (Significant bilateral lower extremity edema/anasarca; left ankle is in a walking boot and is tender to palpation. No significant redness, warmth, or skin changes to the lower extremities); Absent calf tenderness Back Exam Back exam: Present normal inspection and full ROM; Absent tenderness Neurological Exam Neurological exam: Present alert, oriented X3, CN II-XII intact and other (Very generally weak without any obvious focal deficit); Absent motor sensory deficit Psychiatric Psychiatric exam: Present flat affect Skin Skin exam: Present warm and dry Medical Decision Making Medical Records Medical records reviewed: Yes I reviewed the patient's medical records. Screening: Per USPSTF and CDC recommendations, given the prevalence of disease in our region, it is our hospital?s policy to screen for HIV and viral Hepatitis for all patients aged 18 and over and those with ongoing risk factors. Gunner Inquiry Pt receiving controlled substance: No Vital Signs: 10/24/24 20:23 10/24/24 20:41 10/24/24 21:30 Temperature 98.7 F Temperature Source Oral Pulse Rate 84 Pulse Rate [Radial] 96 H Respiratory Rate 16 19 23 Blood Pressure 143/61 H 119/100 H Blood Pressure [Right Arm] 136/57 L Blood Pressure Mean 105 Blood Pressure Mean [Right Arm] 83 Blood Pressure Position Blood Pressure Position [Right Arm] Sitting 02 Sat by Pulse Oximetry 96 97 Oxygen Delivery Method Room Air Room Air 10/24/24 21:53 10/24/24 22:41 Temperature 98.7 F Temperature Source Oral Pulse Rate 94 H 92 H Pulse Rate [Radial] Respiratory Rate 21 18 Blood Pressure 157/60 H 149/72 H Blood Pressure [Right Arm] Blood Pressure Mean Blood Pressure Mean [Right Arm] Blood Pressure Position Sitting Blood Pressure Position [Right Arm] 02 Sat by Pulse Oximetry 96 Oxygen Delivery Method Room Air Lab Data Lab results reviewed: Yes I reviewed the patient's lab results. Lab Results 10/24/24 20:50: WBC 11.9 H, RBC 3.66 L, Hgb 10.1 L, Hct 30.6 L, MCV 83.6, MCH 27.6, MCHC 33.0, RDW 15.7, Plt Count 365, MPV 11.8 H, Neut % (Auto) 81.8 H, Lymph % (Auto) 8.7 L, [place] % (Auto) 7.9, Eos % (Auto) 0.8, Baso % (Auto) 0.3, Neut # (Auto) 9.7 H, Lymph # (Auto) 1.0, [place] # (Auto) 0.9, Eos # (Auto) 0.1, Baso # (Auto) 0.0, PT 11.0, INR 0.99, VBG pH 7.40, VBG pCO2 42.1, VBG pO2 40.5 H, VBG HCO3 25.3, VBG Total CO2 26.6, VBG O2 Saturation 67.7, VBG Base Excess 0.4, VBG Lactic Acid 2.1 H, Sodium 134 L, Potassium 3.9, Chloride 97 L, Carbon Dioxide 28, Anion Gap 12.9, BUN 55 H, Creatinine 0.90, Estimated Creat Clear 52, Estimated GFR 61, Est GFR ( Amer) 74, Glucose 354 H, Calcium 10.8 H, Phosphorus 4.0, Magnesium 2.3, Total Bilirubin 1.2, AST 293 H, ALT 97 H, Alkaline Phosphatase 80, Total Creatine Kinase 5959 H*, Troponin I 0.02, NT-Pro-B Natriuret Pep 367, Total Protein 7.3, Albumin 3.9, Globulin 3.4 H, Albumin/Globulin Ratio 1.1, TSH 1.80, Free T4 1.89, Plasma/Serum Alcohol < 10, HIV Ag/Ab Combo Qual Negative 10/24/24 21:18: Ammonia < 9 L 10/24/24 20:50 10/24/24 20:50 Orders (Tests/Meds): ED MEDICATIONS Generic Name Dose Route Start Last Admin Trade Name Freq PRN Reason Stop Dose Admin Acetaminophen 650 mg 10/24/24 22:31 Acetaminophen 325mg Tab PO 11/23/24 22:30 Q4HP PRN Fever or Mild Pain (1-3) Heparin Sodium (Porcine) 5,000 unit 10/25/24 09:00 Heparin Sodium 5,000 Unit/Ml Vial SQ 11/24/24 08:59 BID PENNY Lactated Ringer's 500 mls @ 250 mls/hr 10/24/24 22:09 10/24/24 22:18 Lactated Ringer's 1000 Ml Bag IV 10/25/24 00:08 250 mls/hr .Q2H ONE Administration Sodium Chloride 1,000 mls @ 75 mls/hr 10/24/24 22:45 Sod Chlor 0.9% 1000ml Bag IV 11/23/24 22:44 .[id number] PENNY Ondansetron HCl 4 mg 10/24/24 22:31 Ondansetron 4mg/2ml Vial IV 11/23/24 22:30 Q8HP PRN Nausea ORDERS Category Date Time Status CT cervical spine wo con Stat Cat Scan 10/24/24 20:[address] head/brain wo con Stat Cat Scan 10/24/24 20:25 Completed XR chest portable Stat Exams 10/24/24 20:23 Completed Ammonia Stat Lab 10/24/24 21:18 Completed BNP [NT Pro Brain Natriuretic Pep.] Stat Lab 10/24/24 20:50 Completed CK [Creatine Kinase] AMLAB Lab 10/25/24 06:00 Ordered Complete Blood Count Auto Diff AMLAB Lab 10/25/24 06:00 Ordered Complete Blood Count Auto Diff Stat Lab 10/24/24 20:50 Completed Comprehensive Metabolic Panel AMLAB Lab 10/25/24 06:00 Ordered Comprehensive Metabolic Panel Stat Lab 10/24/24 20:50 Completed Creatine Kinase Stat Lab 10/24/24 20:50 Completed Drug Screen,Urine Stat Lab 10/24/24 20:23 Ordered Ethyl Alcohol Stat Lab 10/24/24 20:50 Completed Free T4 (Free Thyroxine) Stat Lab 10/24/24 20:50 Completed HIV Combo Stat Lab 10/24/24 20:50 Completed Hepatitis C Ab Qual. W/ RFX Stat Lab 10/24/24 20:50 Received Magnesium Stat Lab 10/24/24 20:50 Completed PHOS [Phosphorous] Stat Lab 10/24/24 20:50 Completed Prothrombin Time INR Stat Lab 10/24/24 20:50 Completed Thyroid Stimulating Hormone Stat Lab 10/24/24 20:50 Completed Troponin I Q3H Lab 10/24/24 23:30 Ordered Troponin I Q3H Lab 10/25/24 02:30 Ordered Troponin I Stat Lab 10/24/24 20:50 Completed Urinalysis and Microscopic Stat Lab 10/24/24 20:55 Ordered Venous Blood Gas Stat RT 10/24/24 20:50 Completed ECG Data Tracing #1: I reviewed this ECG and interpreted as documented below: Sinus rhythm with a ventricular of [address] changes concerning for ischemia. Normal intervals ECG initial impression date: 10/24/24 ECG initial impression time: 20:40 Medical Decision Narrative: In summary, this patient is a 78-year-old female presenting to the Emergency Department for evaluation of altered mental status, general weakness, possible fall. Differential diagnoses considered include but are not limited to CVA, traumatic injury from fall, intracranial hemorrhage, CHF exacerbation, UTI, pneumonia, among others. Ruling out the most morbid conditions drove assessment. It should be noted patient's history includes type 2 diabetes, hypertension, hyperlipidemia, CAD status post CABG which may or may not be at goal therapy. This complicates all aspects of care by increasing patient's risk for morbidity. I reviewed patient's past medical records and noted evaluation and follow-up with orthopedics for this left ankle fracture. On exam, the patient has anasarca. She is very generally weak without any focal deficits. She does answer orientation questions properly but does have slowed and possibly slurred speech. Workup included broad lab evaluation to evaluate for underlying etiologies of altered mental status, including toxic, metabolic, infectious, and cardiac workups. I also obtained a CT head and C-spine given possible fall as well as x-ray of the chest. EKG was also obtained. I independently interpreted CT scan and x-ray prior to the radiologist read and noted no intracranial hemorrhage, no obvious fracture, no large focal dilatation concerning for pneumonia. Please see their read for final interpretation. Labs were obtained that demonstrated mild leukocytosis, mild anemia. She has mild hyponatremia as well. BUN is slightly elevated. AST is elevated greater than ALT, and CK is significantly elevated at 5959. Her kidney function is normal with a creatinine of 0.9. Urinalysis pending. I consider diagnosis of stroke as a cause of the patient's slurred speech and new onset weakness, however she presents outside of any sort of window for tPA/TNK or thrombectomy, so even if it is a stroke, there is not any intervention that she needs to be transferred for emergently. I do not see any obvious stroke on CT. For her acute rhabdomyolysis, I started the patient on IV fluids. I reexamined her and noted that she did not have any tight compartments in the setting of this recent fracture. I feel that she likely has rhabdomyolysis from being down on the ground for an extended period of time and also from walking abnormally related to the walking boot. She has not been getting around well at all and was down on the ground for an unknown period of time. Ultimately, feel she would benefit from admission for further evaluation and management. Patient was started on IV fluids at 250 mL an hour. I had an interactive discussion with the hospitalist who admitted her in stable condition. Critical Care Critical Care Time Critical Care Time: Yes Attestation: On 10/24/24, the high probability of a clinically significant, sudden or life threatening deterioration of the following system(s) required my full and direct attention, intervention and personal management. The time I documented below is in addition to time spent performing reported procedures but includes the following listed in this critical care notation. Total Time Total Critical Care Time: 35
--- OUTSIDE RECORDS SUMMARY | 2024-10-24 20:38 | XMS_ITS | Clinical Summary ---
Author Organization [facility] Address [address] [place] [address] Care Team Providers Care Photographic Artist Name Role Phone Unavailable Primary Care Provider Unavailabl e Encounters * This document contains information received from the source organization and may not represent a complete record from that organization. Date Type Department Care Team Description 08/27/[address] [facility] Central Scheduling [address] [place] [address] Comfort Garcia Altered mental status, [...]
--- OUTSIDE RECORDS SUMMARY | 2024-10-24 20:38 | XMS_ITS | Referral Summary ---
Author Organization [facility] Address [address] [place] [address] Care Team Providers Care Bolt Labeler Name Role Phone Unavailable Primary Care Provider Unavailabl e Encounters * This document contains information received from the source organization and may not represent a complete record from that organization. Date Type Department Care Team Description 08/27/2024 Outside Orders [facility] Central Scheduling [address] [place] [address] Comfort Garcia Altered mental status, [...] Plan of Treatment Not on file Insurance [facility] MEDICARE HMO
--- OUTSIDE RECORDS SUMMARY | 2024-10-24 20:38 | XMS_ITS | Encounter Summary ---
Author Organization [facility] Address [address] [place] [address] Care Team Providers Care Junior Accounting Clerk Name Role Phone Unavailable Primary Care Provider Unavailabl e Reason for Referral * Consultation (Routine) - Closed Specialty Diagnoses / Procedures Referred By Valdemar t Referred To Contact Behavioral Health Diagnoses Altered mental status, unspecified altered mental status type Comfort Garcia [address] [place] [address] Phone: tel: Gloria Trivedi, MS [address] [place] [address] Phone: tel: fax: Referral ID Status Reason Start Date Expiration Date V isits Requested Visits Authorized [id number] Closed Specialty Services Required 08/27/2024 08/27/2025 1 1 Encounter Details Date Type Department Care Team (Late st Contact Info) Description 08/27/2024 Outside Orders [facility] Central Scheduling [address] [place] [address] [place] [address] Altered mental status, unspecified altered mental status [...]
--- NOTE | 2024-10-24 20:39 | ECG_ITS ---
APPROVED REPORT Exam: Resting ECG HR:90 bpm ECG Measurements Heart Rate 90 AXES MA 155 P 54 QRSd 106 QRS 25 QT 358 T 13 QTc 405 Conclusion SINUS RHYTHM NONSPECIFIC ST & T-WAVE ABNORMALITY No STEMI Electronically signed by : MOY LEWIS, 10/24/2024 23:07:56
[2024-10-24 20:41] VITALS: BP 143/61; RESP 19
--- NOTE | 2024-10-24 20:47 | PC.NURSE ---
2 unsuccessful IV attempts, 3rd person to attempt IV placement and blood draw at this time.
--- NOTE | 2024-10-24 21:02 | PC.NURSE ---
resp contacted regarding the VBG that was sent to the lab at this time.
[2024-10-24 21:09] LABS: VBG Base Excess 0.4 mmol/L (-2.4-2.3); VBG HCO3 25.3 mmol/L (23-30); VBG Oxygen Saturation 67.7 % (50-70); VBG PCO2 42.1 mmol/L (35-51); VBG PO2 40.5 mmol/L (28-40); VBG Total CO2 26.6 mmol/L (23-27)
[2024-10-24 21:10] LABS: Lactate Venous 2.1 mmol/L (0.4-2.0)
[2024-10-24 21:11] LABS: Basophils % 0.3 % (0.1-2.0); Eosinophils # 0.1 Kmm3 (0.0-0.4); Eosinophils % 0.8 % (0.1-12.0); Hematocrit 30.6 % (37.0-47.0); Hemoglobin 10.1 g/dL (12.2-16.2); Immature Granulocytes # 0.06 10^3uL; Immature Granulocytes % 0.5 %; Lymphocytes % 8.7 % (10-50); Mean Corpuscular Hemoglobin 27.6 pg (27.0-31.2); Mean Corpuscular Volume 83.6 fl (81-99); Mean Platelet Volume 11.8 fl (7.4-10.4); Monocytes # 0.9 K/mm3 (0.1-1.0); Monocytes % 7.9 % (1.7-9.3); Neutrophils # 9.7 K/mm3 (1.8-7.8); Neutrophils % 81.8 % (37.0-80.0); Nucleated Red Blood Cells # 0 10^3/uL; Nucleated Red Blood Cells % 0 %; Platelet Count 365 K/mm3 (142-424); Red Blood Count 3.66 M/mm3 (4.20-5.40); Red Cell Distribution Width 15.7 % (11.5-17.5); White Blood Count 11.9 K/mm3 (4.8-10.8)
[2024-10-24 21:28] LABS: Albumin Level 3.9 g/dl (3.5-5.0); Chloride 97 mmol/L (98-107)
[2024-10-24 21:29] LABS: INR 0.99 (0.9-1.1); Potassium 3.9 mmoL/L (3.5-5.1); Sodium 134 mmol/L (136-145)
[2024-10-24 21:30] VITALS: BP 119/100; PULSE 84; RESP 23; O2SAT 97
[2024-10-24 21:31] LABS: Alanine Aminotransferase 97 U/L (12-78); Albumin/Globulin Ratio 1.1 (1.1-1.8); Alkaline Phosphatase 80 U/L (38-126); Anion Gap 12.9 mEq/L (5-15); Aspartate Amino Transferase 293 U/L (14-36); Bilirubin,Total 1.2 mg/dl (0.2-1.3); Blood Urea Nitrogen 55 mg/dl (7-17); Carbon Dioxide 28 mmol/L (22.0-30.0); Creatinine Clearance Estimated 52 mL/min (50-200); Estimated Glomerular Filt Rate 61 ml/min (>60); GFR (African American) 74 ML/MIN (>60); Globulin 3.4 g/dL (1.3-3.2); Total Protein,Serum 7.3 g/dl (6.3-8.2)
[2024-10-24 21:32] LABS: Calcium 10.8 mg/dl (8.4-10.2); Glucose 354 mg/dl (74-100); Magnesium 2.3 mg/dl (1.6-2.3)
[2024-10-24 21:33] LABS: Ammonia < 9 umol/L (9-30)
[2024-10-24 21:44] LABS: NT Pro Brain Natriuretic Pep. 367 pg/mL (0-450)
[2024-10-24 21:46] LABS: Troponin I 0.02 ng/ml (0.00-0.034)
[2024-10-24 21:51] LABS: Free T4 (Free Thyroxine) 1.89 ng/dl (0.78-2.19)
[2024-10-24 21:53] VITALS: BP 157/60; PULSE 94; RESP 21; O2SAT 96
[2024-10-24 21:55] LABS: Creatine Kinase 5959 U/L (30-135)
[2024-10-24 22:05] LABS: Ethyl Alcohol < 10 mg/dl (0-10)
[2024-10-24 22:15] LABS: HIV Combo NEGATIVE (Negative)
[2024-10-24] MEDS: LACTATED RINGERS 1000ML 500 ML 250 ML IV (22:18)
--- NOTE | 2024-10-24 22:35 | PC.NURSE ---
Awaiting admission orders before calling report to the floor.
--- NOTE | 2024-10-24 22:40 | PC.NURSE ---
report given to SEBASTIÁN Donahue
[2024-10-24 22:41] VITALS: BP 149/72; PULSE 92; RESP 18; TEMP 37.1; O2SAT 97
[2024-10-24] MEDS: 0.9 % SODIUM CHLORIDE 1000ML 1,000 ML 75 ML IV (22:45)
[2024-10-24 23:12] LABS: Microscopic, Urine URINE MICROSCOPIC (MICROSCOPIC)
[2024-10-24 23:13] VITALS: BP 131/106; PULSE 87; RESP 20; TEMP 37.1; O2SAT 97; BMI 29.2
[2024-10-24 23:13] LABS: Appearance,Urine CLEAR (Clear); Blood, Urine 2+ (Negative); Color,Urine YELLOW (Yellow); Glucose,Urine (UA) 2+ (Negative); Ketones,Urine TRACE (Negative); Leukocyte Esterase,Urine Negative (Negative); Nitrate,Urine Negative (Negative); Protein,Urine Negative (Negative); Specific Gravity, Urine 1.015 (1.005-1.030); Urobilinogen,Urine 0.2 EU/dl (0.2)
[2024-10-24 23:18] LABS: Hepatitis C Ab Qual. W/ RFX NEGATIVE (Negative)
--- NOTE | 2024-10-24 23:19 | PC.WOUNDNOTE ---
pictures 1 and 2- lt foot picture 3- buttock
[2024-10-24 23:22] LABS: Bilirubin,Urine Negative (Negative)
[2024-10-24 23:31] LABS: Amphetamine/Metha Screen,Urine Negative ng/ml (<1000)
[2024-10-24 23:32] LABS: Barbiturates Screen,Urine Negative ng/ml (<200)
[2024-10-24 23:33] LABS: Benzodiazepines Screen,Urine Negative ng/ml (<200)
--- NOTE | 2024-10-24 23:33 | PC.NURSE ---
med rec completed by external r/t patient ams
[2024-10-24 23:34] LABS: Cannabinoid Screen,Urine Negative ng/ml (<50)
[2024-10-24 23:35] LABS: Cocaine Screen,Urine Negative ng/ml (<300); Methadone Screen,Urine Negative ng/ml (<300)
[2024-10-24 23:36] LABS: Opiate Screen,Urine Negative ng/ml (<300); Phencyclidine Screen,Urine Negative ng/ml (<25)
[2024-10-24 23:43] LABS: RBC,Urine Occasional #/hpf (0-3)
[2024-10-24 23:44] LABS: Bacteria,Urine Trace /lpf; Squamous Epithelial Cell,Urine Occasional #/hpf (0-5)
--- NOTE | 2024-10-24 23:44 | P.HP_ITS ---
History of Present Illness *Admission Date: 10/24/24 *Reason for visit:: Falls *History of present illness: Patient is a 78-year-old female with past medical history of CAD diabetes mellitus hypertension and hyperlipidemia who presents to the hospital due to generalized weakness, recurrent falls. Patient mentions she has been having recurrent falls, and feels weak. Patient otherwise denied fevers chills diarrhea constipation dysuria. Patient was noted to have elevated CK level. [facility] Disclaimer: The information contained in this section may have been updated after the gerard rodriguez was seen, as this information can be updated by other users. Medical History GERD (gastroesophageal reflux disease) UTI (urinary tract infection) Diastolic dysfunction Dyspnea Hyperlipidemia Abnormal result of cardiovascular function study Abnormal electrocardiogram [ECG] [EKG] Typical angina Menopause Skin cancer Diabetes Hypertension Surgical History History of hysterectomy Hx of CABG Family History Other Cancer Family history of diabetes mellitus type II No significant family history Social History Smoking Status: Never smoker alcohol intake: never current occupational status: other Travel in the last 8 weeks?: None housing: house Have you lived/traveled outside US in past 30 days?: No Contact w/someone who lives/traveled outside US past 30 days?: No Exposure to someone with infectious disease in past 14 days?: No Do you have a fever (greater than 100.4 F or 38 C)?: No Have you tested positive for COVID-19?: No Exposed to someone with COVID-19 in past 14 days?: No Do you have a sore throat?: No Do you have a cough?: No Do you have any weakness?: No Do you have any diarrhea?: No Are you experiencing any unusual bleeding?: No Do you have any muscle aches/pain?: No Do you have any abdominal pain?: No Are you experiencing loss of taste or smell?: No Other Medical History Have you received the Flu Vaccine for this season: No Have you received the Pneumonia Vaccine: Yes Review of Systems Review of Systems Review of systems:: pertinent systems reviewed and negative unless documented below Meds Home Medications and Allergies Home Medications ?Medication ?Instructions ?Recorded ?Confirmed ?Type aspirin 81 mg tablet 81 mg PO DAILY Heart disease 05/17/22 10/24/24 History cetirizine 10 mg tablet 10 mg PO DAILY PRN allergies 05/17/22 10/24/24 History semaglutide 0.25 mg or 0.5 mg (2 0.25 mg (0.368 mL) SQ WEEKLY dm 03/06/24 10/24/24 Rx mg/3 mL) subcutaneous pen injector #1.84 mL (Ozempic) isosorbide mononitrate 60 mg 60 mg PO DAILY #90 tabs 1 10/24/24 Rx tablet,extended release 24 hr fenofibric acid (choline) 135 mg 135 mg PO DAILY 04/3010/24/24 History capsule,delayed release pen needle, diabetic 31 gauge x #100 ea 04/30/2410/24 Rx / valsartan 320 1 tab PO DAILY 04/30/2410/13 History mg-hydrochlorothiazide 25 mg tablet insulin glargine 100 unit/mL (3 20 unit (0.2 mL) SQ DA MISBAH 30 days 08/01/24 10/24/24 Rx mL) subcutaneous pen (Lantus #6 mL Solostar U-100 Insulin) blood sugar diagnostic (Accu-Chek #10 ea 08/12/2410/13 History Guide test strips) diclofenac sodium 1 % topical gel 2 g topical QID #100 grams 08/15/24 10/24/24 Rx clopidogrel 75 mg tablet See Rx Instructions .Route 0 08/30/24 10/24/24 Rx .COMPLEX #90 tabs hydroxocobalamin 1,000 mcg/mL 100 mcg (0.1 mL) IM QMON TH #0.1 mL 09/06/24 10/24/24 Rx intramuscular solution insulin pump cart,auto,BT,G6/7 #5 ea 09/09/24 10/24/24 Rx (Omnipod 5 G6-G7 Pods (Gen 5) subcutaneous cartridge) insulin pump cartridge,auto #1 ea 09/09/24 10/24/24 Rx dose,BT,G6/G7 with controller subcutaneous (Omnipod 5 G6-G7 Intro Kit(Gen 5) subcutaneous cartridge and controller) pantoprazole 40 mg tablet,delayed See Rx Instructions .Route 09/09/24 10/24/24 Rx release .COMPLEX #90 tabs atorvastatin 80 mg tablet (Lipitor) 80 mg PO HS #90 ta bs 09/13/24 10/24/24 Rx nitroglycerin 0.4 mg sublingual 0.[address] PRN Chest 09/30/24 10/24/24 Rx tablet Pain #25 tabs blood-glucose sensor (Dexcom G7 #3 ea 10/03/24 5 Rx Sensor device) blood-glucose,geophysics scientist,cont #1 ea 10/03/24 10/24/24 Rx (Dexcom G7 Slab Lifting Engineer) insulin lispro-aabc 100 unit/mL 1 unit (0.01 mL) SQ DA MISBAH #10 mL 10/18/24 10/24/24 Rx subcutaneous solution pen needle, diabetic 31 gauge x #100 ea 10/18/2410/24 Rx 3/16 carvedilol 25 mg tablet 25 mg PO BID 10/24/24 History empagliflozin 25 mg tablet 25 mg PO DAILY 10/24/2405/08 History (Jardiance) metformin 500 mg tablet,extended 1,000 mg PO BID 10/2410/24/24 History release 24 hr New Prescriptions to Start Prescriptions: Allergies Allergy/AdvReac Type Severity Reaction Status Date / Time No Known Allergies Allergy Verified 10/21/24 10:39 Exam Data for Last 24 hours Vital signs and Labs for Last 24 Hours: Temp Pulse Resp BP Pulse Ox O2 Del Method 98.7 F 87 20 131/106 H 97 Room Air 10/24/24 23:13 10/24/24 23:13 10/24/24 23:13 10/24/24 23:13 10/24/24 23:13 10/24/24 23:13 Laboratory Results - last 24 hr 10/24/24 20:50: WBC 11.9 H, RBC 3.66 L, Hgb 10.1 L, Hct 30.6 L, MCV 83.6, MCH 27.6, MCHC 33.0, RDW 15.7, Plt Count 365, MPV 11.8 H, Neut % (Auto) 81.8 H, Lymph % (Auto) 8.7 L, [place] % (Auto) 7.9, Eos % (Auto) 0.8, Baso % (Auto) 0.3, Neut # (Auto) 9.7 H, Lymph # (Auto) 1.0, [place] # (Auto) 0.9, Eos # (Auto) 0.1, Baso # (Auto) 0.0, PT 11.0, INR 0.99, VBG pH 7.40, VBG pCO2 42.1, VBG pO2 40.5 H , VBG HCO3 25.3, VBG Total CO2 26.6, VBG O2 Saturation 67.7, VBG Base Excess 0.4, VBG Lactic Acid 2.1 H, Sodium 134 L, Potassium 3.9, Chloride 97 L, Carbon Dioxide 28, Anion Gap 12.9, BUN 55 H, Creatinine 0.90, Estimated Creat Clear 52, Estimated GFR 61, Est GFR ( Amer) 74, Glucose 354 H, Calcium 10.8 H, Phosphorus 4.0, Magnesium 2.3, Total Bilirubin 1.2, AST 293 H, ALT 97 H, Alkaline Phosphatase 80, Total Creatine Kinase 5959 H*, Troponin I 0.02, NT-Pro-B Natriuret Pep 367, Total Protein 7.3, Albumin 3.9, Globulin 3.4 H, Albumin/Globulin Ratio 1.1, TSH 1.80, Free T4 1.89, Plasma/Serum Alcohol < 10, HCV Ab NINA w/Rflx PCR Qn Negative, HIV Ag/Ab Combo Qual Negative 10/24/24 21:18: Ammonia < 9 L 10/24/24 23:00: Urine Color Yellow, Urine Appearance Clear, Urine pH 6.0, Ur Specific [place] 1.015, Urine Protein Negative, Urine Glucose (UA) 2+, Urine Ketones Trace, Urine Blood 2+ A, Urine Nitrate Negative, Urine Bilirubin Negative, Urine Urobilinogen 0.2, Ur Leukocyte Esterase Negative, Urine Opiates Screen Negative, Urine Methadone Screen Negative, Ur Barbituates Screen Negative, Ur Phencyclidine Scrn Negative, Ur Amphetamines Screen Negative, U Benzodiazepines Scrn Negative, Urine Cocaine Screen Negative, U Marijuana (THC) Screen Negative I & O for Last 24 hours: Intake & Output 10/21/24 10/22/24 10/23/24 10/24/24 23:59 23:59 23:59 23:59 Weight 65.544 kg Constitutional Constitutional: no acute distress *Routine HEENT Exam Head: Present normocephalic Eye: Present EOMI and PERRL ENT: Present mucous membranes moist *Routine Neck Exam Neck: Present supple; Absent lymphadenopathy *Routine Respiratory Exam Respiratory: Present CTA bilaterally *Routine Cardiovascular Exam Cardiovascular: Present RRR *Routine Abdominal Exam Abdominal: Present soft and normoactive bowel sounds; Absent tenderness *Routine Rectal Exam Rectal:: deferred *Routine Genitalia Exam Genitalia:: deferred *Routine Extremities Exam Extremities: Absent cyanosis, clubbing or edema *Routine Skin Exam Skin: Present warm; Absent rash *Routine Neurological Exam Neurological: Present alert and oriented X3 Assessment and Plan *Assessment and plan (1) Fall: Status: Acute Category: Medical Code(s): W19.XXXA - Unspecified fall, initial encounter (2) General weakness: Status: Acute Category: Medical Code(s): R53.1 - Weakness (3) Rhabdomyolysis: Status: Acute Category: Medical Code(s): M62.82 - Rhabdomyolysis (4) Hyperglycemia due to type 2 diabetes mellitus: Status: Acute Qualifiers: Diabetes mellitus termite control service representative insulin use: with termite control service representative use Qualified Code(s): E11.65 - Type 2 diabetes mellitus with hyperglycemia; Z79.4 - termite technician (current) use of insulin Category: Medical Code(s): E11.65 - Type 2 diabetes mellitus with hyperglycemia Plan Patient is a 78-year-old female with past medical history of CAD diabetes mellitus hypertension and hyperlipidemia who presents to the hospital due to generalized weakness, recurrent falls. Patient mentions she has been having recurrent falls, and feels weak. Patient otherwise denied fevers chills diarrhea constipation dysuria. Patient was noted to have elevated CK level. Assessment and plan Recurrent falls Rhabdomyolysis Start IV fluids Monitor CK level Consult PT/OT CT head performed-negative for acute intracranial process CT cervical spine performed-negative for acute process Chest x-ray performed-negative for consolidation mildly displaced fracture of the distal fibula cosult ortho PT/OT Chronic medical conditions Hypertension Hyperlipidemia Diabetes mellitus CAD status post CABG - Resume home aspirin, Coreg, atorvastatin, Plavix, Imdur DVT prophylaxis-on heparin
[2024-10-24 23:55] LABS: Troponin I 0.02 ng/ml (0.00-0.034)
[2024-10-25 01:11] LABS: Reflex Lactic Add Lactic Reflex
[2024-10-25 02:31] LABS: Lactic Acid Follow Up (RFLX 1) 0.9 mmol/L (0.7-2.1)
[2024-10-25 02:44] LABS: Troponin I 0.05 ng/ml (0.00-0.034)
[2024-10-25 04:00] VITALS: BP 129/61; PULSE 84; RESP 18; TEMP 36.4; O2SAT 99; BMI 29.7
[2024-10-25 06:36] LABS: Albumin Level 3.6 g/dl (3.5-5.0); Basophils % 0.5 % (0.1-2.0); Chloride 102 mmol/L (98-107); Eosinophils # 0.1 Kmm3 (0.0-0.4); Eosinophils % 1.5 % (0.1-12.0); Hematocrit 29.9 % (37.0-47.0); Hemoglobin 9.5 g/dL (12.2-16.2); Immature Granulocytes # 0.04 10^3uL; Immature Granulocytes % 0.5 %; Lymphocytes # 1.4 K/mm3 (0.7-4.5); Lymphocytes % 17.4 % (10-50); Mean Corpuscular HGB Conc 31.8 g/dL (31.8-35.4); Mean Corpuscular Hemoglobin 27.7 pg (27.0-31.2); Mean Corpuscular Volume 87.2 fl (81-99); Mean Platelet Volume 11.5 fl (7.4-10.4); Monocytes # 0.7 K/mm3 (0.1-1.0); Neutrophils # 5.6 K/mm3 (1.8-7.8); Neutrophils % 71.1 % (37.0-80.0); Nucleated Red Blood Cells # 0 10^3/uL; Nucleated Red Blood Cells % 0 %; Platelet Count 305 K/mm3 (142-424); Potassium 3.4 mmoL/L (3.5-5.1); Red Blood Count 3.43 M/mm3 (4.20-5.40); Red Cell Distribution Width 15.9 % (11.5-17.5); Red Cell Distribution Width-SD 49.7 fL; Sodium 137 mmol/L (136-145); White Blood Count 7.9 K/mm3 (4.8-10.8)
[2024-10-25 06:39] LABS: Alanine Aminotransferase 92 U/L (12-78); Albumin/Globulin Ratio 1.1 (1.1-1.8); Alkaline Phosphatase 93 U/L (38-126); Anion Gap 12.4 mEq/L (5-15); Aspartate Amino Transferase 283 U/L (14-36); Bilirubin,Total 1.4 mg/dl (0.2-1.3); Blood Urea Nitrogen 49 mg/dl (7-17); Calcium 8.9 mg/dl (8.4-10.2); Carbon Dioxide 26 mmol/L (22.0-30.0); Creatinine Clearance Estimated 51 mL/min (50-200); Estimated Glomerular Filt Rate 70 ml/min (>60); GFR (African American) 84 ML/MIN (>60); Globulin 3.2 g/dL (1.3-3.2); Glucose 224 mg/dl (74-100); Total Protein,Serum 6.8 g/dl (6.3-8.2)
[2024-10-25 06:54] LABS: Creatine Kinase 3119 U/L (30-135)
[2024-10-25 08:00] VITALS: BP 122/62; PULSE 89; RESP 18; TEMP 36.6; O2SAT 98
[2024-10-25] MEDS: CARVEDILOL 25MG TABLET 25 MG PO ×2 (08:14→20:59)
[2024-10-25] MEDS: ASPIRIN EC 81MG TABLET 81 MG PO (08:14)
[2024-10-25] MEDS: FENOFIBRATE 134MG CAPSULE 134 MG PO (08:14)
[2024-10-25] MEDS: LORATADINE 10MG TABLET 10 MG PO (08:14)
[2024-10-25] MEDS: EMPAGLIFLOZIN 25MG TABLET 25 MG PO (08:15)
[2024-10-25] MEDS: CLOPIDOGREL 75MG TAB 75 MG PO (08:15)
[2024-10-25] MEDS: ISOSORBIDE MONO 60MG TAB.ER.24H 60 MG PO (08:15)
[2024-10-25] MEDS: HEPARIN SODIUM 5,000 UNIT/ML VIAL 5000 UNIT SUBCUT (08:17)
[2024-10-25] MEDS: INSULIN GLARGINE 100 UNITS/ML 3ML FLEXPEN 20 UNIT SUBCUT (08:21)
--- NOTE | 2024-10-25 10:11 | HMH.PTEV ---
Physical Therapy Evaluation Rehab PT IP Evaluation Start: 10/25/24 06:11 Freq: ONCE Status: Active Protocol: Document 10/25/24 09:14 STEF (Rec: 10/25/24 09:19 STEF [id number]) Subjective/History History History Per H&P: Patient is a 78-year-old female with past medical history of CAD diabetes mellitus hypertension and hyperlipidemia who presents to the hospital due to generalized weakness, recurrent falls. Patient mentions she has been having recurrent falls, and feels weak. Patient otherwise denied fevers chills diarrhea constipation dysuria. Patient was noted to have elevated CK level. Subjective Subjective PLOF: IND with mobility with use of RW. Multiple falls. Not driving. Home: Lives alone in a single-story home with 0 CORNEL. Available assistance: Daughter lives nearby but pt reports no-one is able to stay with her 05/12. [facility] How much help from another person do you currently need... Turning from your A lot back to your side while in a flat bed without using bedrails? Moving from lying on A lot back to sitting on the side of a flat bed without using bedrails? Moving to and from a A lot bed to a chair ( including a wheelchair)? Standing up from a A lot chair using your arms? (e.g., wheelchair, bedside chair) Walking in hospital A lot room? Climbing 3-5 steps A lot with a railing? Mobility Score 12 Mobility Level [facility] Mobility 4 Move to chair/commode Mobility Calculator Rehab PT IP Eval Objective Appearance Patient Behavior Appropriate,Cooperative Patient Orientation Person,Situation Difficulty following none instructions Speech Pattern Clear Ambulation Patient Able to No Ambulate Balance Ability to Arise Able, uses arms to help Sitting Balance Steady, safe Standing Balance Unsteady Transfers Bed Transfer Ability Moderate x 1 (50% assist) Sit to Stand Bed Moderate x 1 (50% assist) Transfer Ability Rehab PT IP prob,goals,plan Problems Date of Evaluation: 10/25/24 PT IP Problems Bed Mobility,Transfers,Gait,Balance,Self care,Safety Rehab Potential Rehab Potential Good Plan PT Intervention Plan Bed Mobility,Transfers,Gait,Balance,Self care,Safety, Therapeutic Exercise Other Intervention 1-2 times Plan PT Plan Frequency Daily Duration LOS Discharge Goals Bed Transfer Ability Minimal x 1 (25% assist) Sit to Stand Chair Minimal x 1 (25% assist) Transfer Ability Ambulation Assistive Rolling Walker Device Ambulation Distance 10 (feet) Discharge Plan PT Discharge Plan Pt presents below baseline with mobility. Pt required mod A for mobility. Pt not safe to return home at this time d/t current level of mobility. PT recommending rehabilitation placement upon d/c from [facility] to address deficits and promote safety with mobility. Pt would benefit from skilled acute care PT while at [facility]. Eval Complexity Eval Charge Codes 49222 - Moderate Complexity PHYSICIAN CERTIFICATION: I certify the specified therapy services for Rachana Noble are required, authorized, and reviewed every 30 days.
--- NOTE | 2024-10-25 11:31 | HMH.OTEV ---
OT Inpatient Evaluation Rehab OT IP Evaluation Start: 10/24/24 22:53 Freq: ONCE Status: Active Protocol: Document 10/25/24 08:30 LEÓN (Rec: 10/25/24 10:21 [email or web address] [id number]) Rehab OT IP Assessment Subjective History Per H&P: Patient is a 78-year-old female with past medical history of CAD diabetes mellitus hypertension and hyperlipidemia who presents to the hospital due to generalized weakness, recurrent falls. Patient mentions she has been having recurrent falls, and feels weak. Patient otherwise denied fevers chills diarrhea constipation dysuria. Patient was noted to have elevated CK level. Subjective Pt was pleasant and cooperative and engaged in conversation without difficulty. She reports PLOF as follows: Modified independent to independent with functional mobility, with recent use of FWW. Pt reports multiple falls within the past [address], stating family or others assist with transportation. She resides in a single level home, with no steps to enter. Daughter lives nearby and visits intermittently. Pt reports there is no one available to stay with her 05/12. Pt wearing boot on left LE due to distal tibia fx resulting from recent fall. Pt unable to perform functional mobility at time of OT evaluation. Static sitting balance EOB steady/safe; dynamic sitting balance EOB unsteady. Objective Patient Orientation Person,Place,Time,Name,Age,Birthday,Month,Year, Situation Right Upper Min Limitation <25% Extremity Gross ROM Left Upper Extremity Min Limitation <25% Gross ROM Shoulder ROM Soft Tissue Tightness,Muscle Weakness Limitations Bed Mobility bed mobility-scooting,bed mobility - supine/sit,bed mobility - rolling Assist Level Moderate x 1 (50% assist) Feeding Ability Assist with Tray Set Up Upper Body Dressing Moderate Assistance Ability Decrease in Yes Endurance Rehab OT IP prob,goals,plan Problems Date of Evaluation: 10/25/24 OT IP Problems Bed Mobility,Transfers,Balance,Self care,Safety,Other Rehab Potential Rehab Potential Good Equipment Needs Assistive Devices Rolling / Wheeled Walker Plan OT intervention Plan Bed Mobility,Transfers,Balance,Self care,Safety, Therapeutic Exercise,Other OT Plan Frequency Daily Discharge Goals Bed Mobility Ability Standby Assistance Sit to Stand Chair Moderate x 1 (50% assist) Transfer Ability Chair Transfer Moderate x 1 (50% assist) Ability Chair Transfer Stand Pivot Technique Chair Transfer Rolling Walker Assistive Devices Lower Body Dressing Moderate Assistance Ability Upper Body Dressing Minimal Assistance Ability Performing Toilet Moderate Assistance Hygiene Ability Overall Commode/ Moderate Assistance Toilet Transfer Ability Commode/Toilet Stand Pivot Transfer Technique Commode/Toilet Raised Toilet Seat,Grab Bars Transfer Assistive Devices Oral Care Assist Independent Decrease in Yes Endurance Discharge Plan OT Discharge Plan Pt presents with functional skills well below her baseline. Pt was recently hospitalized and dc to rehab facility. She is not safe to return to her home alone at this time due to decreased functional mobility, generalized weakness, poor dynamic balance and overall deficits in ADL/IADL. OT recommends rehab placement upon dc from [facility] to address aforementioned areas of deficit, to promote safety and greater independence. Pt will benefit from skilled IP OT services while at [facility]. Eval Complexity Eval Charge Codes 45890 - Moderate Complexity PHYSICIAN CERTIFICATION: I certify the specified therapy services for Rachana Noble are required, authorized, and reviewed every 30 days.
--- NOTE | 2024-10-25 12:03 | SW/DCPLANNER ---
Addendum entered by Irma Moreno 10/25/24 13:55: Per Douglas w/ [facility] precert has been started today. Original Note: I spoke w/ this patient regarding plans once medically stable for discharge. PT/OT evaluated patient and recommended SNF level of care. Patient is agreeable to placement and prefers [facility]. Patient information has been faxed to [facility] and Douglas is reviewing. Per MD patient is medically stable for discharge today.
--- NOTE | 2024-10-25 14:17 | MR_ITS ---
FINAL REPORT CLINICAL HISTORY: slurred speech. r/o stroke. COMPARISON: 04/30/2024 FINDINGS: Multi planar MR imaging was obtained through the brain without contrast. The midline structures appear intact. The extensive abnormal signal in the deep white matter bilaterally. There is encephalomalacia in the posterior right temporal lobe with underlying gliosis. Findings are stable since prior. On diffusion-weighted images there is no evidence of restricted diffusion. The visualized paranasal sinuses demonstrate normal signal voids. The seventh and eighth nerve root complexes are intact. IMPRESSION: Encephalomalacia in the posterior right frontal lobe, stable. Moderate changes of chronic microvascular ischemia. Reviewed, Interpreted and Dictated by Miller Duffy MD Transcribed by Gabrielle Mathew Authenticated and [facility]
--- NOTE | 2024-10-25 14:20 | CA_ITS ---
APPROVED REPORT EXAM: Comprehensive 2D, Doppler, and color-flow Echocardiogram Pockets And Pieces Necktie Operator: Saumya Webb RT(R) Ht: 4 ft 11 in Wt: 147lbs BSA: 1.62 BP: 138/82 mmHg Indications: NSTEMI 2D Dimensions EF AP4 26.60 % GL Strain -3.0 % M-Mode Dimensions RVDd 2.96 cm (0.9-2.6) LA Diam 3.93 cm (1.9-4.0) LVDd 4.44 cm (3.5-5.7) LVDs 3.23 cm (3.5-5.7) IVSd 0.80 cm (0.6-1.1) PWd 0.68 cm (0.6-1.1) EF (Teich) 53.20% FS 27.30% EDV (Teich) 89.60 mL ESV (Teich) 41.90 mL LV Diastology E Decel Time 150 (160-240 msec) E/A Ratio 0.9 Mitral Valve MV E Max Kirby. 110.0 (40-130 cm/s) MV A Velocity 124.0 (40-130 cm/s) E/A Ratio 0.88 MV PHT 44.0 ms Tricuspid Valve TR P. Velocity 232.00 cm/s Left Ventricle The left ventricle is normal size. The left ventricular systolic function is normal. The left ventricular ejection fraction is within the normal range. There is increased LV wall thickness. There is normal LV segmental wall motion. Transmitral Doppler flow pattern suggests impaired LV relaxation. LVEF is 60%. Right Ventricle Right ventricle is mildly dilated. The right ventricular systolic function is normal. Atria Left atrium is mildly dilated. Right atrium is mildly dilated. There is no Doppler evidence of interatrial shunt. Aortic Valve The aortic valve is mildly thickened. There is no aortic valvular stenosis. No aortic regurgitation is present. Mitral Valve The mitral valve is normal in structure. No evidence of mitral valve stenosis. Mild mitral regurgitation. Tricuspid Valve Tricuspid valve is grossly normal in structure and function. Mild tricuspid regurgitation. RVSP is 20-25 mmHg. Pulmonic Valve The pulmonary valve is normal in structure. Trace pulmonic regurgitation. Great Vessels The aortic root is normal in size. IVC is normal in size and collapses >50% with inspiration. Pericardium There is no pericardial effusion. Other Information Study Quality: Fair Conclusion Normal biventricular systolic function. Mild RV dilation. Mild biatrial dilation. Mild MR, mild TR. Electronically signed by : Julienne Moralez MD 10/27/2024 19:24:35
[2024-10-25 15:25] LABS: Adenovirus,PCR Not Detected (NotDetected); Bordetella Pertussis Not Detected (NotDetected); Chlamydophila Pneumoniae, PCR Not Detected (NotDetected); Coronavirus 19, PCR Not Detected (NotDetected); Coronavirus 229E Not Detected (NotDetected); Coronavirus NL63 Not Detected (NotDetected); Coronavirus OC43 Not Detected (NotDetected); Coronovirus HKU1,PCR Not Detected (NotDetected); Human Metapneumovirus Not Detected (NotDetected); Influenza A, PCR Not Detected (NotDetected); Influenza AH1, 2009 Not Detected (NotDetected); Influenza AH1, PCR Not Detected (NotDetected); Influenza AH3,PCR Not Detected (NotDetected); Influenza B, PCR Not Detected (NotDetected); Mycoplasma Pneumoniae, PCR Not Detected (NotDetected); Parainfluenza 1, PCR Not Detected (NotDetected); Parainfluenza 2, PCR Not Detected (NotDetected); Parainfluenza 3, PCR Not Detected (NotDetected); Parainfluenza 4, PCR Not Detected (NotDetected); Respiratory Syncytial Virus Not Detected (NotDetected); Rhinovirus/Enterovirus Not Detected (NotDetected)
[2024-10-25 16:00] VITALS: BP 147/66; PULSE 83; RESP 16; TEMP 36.7; O2SAT 99
[2024-10-25 16:35] LABS: Troponin I 0.59 ng/ml (0.00-0.034)
[2024-10-25] MEDS: ENOXAPARIN 100MG/ML SYRINGE 65 MG SUBCUT (17:46)
[2024-10-25] MEDS: ASPIRIN 81MG CHEWABLE TABLET 162 MG PO (17:46)
--- NOTE | 2024-10-25 18:07 | PC.NURSE ---
Patient is A&Ox4. Vital signs stable tolerating room air. Pt worked with PT/OT today. Boot in place on right foot. No complaints of pain. FSBS treated per JUL. ECHO ordered. Bed alarm in place. Pt resting comfortably with no further needs voiced at this time. Call light within reach.
--- NOTE | 2024-10-25 18:19 | EXP.PN ---
Subjective *Date: 10/25/24 *Time: 18:19 Interval history: Patient states she is feeling better today. No chest pain, shortness of breath. Pending placement. Troponin slightly uptrending, started therapeutic Lovenox. Slight slurred speech this afternoon, MRI with no acute findings. Exam Data for Last 24 hours Vital signs and Labs for Last 24 Hours: Temp Pulse Resp BP Pulse Ox O2 Del Method O2 Flow Rate 98.1 F 83 16 147/66 H 99 Room Air 2 10/25/24 16:00 10/25/24 16:00 10/25/24 16:00 10/25/24 16:00 10/25/24 16:00 10/25/24 17:00 10/25/24 09:00 Laboratory Results - last 24 hr 10/24/24 20:50: WBC 11.9 H, RBC 3.66 L, Hgb 10.1 L, Hct 30.6 L, MCV 83.6, MCH 27.6, MCHC 33.0, RDW 15.7, Plt Count 365, MPV 11.8 H, Neut % (Auto) 81.8 H, Lymph % (Auto) 8.7 L, [place] % (Auto) 7.9, Eos % (Auto) 0.8, Baso % (Auto) 0.3, Neut # (Auto) 9.7 H, Lymph # (Auto) 1.0, [place] # (Auto) 0.9, Eos # (Auto) 0.1, Baso # (Auto) 0.0, PT 11.0, INR 0.99, VBG pH 7.40, VBG pCO2 42.1, VBG pO2 40.5 H, VBG HCO3 25.3, VBG Total CO2 26.6, VBG O2 Saturation 67.7, VBG Base Excess 0.4, VBG Lactic Acid 2.1 H, Sodium 134 L, Potassium 3.9, Chloride 97 L, Carbon Dioxide 28, Anion Gap 12.9, BUN 55 H, Creatinine 0.90, Estimated Creat Clear 52, Estimated GFR 61, Est GFR ( Amer) 74, Glucose 354 H, Calcium 10.8 H, Phosphorus 4.0, Magnesium 2.3, Total Bilirubin 1.2, AST 293 H, ALT 97 H, Alkaline Phosphatase 80, Total Creatine Kinase 5959 H*, Troponin I 0.02, NT-Pro-B Natriuret Pep 367, Total Protein 7.3, Albumin 3.9, Globulin 3.4 H, Albumin/Globulin Ratio 1.1, TSH 1.80, Free T4 1.89, Plasma/Serum Alcohol < 10, HCV Ab NINA w/Rflx PCR Qn Negative, HIV Ag/Ab Combo Qual Negative 10/24/24 21:18: Ammonia < 9 L 10/24/24 23:00: Urine Color Yellow, Urine Appearance Clear, Urine pH 6.0, Ur Specific [place] 1.015, Urine Protein Negative, Urine Glucose (UA) 2+, Urine Ketones Trace, Urine Blood 2+ A, Urine Nitrate Negative, Urine Bilirubin Negative, Urine Urobilinogen 0.2, Ur Leukocyte Esterase Negative, Urine RBC Occasional, Ur Squamous Epith Cells Occasional, Urine Bacteria Trace, Urine Opiates Screen Negative, Urine Methadone Screen Negative, Ur Barbituates Screen Negative, Ur Phencyclidine Scrn Negative, Ur Amphetamines Screen Negative, U Benzodiazepines Scrn Negative, Urine Cocaine Screen Negative, U Marijuana (THC) Screen Negative 10/24/24 23:17: Troponin I 0.02 10/25/24 02:13: Lactate 0.9, Troponin I 0.05 H 10/25/24 06:02: WBC 7.9 D, RBC 3.43 L, Hgb 9.5 L, Hct 29.9 L, MCV 87.2, MCH 27.7, MCHC 31.8, RDW 15.9, Plt Count 305, MPV 11.5 H, Neut % (Auto) 71.1, Lymph % (Auto) 17.4, [place] % (Auto) 9.0, Eos % (Auto) 1.5, Baso % (Auto) 0.5, Neut # (Auto) 5.6, Lymph # (Auto) 1.4, [place] # (Auto) 0.7, Eos # (Auto) 0.1, Baso # (Auto) 0.0, Sodium 137, Potassium 3.4 L, Chloride 102, Carbon Dioxide 26, Anion Gap 12.4, BUN 49 H, Creatinine 0.80, Estimated Creat Clear 51, Estimated GFR 70, Est GFR ( Amer) 84, Glucose 224 H D, Calcium 8.9, Total Bilirubin 1.4 H, AST 283 H, ALT 92 H, Alkaline Phosphatase 93, Total Creatine Kinase 3119 H* D, Troponin I 0.10 H, Total Protein 6.8, Albumin 3.6, Globulin 3.2, Albumin/Globulin Ratio 1.1 10/25/24 15:20: Chlamy pneumoniae PCR Not detected, Adenovirus (PCR) Not detected, B. pertussis DNA (PCR) Not detected, Coronavirus OC43 (PCR) Not detected, Coronavirus HKU1 (PCR) Not detected, Coronavirus 229E (PCR) Not detected, SARS-CoV-2 (PCR) Not detected, Coronavirus NL63 (PCR) Not detected, Human Metapneumovir PCR Not detected, Influenza A (H1) PCR Not detected, Influ A (H1N1/09) PCR Not detected, Influenza A (H3) PCR Not detected, Influenza Type A (PCR) Not detected, Influenza Type B (PCR) Not detected, M. pneumoniae (PCR) Not detected, Parainfluenza 1 (PCR) Not detected, Parainfluenza 2 (PCR) Not detected, Parainfluenza 3 (PCR) Not detected, Parainfluenza 4 (PCR) Not detected, RSV (PCR) Not detected, Entero/Rhino (PCR) Not detected 10/25/24 16:00: Troponin I 0.59 H I & O for Last 24 hours: Intake & Output 10/22/24 10/23/24 10/24/24 10/25/24 23:59 23:59 23:59 23:59 Intake Total 980 / 980 Output Total 900 / 900 Balance 80 / 80 Weight 65.544 kg 66.996 kg Constitutional Constitutional: no acute distress *Routine HEENT Exam Head: Present normocephalic Eye: Present EOMI and PERRL ENT: Present mucous membranes moist *Routine Neck Exam Neck: Present supple; Absent lymphadenopathy *Routine Respiratory Exam Respiratory: Present CTA bilaterally *Routine Cardiovascular Exam Cardiovascular: Present RRR *Routine Abdominal Exam Abdominal: Present soft and normoactive bowel sounds; Absent tenderness *Routine Extremities Exam Extremities: Present edema; Absent cyanosis or clubbing *Routine Skin Exam Skin: Present warm; Absent rash *Routine Neurological Exam Neurological: Present alert Assessment and Plan *Assessment and plan (1) Fall: Status: Acute Category: Medical Code(s): W19.XXXA - Unspecified fall, initial encounter (2) General weakness: Status: Acute Category: Medical Code(s): R53.1 - Weakness (3) Rhabdomyolysis: Status: Acute Category: Medical Code(s): M62.82 - Rhabdomyolysis (4) Hyperglycemia due to type 2 diabetes mellitus: Status: Acute Qualifiers: Diabetes mellitus buttermaker helper insulin use: with detention use Qualified Code(s): E11.65 - Type 2 diabetes mellitus with hyperglycemia; Z79.4 - halfway (current) use of insulin Category: Medical Code(s): E11.65 - Type 2 diabetes mellitus with hyperglycemia Plan Patient is a 78-year-old female with past medical history of CAD diabetes mellitus hypertension and hyperlipidemia who presents to the hospital due to generalized weakness, recurrent falls and was admitted for the same and rhabdomyolysis. Patient mentions she has been having recurrent falls, and feels weak. Patient otherwise denied fevers chills diarrhea constipation dysuria. Patient was noted to have elevated CK level. #Recurrent falls #Rhabdomyolysis #Displaced left distal fibula fracture ? Has been having progressive weakness, recurrent falls at home. Had left fibular fracture 2 weeks ago, evaluated by orthopedic surgery and treating with nonoperative management at this time. ? Patient states ever since she has been in left leg boot, she has been even more weak and less ambulatory. ? PT/OT consulted, recommended SNF. Case management assessment and placement. Accepted to [facility], can be discharged when medically stable. ? CK improving to 3100 today, renal function stable. Creatinine 0.80, GFR 70. ? Continue IV LR at 75 mL/h. ? Follow-up TSH, B12, folate. UA, CXR unremarkable. ? Patient did have seemingly slight slurred speech today, with a history of CVA obtain MRI which showed chronic right-sided frontal lobe encephalomalacia. No acute stroke. #NSTEMI #CAD/CABG with stents #History of CVA #Hypertension ? Troponin up to 0.59 today, patient denies chest pain or shortness of breath. EKG without acute ischemic changes. ? Cardiology consulted, pending further recommendations. Started therapeutic Lovenox. Given aspirin load. ? Follow-up ECHO. ? Continue aspirin 81 mg, Plavix 75 mg, carvedilol, Imdur, atorvastatin 80 mg. ? Follow-up repeat troponin at 9 PM. #Type 2 diabetes ? Hemoglobin A1c 9.3%. Follow-up repeat. ? LDSSI, ACHS glucose checks. ? Continue home Jardiance 25 mg, Lantus 20 units daily. Full code DVT prophylaxis: Therapeutic Lovenox as above.
[2024-10-25 19:45] VITALS: BP 133/56; PULSE 92; RESP 16; TEMP 36.7; O2SAT 90
[2024-10-25 20:16] LABS: Vitamin B12 518 pg/mL (239-931)
[2024-10-25 20:19] LABS: POC Glucose,Bedside 127 (70-110)
[2024-10-25 20:19] LABS: POC Glucose,Bedside 269 (70-110)
[2024-10-25 20:19] LABS: POC Glucose,Bedside 182 (70-110)
[2024-10-25 20:19] LABS: POC Glucose,Bedside 211 (70-110)
[2024-10-25] MEDS: PANTOPRAZOLE 40MG TABLET 40 MG PO (20:58)
[2024-10-25] MEDS: ATORVASTATIN 40MG TABLET 80 MG PO (20:58)
[2024-10-25] MEDS: LACTATED RINGERS 1000ML 1,000 ML 75 ML IV (20:59)
[2024-10-25] MEDS: VITAMIN B-12 1,000 MCG 1ML VIAL 1000 MCG IM (21:05)
[2024-10-25 22:47] LABS: Troponin I 0.81 ng/ml (0.00-0.034)
--- NOTE | 2024-10-25 22:50 | PC.NURSE ---
Notified hospitalist of critical troponin of 0.81. No new orders at this time.
[2024-10-26 04:00] VITALS: BP 133/63; PULSE 85; RESP 18; TEMP 36.4; O2SAT 96; BMI 293212.9
[2024-10-26 04:03] LABS: Microscopic, Urine URINE MICROSCOPIC (MICROSCOPIC)
[2024-10-26 04:04] LABS: Appearance,Urine CLEAR (Clear); Blood, Urine 2+ (Negative); Color,Urine YELLOW (Yellow); Glucose,Urine (UA) 3+ (Negative); Ketones,Urine 1+ (Negative); Leukocyte Esterase,Urine Negative (Negative); Nitrate,Urine Negative (Negative); Protein,Urine Negative (Negative); Urobilinogen,Urine 0.2 EU/dl (0.2)
[2024-10-26 04:07] LABS: Bilirubin,Urine 1+ (Negative)
[2024-10-26 05:21] LABS: Bacteria,Urine Trace /lpf; Uric Acid Crystals,Urine Trace /lpf; WBC,Urine Occasional #/hpf (0-3)
[2024-10-26] MEDS: ENOXAPARIN 80MG/0.8ML SYRINGE 65 MG SUBCUT (06:35)
[2024-10-26 06:46] LABS: POC Glucose,Bedside 99 (70-110)
[2024-10-26 07:10] LABS: Basophils % 0.3 % (0.1-2.0); Eosinophils # 0.1 Kmm3 (0.0-0.4); Eosinophils % 1.2 % (0.1-12.0); Hematocrit 27.7 % (37.0-47.0); Hemoglobin 8.8 g/dL (12.2-16.2); Immature Granulocytes # 0.08 10^3uL; Immature Granulocytes % 0.9 %; Lymphocytes # 1.3 K/mm3 (0.7-4.5); Lymphocytes % 15.2 % (10-50); Mean Corpuscular HGB Conc 31.8 g/dL (31.8-35.4); Mean Corpuscular Hemoglobin 26.9 pg (27.0-31.2); Mean Corpuscular Volume 84.7 fl (81-99); Mean Platelet Volume 11.4 fl (7.4-10.4); Monocytes # 0.5 K/mm3 (0.1-1.0); Monocytes % 5.3 % (1.7-9.3); Neutrophils # 6.6 K/mm3 (1.8-7.8); Neutrophils % 77.1 % (37.0-80.0); Nucleated Red Blood Cells # 0 10^3/uL; Nucleated Red Blood Cells % 0 %; Platelet Count 296 K/mm3 (142-424); Red Blood Count 3.27 M/mm3 (4.20-5.40); Red Cell Distribution Width 15.8 % (11.5-17.5); Red Cell Distribution Width-SD 47.8 fL; White Blood Count 8.6 K/mm3 (4.8-10.8)
[2024-10-26 07:15] LABS: Albumin Level 3.2 g/dl (3.5-5.0); Chloride 104 mmol/L (98-107); Potassium 3.5 mmoL/L (3.5-5.1); Sodium 139 mmol/L (136-145)
[2024-10-26 07:18] LABS: Alanine Aminotransferase 104 U/L (12-78); Albumin/Globulin Ratio 1.1 (1.1-1.8); Alkaline Phosphatase 63 U/L (38-126); Anion Gap 11.5 mEq/L (5-15); Aspartate Amino Transferase 254 U/L (14-36); Bilirubin,Total 1.2 mg/dl (0.2-1.3); Blood Urea Nitrogen 29 mg/dl (7-17); Carbon Dioxide 27 mmol/L (22.0-30.0); Creatinine Clearance Estimated 50 mL/min (50-200); Estimated Glomerular Filt Rate 97 ml/min (>60); GFR (African American) 118 ML/MIN (>60); Globulin 2.9 g/dL (1.3-3.2); Total Protein,Serum 6.1 g/dl (6.3-8.2)
[2024-10-26 07:19] LABS: Glucose 101 mg/dl (74-100)
[2024-10-26 08:00] VITALS: BP 131/58; PULSE 86; RESP 16; TEMP 36.4; O2SAT 95
[2024-10-26] MEDS: ASPIRIN EC 81MG TABLET 81 MG PO (08:44)
[2024-10-26] MEDS: ISOSORBIDE MONO 60MG TAB.ER.24H 60 MG PO (08:44)
[2024-10-26] MEDS: FENOFIBRATE 134MG CAPSULE 134 MG PO (08:44)
[2024-10-26] MEDS: EMPAGLIFLOZIN 25MG TABLET 25 MG PO (08:44)
[2024-10-26] MEDS: CARVEDILOL 25MG TABLET 25 MG PO (08:44)
[2024-10-26] MEDS: LORATADINE 10MG TABLET 10 MG PO (08:44)
[2024-10-26] MEDS: CLOPIDOGREL 75MG TAB 75 MG PO (08:44)
[2024-10-26] MEDS: INSULIN GLARGINE 100 UNITS/ML 3ML FLEXPEN 20 UNIT SUBCUT (08:49)
[2024-10-26 09:01] LABS: POC Glucose,Bedside 206 (70-110)
[2024-10-26 09:34] LABS: Creatine Kinase 2467 U/L (30-135)
[2024-10-26] MEDS: LACTATED RINGERS 1000ML 1,000 ML 75 ML IV (09:57)
[2024-10-26 11:16] LABS: POC Glucose,Bedside 142 (70-110)
[2024-10-26 11:56] LABS: Troponin I 0.59 ng/ml (0.00-0.034)
--- NOTE | 2024-10-26 13:27 | P.DS_ITS ---
General Admission date:: 10/24/24 HPI HPI HPI: Patient is a 78-year-old female with past medical history of CAD diabetes mellitus hypertension and hyperlipidemia who presents to the hospital due to generalized weakness, recurrent falls. Patient mentions she has been having recurrent falls, and feels weak. Patient otherwise denied fevers chills diarrhea constipation dysuria. Patient was noted to have elevated CK level. Hospital Course Hospital Course Hospital Course: Rachana Noble is a 78-year-old female with past medical history of CAD diabetes mellitus hypertension and hyperlipidemia who presents to the hospital due to generalized weakness, recurrent falls and was admitted for the same and rhabdomyolysis. Patient mentions she has been having recurrent falls, and feels weak. Patient otherwise denied fevers chills diarrhea constipation dysuria. Patient was noted to have elevated CK level. #Recurrent falls #Rhabdomyolysis #Displaced left distal fibula fracture #Depression ? Has been having progressive weakness, recurrent falls at home. Had left fibular fracture 2 weeks ago, evaluated by orthopedic surgery and treating with nonoperative management at this time. ? Patient states ever since she has been in left leg boot, she has been even more weak and less ambulatory. ? PT/OT consulted, recommended SNF. [facility] graciously accepted patient for SNF. ? Initial CK around 6000, improved to 2400 with fluid resuscitation. Renal function normal. ? TSH, B12, folate, UA, CXR normal. CTA neck in April 2020 for did not show significant carotid disease. ? Patient did have seemingly slight slurred speech during admission, with a history of CVA obtain MRI which showed chronic right-sided frontal lobe encephalomalacia. No acute stroke. ? Will need follow-up with orthopedic surgery within 1 to 2 weeks to reevaluate left fibular fracture. Keep in boot until then. ? Patient has been depressed since her about 7 years ago, essentially remains very stationary at home with low appetite. Start fluoxetine 10 mg daily, follow-up on response. ? Continue oral fluid hydration at snf to continue treatment for rhabdomyolysis. #NSTEMI #CAD/CABG with stents #History of CVA #Hypertension ? Troponin up to 0.81 with downtrend, patient denies chest pain or shortness of breath. EKG without acute ischemic changes. Treated with therapeutic Lovenox, continued aspirin, Plavix. ? Discussed case with Dr. Soriano, previous LHC in June 2022 showed significant calcification in mid LAD with high risk for restenosis if stent was placed. At this time, Dr. Soriano recommends medical management for NSTEMI. ? ECHO LVEF 60% without wall motion abnormalities. ? Continue aspirin 81 mg, Plavix 75 mg, carvedilol, Imdur, atorvastatin 80 mg. Did decrease carvedilol to 12.5 mg twice daily due to recurrent falls. #Type 2 diabetes ? Hemoglobin A1c 9.3% in July 2024. Repeat pending. ? Continue home Jardiance 25 mg, Lantus 20 units daily, Ozempic. ? Blood sugars have been better managed with the diabetic diet during hospital course. Recommend the same at SNF. Total time spent on discharge: 36 minutes on chart review, counseling, documentation, and direct care with patient. Exam Data for Last 24 hours Vital signs and Labs for Last 24 Hours: Temp Pulse Resp BP Pulse Ox O2 Del Method O2 Flow Rate 97.5 F L 86 16 131/58 L 95 Room Air 2 10/26/24 08:00 10/26/24 08:00 10/26/24 08:00 10/26/24 08:00 10/26/24 08:00 10/26/24 11:00 10/25/24 09:00 Laboratory Results - last 24 hr 10/25/24 08:16: POC Glucose 269 H 10/25/24 12:21: POC Glucose 211 H 10/25/24 15:20: Chlamy pneumoniae PCR Not detected, Adenovirus (PCR) Not detected, B. pertussis DNA (PCR) Not detected, Coronavirus OC43 (PCR) Not detected, Coronavirus HKU1 (PCR) Not detected, Coronavirus 229E (PCR) Not detected, SARS-CoV-2 (PCR) Not detected, Coronavirus NL63 (PCR) Not detected, Human Metapneumovir PCR Not detected, Influenza A (H1) PCR Not detected, Influ A (H1N1/09) PCR Not detected, Influenza A (H3) PCR Not detected, Influenza Type A (PCR) Not detected, Influenza Type B (PCR) Not detected, M. pneumoniae (PCR) Not detected, Parainfluenza 1 (PCR) Not detected, Parainfluenza 2 (PCR) Not detected, Parainfluenza 3 (PCR) Not detected, Parainfluenza 4 (PCR) Not detected, RSV (PCR) Not detected, Entero/Rhino (PCR) Not detected 10/25/24 16:00: Troponin I 0.59 H 10/25/24 17:54: POC Glucose 127 H 10/25/24 19:08: Vitamin B12 518 10/25/24 19:38: POC Glucose 182 H 10/25/24 22:11: Troponin I 0.81 H 10/26/24 03:59: Urine Color Yellow, Urine Appearance Clear, Urine pH 6.0, Ur Specific [place] 1.020, Urine Protein Negative, Urine Glucose (UA) 3+, Urine Ketones 1+, Urine Blood 2+ A, Urine Nitrate Negative, Urine Bilirubin 1+ A, Urine Urobilinogen 0.2, Ur Leukocyte Esterase Negative, Urine RBC 3-5, Urine WBC Occasional, Ur Squamous Epith Cells 3-5, Uric Acid Crystals Trace, Urine Bacteria Trace 10/26/24 06:36: POC Glucose 99 10/26/24 06:40: WBC 8.6, RBC 3.27 L, Hgb 8.8 L, Hct 27.7 L, MCV 84.7, MCH 26.9 L , MCHC 31.8, RDW 15.8, Plt Count 296, MPV 11.4 H, Neut % (Auto) 77.1, Lymph % (Auto) 15.2, [place] % (Auto) 5.3, Eos % (Auto) 1.2, Baso % (Auto) 0.3, Neut # (Auto) 6.6, Lymph # (Auto) 1.3, [place] # (Auto) 0.5, Eos # (Auto) 0.1, Baso # (Auto) 0.0, Sodium 139, Potassium 3.5, Chloride 104, Carbon Dioxide 27, Anion Ga p 11.5, BUN 29 H D, Creatinine 0.60 D, Estimated Creat Clear 50, Estimated GFR 97, Est GFR ( Amer) 118 D, Glucose 101 H, Calcium 9.0, Total Bilirubin 1.2, AST 254 H, ALT 104 H, Alkaline Phosphatase 63, Total Creatine Kinase 2467 H*, Troponin I 0.59 H, Total Protein 6.1 L, Albumin 3.2 L D, Globulin 2.9, Albumin/Globulin Ratio 1.1, Folate 10.20 10/26/24 08:48: POC Glucose 206 H 10/26/24 11:08: POC Glucose 142 H I & O for Last 24 hours: Intake & Output 10/23/24 10/24/24 10/25/24 10/26/24 23:59 23:59 23:59 23:59 Intake Total 1340 / 1340 360 / 360 Output Total 1200 / 1200 650 / 650 Balance 140 / 140 -290 / -290 Weight 65.544 kg 66.996 kg 65.856 kg Constitutional Constitutional: no acute distress *Routine HEENT Exam Head: Present normocephalic Eye: Present EOMI and PERRL ENT: Present mucous membranes moist *Routine Neck Exam Neck: Present supple; Absent lymphadenopathy *Routine Respiratory Exam Respiratory: Present CTA bilaterally *Routine Cardiovascular Exam Cardiovascular: Present RRR *Routine Abdominal Exam Abdominal: Present soft and normoactive bowel sounds; Absent tenderness *Routine Extremities Exam Extremities: Present edema; Absent cyanosis or clubbing *Routine Skin Exam Skin: Present warm; Absent rash *Routine Neurological Exam Neurological: Present alert Results Data Completed and Pending Labs on day of discharge: Labs from last 24 hours 10/26/24 10/26/24 10/26/24 11:08 08:48 06:40 WBC 8.6 RBC 3.27 L Hgb 8.8 L Hct 27.7 L MCV 84.7 MCH 26.9 L MCHC 31.8 RDW 15.8 Plt Count 296 MPV 11.4 H Neut % (Auto) 77.1 Lymph % (Auto) 15.2 [place] % (Auto) 5.3 Eos % (Auto) 1.2 Baso % (Auto) 0.3 Neut # (Auto) 6.6 Lymph # (Auto) 1.3 [place] # (Auto) 0.5 Eos # (Auto) 0.1 Baso # (Auto) 0.0 Sodium 139 Potassium 3.5 Chloride 104 Carbon Dioxide 27 Anion Gap 11.5 BUN 29 H D Creatinine 0.60 D Estimated Creat Clear 50 Estimated GFR 97 Est GFR ( Amer) 118 D Glucose 101 H POC Glucose 142 H 206 H Calcium 9.0 Total Bilirubin 1.2 AST 254 H ALT 104 H Alkaline Phosphatase 63 Total Creatine Kinase 2467 H* Troponin I 0.59 H Total Protein 6.1 L Albumin 3.2 L D Globulin 2.9 Albumin/Globulin Ratio 1.1 Vitamin B12 Folate 10.20 Urine Color Urine Appearance Urine pH Ur Specific [place] Urine Protein Urine Glucose (UA) Urine Ketones Urine Blood Urine Nitrate Urine Bilirubin Urine Urobilinogen Ur Leukocyte Esterase Urine RBC Urine WBC Ur Squamous Epith Cells Uric Acid Crystals Urine Bacteria Chlamy pneumoniae PCR Adenovirus (PCR) B. pertussis DNA (PCR) Coronavirus OC43 (PCR) Coronavirus HKU1 (PCR) Coronavirus 229E (PCR) SARS-CoV-2 (PCR) Coronavirus NL63 (PCR) Human Metapneumovir PCR Influenza A (H1) PCR Influ A () PCR Influenza A (H3) PCR Influenza Type A (PCR) Influenza Type B (PCR) M. pneumoniae (PCR) Parainfluenza 1 (PCR) Parainfluenza 2 (PCR) Parainfluenza 3 (PCR) Parainfluenza 4 (PCR) RSV (PCR) Entero/Rhino (PCR) 10/26/24 10/26/24 10/25/24 06:36 03:59 22:11 WBC RBC Hgb Hct MCV MCH MCHC RDW Plt Count MPV Neut % (Auto) Lymph % (Auto) [place] % (Auto) Eos % (Auto) Baso % (Auto) Neut # (Auto) Lymph # (Auto) [place] # (Auto) Eos # (Auto) Baso # (Auto) Sodium Potassium Chloride Carbon Dioxide Anion Gap BUN Creatinine Estimated Creat Clear Estimated GFR Est GFR ( Amer) Glucose POC Glucose 99 Calcium Total Bilirubin AST ALT Alkaline Phosphatase Total Creatine Kinase Troponin I 0.81 H Total Protein Albumin Globulin Albumin/Globulin Ratio Vitamin B12 Folate Urine Color Yellow Urine Appearance Clear Urine pH 6.0 Ur Specific [place] 1.020 Urine Protein Negative Urine Glucose (UA) 3+ Urine Ketones 1+ Urine Blood 2+ A Urine Nitrate Negative Urine Bilirubin 1+ A Urine Urobilinogen 0.2 Ur Leukocyte Esterase Negative Urine RBC 3-5 Urine WBC Occasional Ur Squamous Epith Cells 3-5 Uric Acid Crystals Trace Urine Bacteria Trace Chlamy pneumoniae PCR Adenovirus (PCR) B. pertussis DNA (PCR) Coronavirus OC43 (PCR) Coronavirus HKU1 (PCR) Coronavirus 229E (PCR) SARS-CoV-2 (PCR) Coronavirus NL63 (PCR) Human Metapneumovir PCR Influenza A (H1) PCR Influ A () PCR Influenza A (H3) PCR Influenza Type A (PCR) Influenza Type B (PCR) M. pneumoniae (PCR) Parainfluenza 1 (PCR) Parainfluenza 2 (PCR) Parainfluenza 3 (PCR) Parainfluenza 4 (PCR) RSV (PCR) Entero/Rhino (PCR) 10/25/24 10/25/24 10/25/24 19:38 19:08 17:54 WBC RBC Hgb Hct MCV MCH MCHC RDW Plt Count MPV Neut % (Auto) Lymph % (Auto) [place] % (Auto) Eos % (Auto) Baso % (Auto) Neut # (Auto) Lymph # (Auto) [place] # (Auto) Eos # (Auto) Baso # (Auto) Sodium Potassium Chloride Carbon Dioxide Anion Gap BUN Creatinine Estimated Creat Clear Estimated GFR Est GFR ( Amer) Glucose POC Glucose 182 H 127 H Calcium Total Bilirubin AST ALT Alkaline Phosphatase Total Creatine Kinase Troponin I Total Protein Albumin Globulin Albumin/Globulin Ratio Vitamin B12 518 Folate Urine Color Urine Appearance Urine pH Ur Specific [place] Urine Protein Urine Glucose (UA) Urine Ketones Urine Blood Urine Nitrate Urine Bilirubin Urine Urobilinogen Ur Leukocyte Esterase Urine RBC Urine WBC Ur Squamous Epith Cells Uric Acid Crystals Urine Bacteria Chlamy pneumoniae PCR Adenovirus (PCR) B. pertussis DNA (PCR) Coronavirus OC43 (PCR) Coronavirus HKU1 (PCR) Coronavirus 229E (PCR) SARS-CoV-2 (PCR) Coronavirus NL63 (PCR) Human Metapneumovir PCR Influenza A (H1) PCR Influ A (H1N1/09) PCR Influenza A (H3) PCR Influenza Type A (PCR) Influenza Type B (PCR) M. pneumoniae (PCR) Parainfluenza 1 (PCR) Parainfluenza 2 (PCR) Parainfluenza 3 (PCR) Parainfluenza 4 (PCR) RSV (PCR) Entero/Rhino (PCR) 10/25/24 10/25/24 10/25/24 16:00 15:20 12:21 WBC RBC Hgb Hct MCV MCH MCHC RDW Plt Count MPV Neut % (Auto) Lymph % (Auto) [place] % (Auto) Eos % (Auto) Baso % (Auto) Neut # (Auto) Lymph # (Auto) [place] # (Auto) Eos # (Auto) Baso # (Auto) Sodium Potassium Chloride Carbon Dioxide Anion Gap BUN Creatinine Estimated Creat Clear Estimated GFR Est GFR ( Amer) Glucose POC Glucose 211 H Calcium Total Bilirubin AST ALT Alkaline Phosphatase Total Creatine Kinase Troponin I 0.59 H Total Protein Albumin Globulin Albumin/Globulin Ratio Vitamin B12 Folate Urine Color Urine Appearance Urine pH Ur Specific [place] Urine Protein Urine Glucose (UA) Urine Ketones Urine Blood Urine Nitrate Urine Bilirubin Urine Urobilinogen Ur Leukocyte Esterase Urine RBC Urine WBC Ur Squamous Epith Cells Uric Acid Crystals Urine Bacteria Chlamy pneumoniae PCR Not detected Adenovirus (PCR) Not detected B. pertussis DNA (PCR) Not detected Coronavirus OC43 (PCR) Not detected Coronavirus HKU1 (PCR) Not detected Coronavirus 229E (PCR) Not detected SARS-CoV-2 (PCR) Not detected Coronavirus NL63 (PCR) Not detected Human Metapneumovir PCR Not detected Influenza A (H1) PCR Not detected Influ A (H1N1) PCR Not detected Influenza A (H3) PCR Not detected Influenza Type A (PCR) Not detected Influenza Type B (PCR) Not detected M. pneumoniae (PCR) Not detected Parainfluenza 1 (PCR) Not detected Parainfluenza 2 (PCR) Not detected Parainfluenza 3 (PCR) Not detected Parainfluenza 4 (PCR) Not detected RSV (PCR) Not detected Entero/Rhino (PCR) Not detected 10/25/24 08:16 WBC RBC Hgb Hct MCV MCH MCHC RDW Plt Count MPV Neut % (Auto) Lymph % (Auto) [place] % (Auto) Eos % (Auto) Baso % (Auto) Neut # (Auto) Lymph # (Auto) [place] # (Auto) Eos # (Auto) Baso # (Auto) Sodium Potassium Chloride Carbon Dioxide Anion Gap BUN Creatinine Estimated Creat Clear Estimated GFR Est GFR ( Amer) Glucose POC Glucose 269 H Calcium Total Bilirubin AST ALT Alkaline Phosphatase Total Creatine Kinase Troponin I Total Protein Albumin Globulin Albumin/Globulin Ratio Vitamin B12 Folate Urine Color Urine Appearance Urine pH Ur Specific [place] Urine Protein Urine Glucose (UA) Urine Ketones Urine Blood Urine Nitrate Urine Bilirubin Urine Urobilinogen Ur Leukocyte Esterase Urine RBC Urine WBC Ur Squamous Epith Cells Uric Acid Crystals Urine Bacteria Chlamy pneumoniae PCR Adenovirus (PCR) B. pertussis DNA (PCR) Coronavirus OC43 (PCR) Coronavirus HKU1 (PCR) Coronavirus 229E (PCR) SARS-CoV-2 (PCR) Coronavirus NL63 (PCR) Human Metapneumovir PCR Influenza A (H1) PCR Influ A () PCR Influenza A (H3) PCR Influenza Type A (PCR) Influenza Type B (PCR) M. pneumoniae (PCR) Parainfluenza 1 (PCR) Parainfluenza 2 (PCR) Parainfluenza 3 (PCR) Parainfluenza 4 (PCR) RSV (PCR) Entero/Rhino (PCR) DS: Diagnosis Discharge Diagnosis (1) Fall: Status: Acute Code(s): W19.XXXA - Unspecified fall, initial encounter (2) General weakness: Status: Acute Code(s): R53.1 - Weakness (3) Rhabdomyolysis: Status: Acute Code(s): M62.82 - Rhabdomyolysis (4) Hyperglycemia due to type 2 diabetes mellitus: Status: Acute Code(s): E11.65 - Type 2 diabetes mellitus with hyperglycemia Qualifiers: Diabetes mellitus shelter insulin use: with extermination inspector use Qualified Code(s): E11.65 - Type 2 diabetes mellitus with hyperglycemia; Z79.4 - local company intermodal truck driver (current) use of insulin Meds Home Medications and Allergies Home Medications ?Medication ?Instructions ?Recorded ?Confirmed ?Type aspirin 81 mg tablet 81 mg PO DAILY Heart disease 05/17/22 10/24/24 History cetirizine 10 mg tablet 10 mg PO DAILY PRN allergies 05/17/22 10/24/24 History isosorbide mononitrate 60 mg 60 mg PO DAILY #90 tabs 1 10/24/24 Rx tablet,extended release 24 hr fenofibric acid (choline) 135 mg 135 mg PO DAILY 04/3010/24/24 History capsule,delayed release pen needle, diabetic 31 gauge x #100 ea 04/30/2410/24 Rx 05/18 valsartan 320 1 tab PO DAILY 320/25mg 04/1410/24/24 History mg-hydrochlorothiazide 25 mg tablet insulin glargine 100 unit/mL (3 20 unit (0.2 mL) SQ DA MISBAH 30 days 08/01/24 10/24/24 Rx mL) subcutaneous pen (Lantus #6 mL Solostar U-100 Insulin) blood sugar diagnostic (Accu-Chek #10 ea 08/12/2410/13 History Guide test strips) diclofenac sodium 1 % topical gel 2 g topical QID #100 grams 08/15/24 10/24/24 Rx hydroxocobalamin 1,000 mcg/mL 100 mcg (0.1 mL) IM QMON TH #0.1 mL 09/06/24 10/24/24 Rx intramuscular solution insulin pump cart,auto,BT,G6/7 #5 ea 09/09/24 10/24/24 Rx (Omnipod 5 G6-G7 Pods (Gen 5) subcutaneous cartridge) insulin pump cartridge,auto #1 ea 09/09/24 10/24/24 Rx dose,BT,G6/G7 with controller subcutaneous (Omnipod 5 G6-G7 Intro Kit(Gen 5) subcutaneous cartridge and controller) atorvastatin 80 mg tablet (Lipitor) 80 mg PO HS #90 ta bs 09/13/24 10/24/24 Rx nitroglycerin 0.4 mg sublingual 0.4 mg sublingual Q5MI CINEMA OR THEATRE MANAGER PRN Chest 09/30/24 10/24/24 Rx tablet Pain #25 tabs blood-glucose sensor (Dexcom G7 #3 ea 10/03/24 5 Rx Sensor device) blood-glucose,social media content manager,cont #1 ea 10/03/24 10/24/24 Rx (Dexcom G7 Preschool Teacher'S Assistant) pen needle, diabetic 31 gauge x #100 ea 10/18/2410/24 Rx 07/28 empagliflozin 25 mg tablet 25 mg PO DAILY 10/24/2405/08 History (Jardiance) metformin 500 mg tablet,extended 1,000 mg PO BID 10/2410/24/24 History release 24 hr clopidogrel 75 mg tablet 75 mg PO DAILY 10/25/2410/13 History insulin lispro-aabc 100 unit/mL 0 unit SQ DIRECTED omnipod use 10/25/24 10/25/24 History subcutaneous solution pantoprazole 40 mg tablet,delayed 40 mg PO HS 10/25/24 10/25/24 History release semaglutide 0.25 mg or 0.5 mg (2 0.25 mg SQ WEEKLY 10/24/24 History mg/3 mL) subcutaneous pen injector (Ozempic) carvedilol 25 mg tablet 12.5 mg (1/2 x 25 mg) PO BID 30 10/26/24 10/24/24 Rx days #0 tabs fluoxetine 10 mg capsule 10 mg PO DAILY 30 days #30 c aps 10/26/24 Rx New Prescriptions to Start Prescriptions: fluoxetine Steffen Varma Allergies Allergy/AdvReac Type Severity Reaction Status Date / Time No Known Allergies Allergy Verified 10/21/24 10:39 Discharge Plan Disposition Patient Disposition: Xfer [facility] Condition: Fair Discharge Order Discharge Orders: Discharge Order (Routine); Ordered 10/26/24 Ordered By: Steffen Varma Follow up Plan Follow up with: Tej Irving PA [Physician Retirement Plan Specialist, Cardiology] - 1 week Bandar Norris DO [Staff Physician, Orthopedics] - 1 week Prescriptions/Medication Reconciliation: New fluoxetine 10 mg capsule 10 mg PO DAILY 30 Days Qty: 30 0RF Continued isosorbide mononitrate 60 mg tablet extended release 24 hr 60 mg PO DAILY Qty: 90 3RF atorvastatin [Lipitor] 80 mg tablet 80 mg PO HS Qty: 90 3RF (DME) Accu-Chek Guide test strips Strip See Rx Instructions .ROUTE .MEDSUPPLY Qty: 10 Rx Instructions: As directed diclofenac sodium 1 % gel 2 g topical QID Qty: 100 2RF Rx Instructions: apply to single elbow, wrist or hand; for hand includes palm/fingers/back of hand cetirizine 10 mg tablet 10 mg PO DAILY PRN (Reason: allergies) aspirin 81 mg tablet 81 mg PO DAILY insulin glargine [Lantus Solostar U-100 Insulin] 100 unit/mL (3 mL) insulin pen 20 unit SQ DAILY 30 Days Qty: 6 3RF hydroxocobalamin 1,000 mcg/mL solution 100 mcg IM QMONTH Qty: 0.1 5RF (DME) Omnipod 5 G6-G7 Intro Kt(Gen5) Cartridge See Rx Instructions .Route Qty: 1 0RF Rx Instructions: As directed (DME) Omnipod 5 G6-G7 Pods (Gen 5) Cartridge See Rx Instructions .Route Qty: 5 2RF Rx Instructions: As directed nitroglycerin 0.4 mg tablet, sublingual 0.4 mg sublingual Q5MINP PRN (Reason: Chest Pain) Qty: 25 4RF Rx Instructions: PLACE 1 TABLET UNDER TONGUE EVERY 5 MINUTES NEEDED FOR CHEST PAIN; DO NOT EXCEED 3 DOSES PER EPISODE (DME) Dexcom G7 Sensor Device See Rx Instructions .Route Qty: 3 4RF Rx Instructions: As directed (DME) Dexcom G7 Preschool Teacher'S Assistant Misc See Rx Instructions .Route Qty: 1 3RF Rx Instructions: As directed (DME) pen needle, diabetic 31 gauge x 3/16 needle See Rx Instructions .ROUTE .COMPLEX Qty: 100 0RF Dose Instruction: DIRECTED Rx Instructions: DIRECTED fenofibric acid (choline) 135 mg capsule,delayed release(DR/EC) 135 mg PO DAILY (DME) pen needle, diabetic 31 gauge x 1/4 needle See Rx Instructions .ROUTE .MEDSUPPLY Qty: 100 0RF Rx Instructions: As directed metformin 500 mg tablet extended release 24 hr 1,000 mg PO BID Rx Instructions: TAKE 2 TABLETS BY MOUTH TWICE A DAY FOR DIABETES Jardiance 25 mg tablet 25 mg PO DAILY clopidogrel 75 mg tablet 75 mg PO DAILY pantoprazole 40 mg tablet,delayed release (DR/EC) 40 mg PO HS Ozempic 0.25 mg or 0.5 mg (2 mg/3 mL) pen injector 0.25 mg SQ WEEKLY Rx Instructions: for 4 weeks insulin lispro-aabc 100 unit/mL solution 0 unit SQ DIRECTED Rx Instructions: max dose of 60 units, use in omnipod Changed carvedilol 25 mg tablet 12.5 mg PO BID 30 Days Qty: 0 0RF Held valsartan-hydrochlorothiazide 320-25 mg tablet 1 tab PO DAILY Hold Instructions: Resume on 11/09/24. Hold this medication until follow-up with cardiology. Blood pressures have been stable without this medication. Problem Reconciliation Problems Reviewed?: Yes Patient Discharge Instructions Patient Instructions: Exercises to Help Prevent Falls, Rhabdomyolysis, DI for Fatigue, How to Prevent Falls Print Language: Occitan Providers Primary Care Provider: Provider,Referral Admit Provider: Hitesh Roy Attending Provider: Hitesh Roy
--- NOTE | 2024-10-26 13:52 | PC.NURSE ---
Rachana Noble-1945 Current Medications Acetaminophen (Acetaminophen 325mg Tab) 650 mg PO Q4HP PRN PRN Reason: Fever or Mild Pain (1-3) Stop: 11/23/24 22:30 Aspirin (Aspirin Ec 81mg Tablet) 81 mg PO DAILY PENNY Stop: 11/24/24 08:59 Last Admin: 10/26/24 08:44 Dose: 81 mg Atorvastatin Calcium (Atorvastatin 40mg Tablet) 80 mg PO HS PENNY Stop: 11/24/24 20:59 Last Admin: 10/25/24 20:58 Dose: 80 mg Carvedilol (Carvedilol 25mg Tablet) 25 mg PO BID PENNY Stop: 11/24/24 08:59 Last Admin: 10/26/24 08:44 Dose: 25 mg Clopidogrel Bisulfate (Clopidogrel 75mg Tab) 75 mg PO DAILY PENNY Stop: 11/24/24 08:59 Last Admin: 10/26/24 08:44 Dose: 75 mg Empagliflozin (Empagliflozin 25mg Tablet) 25 mg PO DAILY PENNY Stop: 11/24/24 08:59 Last Admin: 10/26/24 08:44 Dose: 25 mg Enoxaparin Sodium (Enoxaparin 80mg/0.8ml Syringe) 65 mg 1 mg/kg (65 mg) SUBCUT Q12H PENNY Stop: 11/25/24 05:59 Last Admin: 10/26/24 06:35 Dose: 65 mg Fenofibrate (Fenofibrate 134mg Capsule) 134 mg PO DAILY PENNY Stop: 11/24/24 08:59 Last Admin: 10/26/24 08:44 Dose: 134 mg Lactated Ringer's (Lactated Ringer's 1000 Ml Bag) 1,000 mls @ 100 mls/hr IV .Q10H PENNY Stop: 11/24/24 21:29 Last Admin: 10/26/24 09:57 Dose: 75 mls/hr Insulin Glargine (Insulin Glargine 100 Units/Ml 3ml Flexpen) 20 unit SUBCUT DAILY PENNY Stop: 11/24/24 08:59 Last Admin: 10/26/24 08:49 Dose: 20 units Isosorbide Mononitrate (Isosorbide Saunders 60mg Tab.Er.24h) 60 mg PO DAILY PENNY Stop: 11/24/24 08:59 Last Admin: 10/26/24 08:44 Dose: 60 mg Loratadine (Loratadine 10mg Tablet) 10 mg PO DAILY PENNY Stop: 11/24/24 08:59 Last Admin: 10/26/24 08:44 Dose: 10 mg Nitroglycerin (Nitroglycerin 0.4mg Sl Tablet) 0.4 mg SL Q5MINP PRN PRN Reason: Chest Pain Stop: 11/24/24 06:00 Ondansetron HCl (Ondansetron 4mg/2ml Vial) 4 mg IV Q8HP PRN PRN Reason: Nausea Stop: 11/23/24 22:30 Pantoprazole Sodium (Pantoprazole 40mg Tablet) 40 mg PO HS PENNY Stop: 11/24/24 20:59 Last Admin: 10/25/24 20:58 Dose: 40 mg Sodium Chloride (Sodium Chloride 0.9% 10ml Flush Syringe) 10 ml IV NEEDED PRN PRN Reason: Maintain IV Site Stop: 11/24/24 07:26
[2024-10-26 14:56] LABS: Hemoglobin A1C 11.6 % (4.0-6.0)
--- NOTE | 2024-10-26 19:35 | PC.NURSE ---
pt left for with ems to [facility] at 19:29
== END 2024-10-26 19:32 ==
LOC: ER 22:17 → 2ND 22:52
PROVIDERS: Internal Medicine; Student in an Organized Health Care Education/Training Program; Admitting Provider Internal Medicine Adolescent Medicine; Emergency Provider Emergency Medicine; Visit Provider Internal Medicine Adolescent Medicine
DX: R53.1 Weakness (principal); M62.82 Rhabdomyolysis; E11.65 Type 2 diabetes mellitus with hyperglycemia; S82.832A Other fracture of upper and lower end of left fibula, initial encounter for closed fracture; G93.89 Other specified disorders of brain; F32.A Depression, unspecified; I10 Essential (primary) hypertension; E78.5 Hyperlipidemia, unspecified; I25.10 Atherosclerotic heart disease of native coronary artery without angina pectoris; Z86.73 Personal history of transient ischemic attack (TIA), and cerebral infarction without residual deficits; R29.6 Repeated falls; Z95.1 Presence of aortocoronary bypass graft; Z79.4 Long term (current) use of insulin; Z79.82 Long term (current) use of aspirin; Z79.84 Long term (current) use of oral hypoglycemic drugs; Z79.02 Long term (current) use of antithrombotics/antiplatelets; Z79.85 Long-term (current) use of injectable non-insulin antidiabetic drugs; Z79.899 Other long term (current) drug therapy; Z96.41 Presence of insulin pump (external) (internal); Y92.009 Unspecified place in unspecified non-institutional (private) residence as the place of occurrence of the external cause
CPT/HCPCS: 96360; 96361 ×2; 0223U; 36415; 70450; 70551; 71045; 72125; 80053; 80307; 80320; 81001; 82140; 82550; 82607; 82746; 82803; 82962; 83036; 83605; 83735; 83880; 84100; 84439; 84443; 84484; 85025; 85610; 86803; 87389; 87633; 93005; 93306; 97162; 97166; 97530; G0378; J1644; J1650; J3420; J7030; J7120

== ENCOUNTER 2024-10-30 04:30 | Emergency (ER) | payer MEDICARE, SELFPAY ==
[2024-10-30 04:39] VITALS: RESP 16; O2SAT 62; BMI 25.8
--- NOTE | 2024-10-30 04:43 | HMH.EDGENADL ---
Discharge Plan Disposition Patient Disposition: Date/Time: 10/30/24 04:36 Clinical Impressions Clinical Impression: Cardiac arrest CAD (coronary artery disease) Qualifiers: Coronary Disease-Associated Artery/Lesion type: bypass graft [place] vs. transplanted heart: [place] heart Associated angina: with other forms of angina Qualified Code(s): I25.708 - Atherosclerosis of coronary artery bypass graft(s), unspecified, with other forms of angina pectoris Discharge ED Provider: Landy Stein Adult HPI General Chief complaint: Cardiac Arrest/CPR Stated complaint: CODE Time Seen by Provider: 10/30/24 04:42 History of Present Illness HPI narrative: 78-year-old female with a history of type 2 diabetes, GERD, CVA, hypertension, hyperlipidemia, CAD, previous CABG presents to the ER from [facility] via EMS as a CODE BLUE cardiac arrest. EMS arrived in the ER at 0430 with the patient on auto pulse and air-q LMA in place. They report that they were called to [facility] for cardiac arrest and had been told by the intermediate that she was last seen alive at 2:30 AM and then was checked on around 4 and found to be not breathing with no pulse. They started CPR and placed the AED prior to EMS arrival. EMS reports AED was advising no shock advised . They report they placed the patient on the auto pulse, realized it was upside down but it was in good position and seem to be functioning well so they just left it. They placed the LMA and transported the patient to [facility] for further interventions. Patient did not have a line prior to arrival. No epinephrine administered prior to arrival. After the code, I called [facility] and spoke with Misty who reports she was the patient's nurse. She reports that the patient received her pain meds and took them like normal and seemed relatively well around 8 PM. Her blood glucose was checked at that time and was okay . Patient was then checked on again a little after 2 AM where staff goes in the room and turned on the lights and was reportedly seen alive and sleeping at that time. She reports that when they started morning rounds just before 4 AM the patient was found pulseless and not breathing so they started CPR and use the AED but no shock was advised. Patient's family presented to the ER after the code and provided additional information that the patient had been admitted to our hospital recently and had just been taken to [facility] after her discharge from the hospital. They report she had not been ill in the last few days and seemed okay when they visited her on Monday. Daughter Lashon provided this history. Related Data Home Medications ?Medication ?Instructions ?Recorded ?Confirmed aspirin 81 mg tablet 81 mg PO DAILY Heart disease 05/17/22 10/24/24 cetirizine 10 mg tablet 10 mg PO DAILY PRN allergies 05/17/22 10/24/24 fenofibric acid (choline) 135 mg 135 mg PO DAILY 04/30/24 10/24/24 capsule,delayed release valsartan 320 1 tab PO DAILY 320/25mg 04/30/24 10/24/24 mg-hydrochlorothiazide 25 mg tablet Held on 10/26/24. Instructions: Resume on 11/09/24. Hold this medication until follow-up with cardiology. Blood pressures have been stable without this medication. blood sugar diagnostic (Accu-Chek #10 ea 08/12/24 10/24/24 Guide test strips) empagliflozin 25 mg tablet 25 mg PO DAILY 10/24/24 10/24/24 (Jardiance) metformin 500 mg tablet,extended 1,000 mg PO BID 10/24/24 10/24/24 release 24 hr clopidogrel 75 mg tablet 75 mg PO DAILY 10/25/24 10/25/24 insulin lispro-aabc 100 unit/mL 0 unit SQ DIRECTED omnipod use 10/25/24 10/25/24 subcutaneous solution pantoprazole 40 mg tablet,delayed 40 mg PO HS 10/25/24 10/25/24 release semaglutide 0.25 mg or 0.5 mg (2 0.25 mg SQ WEEKLY 10/25/24 10/24/24 mg/3 mL) subcutaneous pen injector (Ozempic) Previous Rx's ?Medication ?Instructions ?Recorded isosorbide mononitrate 60 mg 60 mg PO DAILY #90 tabs 03/12/24 tablet,extended release 24 hr pen needle, diabetic 31 gauge x #100 ea 04/30/24 1/ insulin glargine 100 unit/mL (3 20 unit (0.2 mL) SQ DAILY 30 days 08/01/24 mL) subcutaneous pen (Lantus #6 mL Solostar U-100 Insulin) diclofenac sodium 1 % topical gel 2 g topical QID #100 grams 04/03/25 hydroxocobalamin 1,000 mcg/mL 100 mcg (0.1 mL) IM QMONTH #0.1 mL 09/06/24 intramuscular solution insulin pump cart,auto,BT,G6/7 #5 ea 09/09/24 (Omnipod 5 G6-G7 Pods (Gen 5) subcutaneous cartridge) insulin pump cartridge,auto #1 ea 09/09/24 dose,BT,G6/G7 with controller subcutaneous (Omnipod 5 G6-G7 Intro Kit(Gen 5) subcutaneous cartridge and controller) atorvastatin 80 mg tablet (Lipitor) 80 mg PO HS #90 tabs 09/13/24 nitroglycerin 0.4 mg sublingual 0.4 mg sublingual Q5MINP PRN Chest 09/30/24 tablet Pain #25 tabs blood-glucose sensor (Dexcom G7 #3 ea 10/03/24 Sensor device) blood-glucose,staff air tactical officer,cont #1 ea 10/03/24 (Dexcom G7 Cloth Shrinking Machine Operator) pen needle, diabetic 31 gauge x #100 ea 10/18/24 3/16 carvedilol 25 mg tablet 12.5 mg (1/2 x 25 mg) PO BID 30 10/26/24 days #0 tabs fluoxetine 10 mg capsule 10 mg PO DAILY 30 days #30 caps 10/26/24 Allergies Allergy/AdvReac Type Severity Reaction Status Date / Time No Known Allergies Allergy Verified 10/21/24 10:39 [facility] Disclaimer: The information contained in this section may have been updated after the patient was seen, as this information can be updated by other users. Medical History GERD (gastroesophageal reflux disease) UTI (urinary tract infection) Diastolic dysfunction Dyspnea Hyperlipidemia Abnormal result of cardiovascular function study Abnormal electrocardiogram [ECG] [EKG] Typical angina Menopause Skin cancer Diabetes Hypertension Surgical History History of hysterectomy Hx of CABG Family History Other Cancer Family history of diabetes mellitus type II No significant family history Social History Smoking Status: Unknown if ever smoked alcohol intake: never current occupational status: other Travel in the last 8 weeks?: None housing: house Other Medical History Have you received the Flu Vaccine for this season: No Have you received the Pneumonia Vaccine: No ROS Obtained: Yes unobtainable due to mental status Physical Exam General General appearance: obtunded Comment: Unresponsive, cool, pale Head Head exam: atraumatic and normocephalic Eye Eye exam: Absent PERRL (Pupils fixed at 3 mm) ENT ENT exam: Present other (air-Q LMA in place, emesis from the esophageal port) Neck Neck exam: Present normal inspection Chest Chest inspection: Present symmetric chest wall rise Respiratory Respiratory exam: Present other (Rhonchorous breath sounds bilaterally, no respiratory effort from the patient) Cardiovascular Cardiovascular exam: Present other (No rate or rhythm, no pulse) Abdominal Exam Abdominal exam: Present soft; Absent distention Extremities Exam Extremities exam: Present other (Extremities were cool to the touch and pale, extremities were also stiff); Absent normal capillary refill (No capillary refill) Neurological Exam Neurological exam: Present other (Unresponsive, GCS 3 T) Skin Skin exam: Present other (Skin was dry but cool to the touch in all extremities, patient was slightly warm to the touch centrally around her neck and chest) Medical Decision Making Medical Records Medical records reviewed: Yes I reviewed the patient's medical records. Screening: Per USPSTF and CDC recommendations, given the prevalence of disease in our region, it is our hospital?s policy to screen for HIV and viral Hepatitis for all patients aged 18 and over and those with ongoing risk factors. MR Comment: Last set of vitals from the nursing facility per the records they provided was at 1945 [employer] Inquiry Pt receiving controlled substance: No Vital Signs: 10/30/24 04:39 Respiratory Rate 16 02 Sat by Pulse Oximetry 62 L Oxygen Delivery Method Mechanical Ventilation Medical Decision Narrative: In summary, 78-year-old female with multiple comorbidities not at goal therapy presented to the ER as a CODE BLUE cardiac arrest after being found apneic with no pulse at [facility]. Patient had reportedly been previously seen alive between 2 and 2:30 AM by facility staff, approximately 1.5 to 2 hours prior to her being found. I was present at bedside upon patient's arrival to the ER. LMA airway in place, bilateral breath sounds are rhonchorous, patient appears atraumatic, no significant peripheral edema, extremities are pale and cool to the touch with no capillary refill, extremities are becoming stiff but patient is somewhat warm to the touch centrally. Compressions ongoing with auto pulse. Epinephrine administered through IO which had been placed by RN upon patient's arrival. She was not saturating well with the LMA in place so this was exchanged for an endotracheal tube which will also allow for end-tidal capnometry and oxygen saturation improved to 94% with bagging, patient's ETCO2 was only 4. Patient also received bicarb. At initial pulse check in the ER patient was in asystole with no pulse. Differential diagnosis includes but is not limited to arrhythmia, STEMI, PE, intracranial bleed, electrolyte abnormality, hypoglycemia, other metabolic derangement, among others. After assessing the patient upon her arrival I believe the patient has been for an extended period of time since she is cold to the touch peripherally and limbs are stiffening indicative of rigor mortis. The code was only briefly continued to have the ability to fully assess the patient including end-tidal and give the opportunity for improved oxygenation. Unfortunately despite continued ACLS interventions, at the next pulse check patient remained asystolic with no pulses, no cardiac activity on ultrasound. Patient was GCS 3 T with no spontaneous respirations. Patient was pronounced at 0436. Family (patient's daughter) presented to the ER and I discussed the case with her and notified her of the patient's passing. She was offered autopsy which she refused. She provided home information and postmortem protocols were followed. Procedures Intubation Mallampati Score:: Class II Time out performed: No (Emergent situation) sedative: none (Patient unresponsive, CODE BLUE) Laryngoscope: Rad (MAC 4, video laryngoscope) ET Tube Size: 7.5 ET Tube Uncuffed: No Tube Secured Depth (cm): 20 Tube Secured Location: teeth Tube Placement Confirmation: visualized tube passing through cords, equal breath sounds bilaterally, no breath sounds over epigastrium and confirmation by capnometry Patient Tolerated Procedure: no complications Intubation Complications: none Additional Comments: Intubation proceeded without complication, after intubation patient's oxygen saturations improved with bagging. Miscellaneous Procedure Procedure Performed: Limited Cardiac Ultrasound Indication: CODE BLUE Identified cardiac views: Subxiphoid Findings: No cardiac activity, no pericardial effusion Impression: - No cardiac activity, no pericardial effusion Images were not saved to permanent archive The study was technically adequate CPT: 98297 This study was performed by me, and I personally interpreted all images/videos. Based on my clinical judgement, these images were adequate and did not necessitate further imaging. Critical Care Critical Care Time Critical Care Time: Yes Attestation: On 10/30/24, the high probability of a clinically significant, sudden or life threatening deterioration of the following system(s) required my full and direct attention, intervention and personal management. The time I documented below is in addition to time spent performing reported procedures but includes the following listed in this critical care notation. Total Time Total Critical Care Time: 5
--- NOTE | 2024-10-30 05:10 | PC.NURSE ---
CODE BLUE NOTE: 0430- PT ARRIVED TO ED VIA EMS IN CARDIAC ARREST FROM [facility] [place]. LAST KNOWN NORMAL 0230 PER NURSING FACILITY STAFF. CPR IN PROGRESS VIA AUTO PULSE. LMA IN PLACE WITH BVM. SPO2 62%. 0432- R TIBIAL IO PLACED BY Nathen SHEEHAN RN. PULSE CHECK- NO PULSE, ASYSTOLE ON ZOLL, CPR RESUMED. 0433- 1MG EPI GIVEN VIA IO. IV ATTEMPT TO [place] BY Heather MONTE RN 0435- MD SAM INTUBATED PT WITH 7.5 ETT, 20CM AT THE TEETH. ETCO2- 2. HOLD PULSE CHECK AT THIS TIME, CONTINUE CPR PER MD SAM. 1 AMP BICARB GIVEN VIA TIBIA IO. SPO2 94% ETCO2- 4 0436- PULSE CHECK. NO PULSE. ASYSTOLE ON ZOLL. 0436- TIME OF PER MD SAM 0445- DRUG ABUSE SOCIAL WORKER PAGED. 0455- CALLED AND SPOKE WITH [employer] [facility].
--- NOTE | 2024-10-30 05:55 | EXP.DEATH.NO ---
Pronouncement Note Date and Time of Date of : 10/30/24 Time of : 04:36 PCOD Preliminary cause of : Coronary artery disease Additional Data Confirmation of : no pulse, no respirations, no heart sounds and pupils fixed and dilated (pupils fixed 3mm) Family: at bedside Attending/PCP notified?: Yes Attending physician: Landy Stein MD Was code activated?: Yes Autopsy should be considered if:: Unknown or unanticipated medical complications Cause is not known with certainty on clinical grounds Would allay concerns of the public/family regarding Unexplained/unexpected apparently natural and not subject to a forensic medical jurisdiction DOA Within 24 hours of admission Sustained or apparently sustained injury while in the hospital Result of high risk, infectious and contagious disease Obstetric and pediatric arising from environmental or occupational hazard Unexplained/unexpected from dental, medical, or surgical diagnostic procedures and/or therapies Would disclose a known or suspected illness which also may have a bearing on survivors or recipients of transplanted organs Autopsy requested?: No Refused by family legal instruments examiner notified?: Yes Organ bank notified?: Yes Advance directives: No
--- NOTE | 2024-10-30 06:07 | PC.NURSE ---
0600 PT CLEARED BY [employer] 0605- SPOKE WITH [facility]. STATES THEY ARE REACHING OUT TO FAMILY AND WILL CALL US BACK.
--- NOTE | 2024-10-30 06:55 | PC.NURSE ---
called [facility] at this time. States they have not called family member at this time, and they will get back with us after their shift change @0712
== END 2024-10-30 07:28 | disposition expired ==
LOC: ER 05:43
PROVIDERS: Emergency Provider Emergency Medicine
DX: I46.9 Cardiac arrest, cause unspecified (principal); I25.708 Atherosclerosis of coronary artery bypass graft(s), unspecified, with other forms of angina pectoris
CPT/HCPCS: 99285